=== PATIENT | female | born 1950 | race Caucasian/White ===

== ENCOUNTER → 2019-10-22 11:43 | Outpatient (CLI) | payer MEDICARE, OTHER, SELFPAY ==
--- NOTE | ~2019-10-22 | US_ITS ---
EXAMINATION: US thyroid DATE: 10/22/2019 12:06 INDICATION: Nontoxic multinodular goiter. TECHNIQUE: Multiple ultrasound images of the thyroid were obtained. COMPARISON: None. FINDINGS: The right thyroid lobe measures 3.2 x 0.7 x 1.0 cm. The left thyroid lobe measures 2.4 x 0.8 x 0.8 c m. The thyroid demonstrates heterogeneous echogenicity. Vascularity is increased. In the left thyroi d lobe, there is a 5 mm solid, hypoechoic, [id number] nodule with ill-defined margin without ech ogenic foci (TI-RADS TR4), likely not clinically significant. IMPRESSION: 1. Heterogeneous, hypervascular thyroid, likely chronic lymphocytic thyroiditis. Reviewed, dictated and finalized at location A. N HOSPITALIST PHYSICIAN IMPRESSION: 1. Heterogeneous, hypervascular thyroid, likely chronic lymphocytic thyroiditis .
== END ==
PROVIDERS: PCP Internal Medicine; Visit Provider Internal Medicine
DX: E04.2 Nontoxic multinodular goiter (principal)
CPT/HCPCS: 76536

== ENCOUNTER 2020-04-14 10:22 | Outpatient (CLI) | payer MEDICARE, OTHER, SELFPAY ==
--- NOTE | ~2020-04-14 | MM_ITS ---
EXAMINATION: MM screening [facility] BI w bre HISTORY: Screening TECHNIQUE: Craniocaudal and mediolateral oblique 3-D tomosynthesis images were obtained and synthetic 2-D images were generated. CAD analysis was submitted and interpreted. COMPARISON: Comparison to multiple prior studies sequentially, with oldest reviewed study dated 11/2013. BREAST PARENCHYMAL COMPOSITION: There are scattered areas of fibroglandular density. FINDINGS: Stable benign-appearing right breast mass. There is no evidence of suspicious mass, calcifi cation, or architectural distortion to suggest malignancy in either breast. There has been no suspici ous interval change. IMPRESSION: 1. No mammographic evidence of malignancy. 2. Recommend routine screening mammography in one year. BI-RADS Category 2: Benign finding(s). Reviewed, dictated and finalized at location A.
== END 2020-04-14 10:23 | disposition home or self-care (01) ==
PROVIDERS: PCP Internal Medicine; Visit Provider Internal Medicine
DX: Z12.31 Encounter for screening mammogram for malignant neoplasm of breast (principal)
CPT/HCPCS: 77063; 77067

== ENCOUNTER → 2020-11-16 10:45 | Outpatient (CLI) | payer MEDICARE, OTHER, SELFPAY ==
--- NOTE | ~2020-11-16 | US_ITS ---
EXAMINATION: US thyroid EXAM DATE: 11/16/2020 11:27 INDICATION: Non-toxic multinodular goiter. TECHNIQUE: Multiple grayscale and Doppler images of the thyroid were obtained (by a technologist who performed the scan) and subsequently reviewed. Individual nodules and recommendations may be reporte d in accordance with TI-RADS system as designated by the 2017 ACR White Paper TI-RADS committee. Comp arison is made to prior examination from 10/22/2019. FINDINGS: The right thyroid lobe measures 2.3 x 0.8 x 0.8 cm, the left measuring 2.3 x 0.8 x 0.6 cm. Diffusely heterogeneous thyroid echogenicity without superimposed focal nodule identified. IMPRESSION: Small heterogeneous thyroid. Reviewed, dictated and finalized at location B. MOTOR OPERATOR
== END ==
PROVIDERS: PCP Internal Medicine; Visit Provider Internal Medicine
DX: E04.2 Nontoxic multinodular goiter (principal)
CPT/HCPCS: 76536

== ENCOUNTER 2021-05-11 08:44 | Outpatient (CLI) | payer MEDICARE, SELFPAY ==
--- NOTE | ~2021-05-11 | MM_ITS ---
EXAMINATION: MM screening [facility] BI w bre HISTORY: Screening TECHNIQUE: Craniocaudal and mediolateral oblique 3-D tomosynthesis images were obtained and synthetic 2-D images were generated. CAD analysis was submitted and interpreted. COMPARISON: Comparison to multiple prior studies sequentially, with oldest reviewed study dated 05/2015. BREAST PARENCHYMAL COMPOSITION: There are scattered areas of fibroglandular density. FINDINGS: There is a stable circumscribed radiolucent mass in the upper outer quadrant of the right b reast without significant change dating back to 12/17/2014, considered benign in the absence of gandara e. There is no evidence of suspicious mass, calcification, or architectural distortion to suggest mal ignancy in either breast. There has been no suspicious interval change. IMPRESSION: 1. No mammographic evidence of malignancy. 2. Recommend routine screening mammography in one year. BI-RADS Category 2: Benign finding(s). Reviewed, dictated and finalized at location A.
== END 2021-05-11 08:45 | disposition home or self-care (01) ==
LOC: ANHIMG 08:48
PROVIDERS: PCP Internal Medicine; Visit Provider Internal Medicine
DX: Z12.31 Encounter for screening mammogram for malignant neoplasm of breast (principal)
CPT/HCPCS: 77063; 77067

== ENCOUNTER → 2021-12-07 10:54 | Outpatient (CLI) | payer MEDICARE, SELFPAY ==
--- NOTE | ~2021-12-07 | US_ITS ---
EXAMINATION: US thyroid DATE: 12/07/2021 12:32 INDICATION: Nontoxic multinodular goiter. TECHNIQUE: Multiple ultrasound images of the thyroid were obtained. COMPARISON: Ultrasound 11/16/2020 FINDINGS: The right thyroid lobe measures 2.7 x 1.1 x 0.8 cm. The left thyroid lobe measures 2.2 x 0.7 x 1.2 c m. The thyroid demonstrates heterogeneous echogenicity. No discrete nodule. Vascularity is normal. IMPRESSION: 1. Small heterogeneous thyroid, likely chronic lymphocytic (Jose R) thyroiditis. Reviewed, dictated and finalized at location A. IMPRESSION: 1. Small heterogeneous thyroid, likely chronic lymphocytic (Jose R) thyroidi tis.
--- NOTE | ~2021-12-07 | CT_ITS ---
EXAMINATION: CT abdomen pelvis wo/w con DATE: 12/07/2021 12:16 INDICATION: Microscopic hematuria TECHNIQUE: Computed tomography (CT) of the abdomen and pelvis was performed without and subsequently with 130 CC Omnipaque 350 intravenous contrast. Automated exposure control and iterative reconstructi on technique were employed. Exam dose: 1887.32 mGy-cm total exam DLP. COMPARISON: None. FINDINGS: There is mild discoid atelectasis or scarring at the lung bases. No basilar consolidation. Heart size is within normal range. No pericardial or pleural effusion. 2.4 cm lateral segment left hepatic cyst. Several much smaller hepatic cysts. The gallbladder is present. No gallbladder wall thickening or pericholecystic fluid or fat stranding. No bile duct or pancreatic duct dilatation. No hepatic space-occupying mass lesion. No pancreatic ma ss lesion or calcification. Normal splenic size with some calcified granulomas. Normal morphology of the adrenal glands 1.4 cm exophytic right renal cyst. 4 mm posterior lower pole left renal probable cortical cyst. No mass lesion of the renal collecting systems, renal pelves, ureters or urinary bladder is evident. No ureteral calculus or hydroureteronephrosis. The urinary bladder is unremarkable. Retroverted uteru s Small sliding hiatal hernia. Normal appendix. Diverticulosis of the colon; no CT evidence of diverticulitis. No bowel obstruction, bowel wall thickening, pneumatosis or intraperitoneal free air. Small fat-containing umbilical hernia. Degenerative changes of the lumbar spine. No suspicious osteolytic or osteoblastic lesions are noted. IMPRESSION: 1.4 cm right renal cyst 4 mm lower pole left renal cyst No urinary tract calculus or hydroureteronephrosis 2.4 cm lateral segment left hepatic cyst, several much smaller hepatic cysts Retroverted uterus Reviewed, dictated and finalized at Location A. Reviewed, dictated and finalized at location A.
--- NOTE | ~2021-12-07 | DEXA_ITS ---
Bone Density Report Name: EVITA BARILLAS Age: 71 Sex: Female Ethnicity: White Date of : 1950 Indication: monitoring treatment; parental hip fracture; height loss; postmenopausal Referring Provider: DONG, NURIS Study: Bone densitometry was performed. Exam Date: December 07, 2021 Accession number: [id number] Bone Density: Region BMD T-score Z-score Classification AP Spine (L1-L4) 1.326 2.5 4.9 Normal Femoral Neck (Left) 0.733 -1.0 1.0 Normal Total Hip (Left) 0.958 0.1 1.8 Normal Femoral Neck (Right) 0.705 -1.3 0.7 Osteopenia Total Hip (Right) 0.906 -0.3 1.4 Normal Total Hip Mean 0.932 -0.1 1.6 Normal World Health Organization criteria for BMD impression classify patients as: Normal (T-score at or above -1.0), Osteopenia (T-score between -1.0 and -2.5), or Osteoporosis (T-score at or below -2.5). 10-year Fracture Risk: FRAX not reported because: Treated for osteoporosis Previous Exams: Region Exam Age BMD T-score BMD Change BMD Change Date g/cm2 vs Baseline vs Previous AP Spine(L1-L4) 12/07/2021 71 1.326 2.5 0.204* 0.206* 10/05/2008 58 1.120 0.7 -0.002 -0.002 08/13/2006 56 1.122 0.7 Total Hip(Left) 12/07/2021 71 0.958 0.1 0.007 -0.012 10/05/2008 58 0.970 0.2 0.019 0.019 08/13/2006 56 0.951 0.1 Total Hip(Right) 12/07/2021 71 0.906 -0.3 -0.045* -0.042* 10/05/2008 58 0.948 0.1 -0.003 -0.003 08/13/2006 56 0.952 0.1 *Denotes significance at 95% confidence level, LSC for AP Spine = 0.022 g/cm2, LSC for Total Hip = 0.027 g/cm2 Clinical Information Provided by Patient: Parent has had a hip fracture Is being treated for osteoporosis Has used the following medications: Fosamax (i.e. alendronate), Vitamin D, Calcium Patient maximum height was 67 Menopause Age: 48 No regular weight bearing exercise Does not regularly consume dairy products Drinks caffeinated beverages Onset of menses at age 11 Number of children 2 Impression: The patient has low bone mass, based on the Right Femoral Neck T-score. The patient has risk factors, including: parental hip fracture. The BMD for the Total Hip(Right) decreased, changing by -0.042 since the last DXA exam. Discussion: SIGNIFICANT BONE LOSS OBSERVED. Adherence to therapy (including calcium and vitamin D intake) should be assessed. If compliance is not a
[2021-12-07 11:43] LABS: Estimated Glomerular Filt Rate > 60
== END ==
PROVIDERS: PCP Internal Medicine; Visit Provider Internal Medicine
DX: M85.88 Other specified disorders of bone density and structure, other site (principal); N95.1 Menopausal and female climacteric states; E04.2 Nontoxic multinodular goiter; R31.29 Other microscopic hematuria; N28.1 Cyst of kidney, acquired; M85.851 Other specified disorders of bone density and structure, right thigh
CPT/HCPCS: 74178; 76536; 77080; Q9967

== ENCOUNTER 2022-04-17 07:43 | Outpatient (CLI) | payer MEDICARE, SELFPAY ==
--- NOTE | 2022-04-17 | ECHO_ITS ---
Patient Info Name: Bárbara Day Age: 72 years : 1950 Gender: Female Ht: 64 in Wt: 193 lbs BSA: 2.02 m2 HR: 67 bpm BP: 146 / 87 mmHg Heart Rhythm: Sinus Rhythm Technical Quality: Fair Exam Date: 04/17/2022 8:17 AM Exam Location: [facility] Pulmonary Patient Status: Outpatient Admit Date: 04/17/2022 Staff Ordering Physician: Tabitha, Adela CEDENO Hydraulic Design Engineer: Noa Doyle RDCS Attending Provider: Tabitha, Adela CEDENO Exam Type: CA echo doppler color flow Study Info Indications R00.2 - Palpitations Complete two-dimensional, color flow and Doppler transthoracic echocardiogram is performed. Summary 1. Complete two-dimensional, color flow and Doppler transthoracic echocardiogram is performed. 2. Normal left ventricular size, thickness systolic and diastolic function. 3. Dilated left atrium. 4. Trivial amount of mitral regurgitation. Left Ventricle Left ventricular chamber dimension is normal. Left ventricular systolic function is normal, estimated at 60-65%. The left ventricular diastolic function is normal. Right Ventricle Right ventricular chamber dimension is normal. Left Atria Left atrial chamber dimension is moderately enlarged. Right Atria Right atrial chamber dimension is normal. Aortic Valve The aortic valve is trileaflet. There is mild aortic valve sclerosis. Pulmonic Valve The pulmonic valve is normal. Mitral Valve The mitral valve has normal leaflets. There is trace mitral valve regurgitation. Tricuspid Valve The tricuspid valve leaflets are normal. Pericardium/Pleural The pericardium appears normal. Aorta The aortic root size at the sinus of Valsalva is normal. Left Ventricular Outflow Tract Name Value Normal LVOT 2D LVOT Diameter 2.0 cm LVOT Doppler LVOT Peak Gradient 5 mmHg LVOT Mean Gradient 3 mmHg LVOT VTI 24 cm LVOT VTI/AV VTI Ratio 0.9 LVOT Stroke Volume 74 ml LVOT CO 4.4 l/min LVOT CI 2.2 l/min/m2 Pulmonic Valve Name Value Normal RVOT Doppler RVOT Peak Gradient 2 mmHg PV Doppler PV Peak Gradient 7 mmHg Mitral Valve Name Value Normal MV Doppler MV Decel [place] 313 cm/s2 MV PHT 73 ms MV Area (PHT) 3.0 cm2 4.0-5.0
== END 2022-04-17 07:44 | disposition home or self-care (01) ==
LOC: ANHCARD 07:45
PROVIDERS: PCP Internal Medicine; Visit Provider Internal Medicine
DX: R00.2 Palpitations (principal)
CPT/HCPCS: 93306

== ENCOUNTER 2022-07-07 10:36 | Outpatient (CLI) | payer MEDICARE, SELFPAY ==
--- NOTE | ~2022-07-07 | MM_ITS ---
EXAMINATION: MM screening [facility] BI w bre HISTORY: Screening mammogram TECHNIQUE: Craniocaudal and mediolateral oblique 3-D tomosynthesis images were obtained and synthetic 2-D images were generated. CAD analysis was submitted and interpreted. COMPARISON: 05/11/2021, 04/14/2020, 02/05/2019 BREAST PARENCHYMAL COMPOSITION: There are scattered areas of fibroglandular density. FINDINGS: A stable mass of the outer right breast is consistent with a benign finding. No suspicious mass, calcification, or architectural distortion are identified in either breast to suggest malignanc y. There has been no suspicious interval change. IMPRESSION: 1. No mammographic evidence of malignancy. 2. Recommend routine screening mammography in one year. BI-RADS Category 2: Benign finding(s). Reviewed, dictated and finalized at location A.
== END 2022-07-07 10:37 | disposition home or self-care (01) ==
PROVIDERS: PCP Internal Medicine; Visit Provider Obstetrics & Gynecology
DX: Z12.31 Encounter for screening mammogram for malignant neoplasm of breast (principal)
CPT/HCPCS: 77063; 77067

== ENCOUNTER → 2023-04-25 07:45 | Outpatient (CLI) | payer MEDICARE, SELFPAY ==
--- NOTE | ~2023-04-25 | US_ITS ---
EXAMINATION: US thyroid DATE: 04/25/2023 08:15 INDICATION: Nontoxic multinodular goiter. TECHNIQUE: Multiple ultrasound images of the thyroid were obtained. COMPARISON: Ultrasound 12/07/2021 FINDINGS: The right thyroid lobe measures 2.5 x 0.7 x 0.8 cm. The left thyroid lobe measures 3.7 x 1.1 x 0.9 c m. The thyroid demonstrates diffusely heterogeneous echogenicity. Vascularity is normal. IMPRESSION: 1. Small heterogeneous thyroid, likely chronic lymphocytic (Jose R) thyroiditis. Reviewed, dictated and finalized at location A. IMPRESSION: 1. Small heterogeneous thyroid, likely chronic lymphocytic (Jose R) thyroidi tis.
== END ==
PROVIDERS: PCP Internal Medicine; Visit Provider Internal Medicine
DX: E04.2 Nontoxic multinodular goiter (principal)
CPT/HCPCS: 76536

== ENCOUNTER 2023-12-12 14:31 | Outpatient (CLI) | payer MEDICARE, SELFPAY ==
--- NOTE | ~2023-12-12 | MM_ITS ---
EXAMINATION: MM screening [facility] BI w bre HISTORY: Screening TECHNIQUE: Craniocaudal and mediolateral oblique 3-D tomosynthesis images were obtained and synthetic 2-D images were generated. CAD analysis was submitted and interpreted. COMPARISON: Comparison to multiple prior studies sequentially, with oldest reviewed study dated 01/18. BREAST PARENCHYMAL COMPOSITION: Not dense: There are scattered areas of fibroglandular density. FINDINGS: Stable benign-appearing mass upper outer quadrant of the right breast. There is no evidence of suspicious mass, calcification, or architectural distortion to suggest malignancy in either breas t. There has been no suspicious interval change. IMPRESSION: 1. No mammographic evidence of malignancy. 2. Recommend routine screening mammography in one year. BI-RADS Category 2: Benign finding(s). Reviewed, dictated and finalized at location A.
== END 2023-12-12 14:32 | disposition home or self-care (01) ==
LOC: ANHIMG 14:34
PROVIDERS: PCP Internal Medicine; Visit Provider Internal Medicine
DX: Z12.31 Encounter for screening mammogram for malignant neoplasm of breast (principal)
CPT/HCPCS: 77063; 77067

== ENCOUNTER 2024-03-17 10:23 | Outpatient (CLI) | payer MEDICARE, SELFPAY ==
--- NOTE | ~2024-03-17 | MMUS_ITS ---
EXAMINATION: MM diagnostic [facility] LT w bre, US breast LT limited HISTORY: Left nipple abnormality TECHNIQUE: Additional 3-D tomosynthesis images of the left breast were performed and synthetic 2-D im ages were generated. CAD analysis was submitted and interpreted. High resolution Limited left breast ultrasound was performed. COMPARISON: Comparison to multiple prior studies sequentially, with oldest reviewed study dated 01/21. BREAST PARENCHYMAL COMPOSITION: Not dense: There are scattered areas of fibroglandular density. FINDINGS: MAMMOGRAPHIC FINDINGS: There are no suspicious masses, calcifications or architectural distortion in the left breast to sugg est malignancy. ULTRASOUND: Limited left breast ultrasound: Normal heterogeneous echotexture without focal solid or cystic mass. IMPRESSION: 1. No evidence for malignancy in the left breast. 2. Routine yearly screening mammogram and regular clinical breast examination are recommended. BI-RADS Category 1: Negative Reviewed, dictated and finalized at location B. IMPRESSION: 1. No evidence for malignancy in the left breast. 2. Routine yearly screening mammogram and regular clinical breast examination a re recommended. BI-RADS Category 1: Negative
== END 2024-03-17 10:24 | disposition home or self-care (01) ==
LOC: ANHIMG 10:25
PROVIDERS: PCP Internal Medicine; Visit Provider Nurse Practitioner
DX: N64.59 Other signs and symptoms in breast (principal)
CPT/HCPCS: 76642; 77061; 77065; G0279

== ENCOUNTER 2024-05-02 08:34 | Outpatient (CLI) | payer MEDICARE, SELFPAY ==
--- NOTE | 2024-05-02 | ECHO_ITS ---
Patient Info Name: Bárbara Day Age: 74 years : 1950 Gender: Female Ht: 64 in Wt: 175 lbs BSA: 1.92 m2 HR: 59 bpm BP: 127 / 78 mmHg Technical Quality: Good Exam Date: 05/02/2024 8:50 AM Exam Location: Echo Lab Patient Status: Outpatient Admit Date: 05/02/2024 Staff Ordering Physician: Sami, Dany CEDENO Glue Spreading Machine Operator: Noa Doyle RDCS Attending Provider: Sami, Dany CEDENO Exam Type: CA echo doppler color flow Study Info Indications R60.0 - Localized edema Complete two-dimensional, color flow and Doppler transthoracic echocardiogram is performed. Strain analysis performed. Summary 1. Complete two-dimensional, color flow and Doppler transthoracic echocardiogram is performed. 2. Left ventricular chamber dimension is normal. 3. Left ventricular systolic function is normal, estimated at 60-65%. 4. The left ventricular diastolic function is grade I diastolic dysfunction. 5. E/e' 11 is mildly elevated. 6. Global longitudinal strain is normal at -21.1%. 7. Left atrial chamber dimension is moderately enlarged. 8. There is mild aortic valve sclerosis. 9. There is mild aortic valve regurgitation. 10. There is mild mitral valve regurgitation. 11. There is mild tricuspid valve regurgitation. 12. No pulmonary hypertension, estimated pulmonary arterial systolic pressure is 37 mmHg. Left Ventricle E/e' 11 is mildly elevated. Global longitudinal strain is normal at -21.1%. Left ventricular chamber dimension is normal. Left ventricular systolic function is normal, estimated at 60-65%. The left ventricular diastolic function is grade I diastolic dysfunction. Right Ventricle Right ventricular systolic function is normal and with normal TAPSE 2.1 cm. Right ventricular chamber dimension is normal. Left Atria Left atrial chamber dimension is moderately enlarged. Right Atria Right atrial chamber dimension is normal. Aortic Valve The aortic valve is trileaflet. There is mild aortic valve sclerosis. There is no aortic valve stenosis. There is mild aortic valve regurgitation. Pulmonic Valve There is no pulmonic regurgitation. Mitral Valve There is no mitral valve stenosis. There is mild mitral valve regurgitation. Tricuspid Valve There is mild tricuspid valve regurgitation. No pulmonary hypertension, estimated pulmonary arterial systolic pressure is 37 mmHg. Pericardium/Pleural There is no pericardial effusion. Inferior Vena Cava Normal inferior vena cava with >50% collapse upon inspiration consistent with normal right atrial pressure, 5 mmHg. Aorta The aortic root size at the sinus of Valsalva is normal. Left Ventricular Outflow Tract Name Value Normal LVOT 2D LVOT Diameter 2.0 cm LVOT Doppler LVOT Peak Gradient 6 mmHg LVOT Mean Gradient 3 mmHg LVOT VTI 27 cm LVOT VTI/AV VTI Ratio 0.9 LVOT Stroke Volume 84 ml LVOT CO 4.8 l/min LVOT CI 2.5 l/min/m2 Pulmonic Valve Name
== END 2024-05-02 08:35 | disposition home or self-care (01) ==
LOC: ANHCARD 08:34
PROVIDERS: PCP Internal Medicine; Visit Provider Specialist
DX: R60.0 Localized edema (principal); I34.0 Nonrheumatic mitral (valve) insufficiency; I35.1 Nonrheumatic aortic (valve) insufficiency; I36.1 Nonrheumatic tricuspid (valve) insufficiency
CPT/HCPCS: 93306

== ENCOUNTER 2024-06-23 14:33 | Outpatient (CLI) | payer MEDICARE, SELFPAY ==
--- NOTE | ~2024-06-23 | US_ITS ---
EXAMINATION: US thyroid DATE: 06/23/2024 15:31 INDICATION: Nontoxic multinodular goiter. TECHNIQUE: Multiple ultrasound images of the thyroid were obtained. COMPARISON: Ultrasound 04/25/2023 FINDINGS: The right thyroid lobe measures 3.3 x 0.9 x 0.7 cm. The left thyroid lobe measures 3.3 x 1.2 x 1.1 c m. The thyroid demonstrates heterogeneous echogenicity and increased vascularity. No discrete nodule . IMPRESSION: 1. Heterogeneous, hypervascular thyroid, likely chronic lymphocytic (Jose R) thyroiditis. Reviewed, dictated and finalized at location A.
== END 2024-06-23 14:34 | disposition home or self-care (01) ==
PROVIDERS: PCP Internal Medicine; Visit Provider Internal Medicine
DX: E04.2 Nontoxic multinodular goiter (principal); Z78.0 Asymptomatic menopausal state
CPT/HCPCS: 76536

== ENCOUNTER 2024-12-18 08:01 | Outpatient (CLI) | payer MEDICARE, SELFPAY ==
--- NOTE | ~2024-12-18 | MM_ITS ---
EXAMINATION: MM screening [facility] BI w bre HISTORY: Screening TECHNIQUE: Craniocaudal and mediolateral oblique 3-D tomosynthesis images were obtained and synthetic 2-D images were generated. CAD analysis was submitted and interpreted. COMPARISON: Comparison to multiple prior studies sequentially, with oldest reviewed study dated 02/05. BREAST PARENCHYMAL COMPOSITION: Not dense: There are scattered areas of fibroglandular density. FINDINGS: Benign low-density mass in the upper outer quadrant of the right breast is unchanged. There is no evidence of suspicious mass, calcification, or architectural distortion to suggest malignancy in either breast. There has been no suspicious interval change. IMPRESSION: 1. No mammographic evidence of malignancy. 2. Recommend routine screening mammography in one year. BI-RADS Category 2: Benign finding(s). Reviewed, dictated and finalized at location A.
--- OUTSIDE RECORDS SUMMARY | 2024-12-18 08:06 | XMS_ITS | Clinical Summary ---
Author Organization [facility] Address [address] [place] [id number] Care Team Providers Care Icu Rn Name Role Phone Unavailable Primary Care Provider Unavailabl e Social History Tobacco Use Types Packs/Day Years Used Date Smoking Tobacco: Never Assessed Comments Unknown Sex and Gender Information Value Date Recorded Sex Assigned at Not on file Legal Sex Female 7:43 PM CDT Gender Identity Not on file Sexual Orientation Not on file Plan of Treatment Health Maintenance Due Date Last Done Comments Hepatitis C 02/20/1966 DTaP, Tdap and Td Vaccines ( 1 - Tdap) 02/20/1967 Zoster Vaccines (1 of 2) 02/20/1998 Dexa Scan (General) 02/20/2013 Pneumococcal Vaccine: 65+ Ye ars (1 of 1 - PCV) 02/20/2013 RSV Immunization or 60+ Years (1 - 1-dose 75+ series) 02/20/2023 COVID-19 Vaccine ( - 2023-2 5 season) 2024 Meningococcal B Vaccine Aged Out No l onger eligible based on patient's age to complete this topic Meningococcal Vaccine Aged Out No edwige chelita eligible based on patient's age to complete this topic RSV Immunizations Under 20 Months Aged Out No longer eligible based on patient's age to complete this topic
--- OUTSIDE RECORDS SUMMARY | 2024-12-18 08:06 | XMS_ITS | Continuity of Care Document ---
Author Organization [facility] Address [address] [place] [address] Phone Care Team Providers Care Trimmer Climber Name Role Phone Garcia OD, Srinath Unavailable Unavailable Advance Directives Directive Yes / No Effective Date File Name No Information Encounters Encounter Description Practice Location Reason(s) For Visit Diagnoses Date Provider Providers Copied on Encounter [facility], [address], [place], [place], [id number], [place] tel:[phone] [facility] No Information 2-200 2 Garcia OD Srinath. [address] , [address], [place], [address], [place]. tel:[phone] Family History Family Member Type Diagnosis Age At Onset No Information Payers Payer name Insurance type Covered green party ID Authoriza tion(s) No Information Social History Type Description Quantity Date Captured Comments Sex Female Smoking Status No Information Chief Complaint And Reason For Visit No Information Reason For Referral Reason For Referral No Information History Of Present Illness Encounter Date Complaint History Of Prese nt Illness No Information Functional Status Date Functional Assessmen t No Information Instructions Date Instruction Additional Infor mation No Information Assessments Type Assessment Date No Information Patient Care Teams Name Effective Dates (start - stop) Status Members No Information
--- OUTSIDE RECORDS SUMMARY | 2024-12-18 08:07 | XMS_ITS | Data Portability ---
Author Organization [facility] [place], [place] Address [address] [place] [address] [address] [place] [address] Assessment Encounter Date Assessment Date Assessment LastModified by Organization Details LastModified Time 05/02/2022 05/02/2022 healthy female exam/menopause no further paps needed- over 70yo mammogram already ordered, encouraged colonoscopy due 2023 dexa repeat 2-3 years, continue alendronate Encouraged weight bearing exercise and 1500mg daily of Calcium with Vitamin D FU 1 year or prn rebel Not available 05/02/2022 10:41:42 Plan of Treatment Reminders Order Date Submit Date Provider Last Modified By Organization Details Last Modified Time Details Appointments None recorded. Lab None recorded. Referral None recorded. Procedures None recorded. Surgeries None recorded. Imaging US, breast, unilateral 2023 024 [facility], [address], [place], [address], 4 17:09:26 MAMMO, diagnostic, digital, unilateral 2023 024 [facility], [address], [place], [address], 4 17:09:26 Medication Orders None recorded. Patient TargetsNo targets recorded. Patient InstructionsNo instructions recorded. Reason for Referral None Reported. Results Created Date Observation Date Name Description Value Unit Range Abnormal Flag Note LastModifiedBy Organization Detail LastModifiedTime 07/07/2007/07/2022 MAMMO , scree delores, bilat eral No observ ation record ed. [email or web address] [facility] [address], [place], [address], 07/10/2022 09:19:21 03/18/2003/17/2024 MAMMO , diagn ostic , digit al, unila teral No observ ation record ed. [address], [place], [address], 03/21/2024 11:43:29 03/18/20 24 03/17/2024 US, breas t, unila teral No observ ation record ed. [place] [id number] [facility] [address], [place], [address], 03/21/2024 11:43:29 Result Notes None recorded. Problems Name Problem SNOMED Code Status Onset Date Resolution Date Notes Provider Name and Address Organization Details Recorded Time Essential hypertension 62638826 Active 2021 Michelle Burgos MD [address], [place], [address], [facility] 2 10:14:48 Hypothyroidi sm 20850681 Active 2021 Michelle Burgos MD [address], [place], [address], [facility] 2 10:14:59 Hypercholest erolemia 50801865 Active 2021 Michelle Burgos MD [address], [place], [address], [facility] 2 10:15:06 Osteopenia 675805833 Active 2021 Michelle Burgos MD [address], [place], [address], [facility] 2 10:39:13 Problem Notes None recorded. Procedures Surgical History Date Name Laterality Status Provider Name and Address Organization Details Recorded Time 09/10/19 Most Recent Bone Density completed Pauly Osman [facility] 05/02/2022 10:13:14 09/10/19 19 Date of Last [facility] 10:13:04 09/10/18 55 tonsillectomy completed [facility] 05/02/2022 10:15:00 Imaging Results Imaging Date Name Status LastModified by Organiz ation Details LastModified Time 07/07/2022 MAMMO, screening, bilateral completed [email or web address], [address], 07/10/2022 09:19:21 03/17/2024 MAMMO, diagnostic, digital, unilateral completed [address], [address], 03/21/2024 11:43:29 03/17/2024 US, breast, unilateral completed [address], [address], 03/21/2024 11:43:29 Procedure Notes None recorded. Medical Equipment None Reported. Allergies Allergen ID Allergen Name Allergen Category Reaction Reaction Severity Criticality Documentation Date Start Date Code Code System Note Provider Name and Address Organization Details Recorded Time 53718 Substance with sulfonami de structure and antibacte rial mechanism of action (substanc e) medicatio n Not available Not available Not available 05/02/2022 00895 8003 SNOMED [facility], [facility] 10:03:14 Medications Name Sig Start Date Stop Date Status Note LastModified by Organization Details LastModified Time cetirizine 10 mg tablet TAKE 1 TABLET BY MOUTH EVERY DAY AT BEDTIME active Not Available Not Available No t Available azithromyci n 250 mg tablet FOLLOW PACKAGE DIRECTION S 02/24 completed Not Available Not Available Not Available metoprolol succinate ER 50 mg tablet,exte nded release 24 hr TAKE 1 AND 1/2 TABLETS BY MOUTH EVERY DAY active Not Available Not Available No t Available alendronate 70 mg tablet TAKE 1 TABLET BY MOUTH 1 TIME A WEEK active Not Available Not Available No t Available penicillin V potassium 500 mg tablet TAKE 1 TABLET BY MOUTH EVERY 8 HOURS UNTIL ALL TAKEN 02/24 completed Not Available Not Available Not Available doxycycline monohydrate 100 mg tablet TAKE 1 TABLET BY MOUTH ONCE DAILY active Not Available Not Available No t Available triamcinolo ne acetonide 0.1 % topical cream APPLY TOPICALLY TO THE AFFECTED AREA TWICE DAILY APPLY TO THE AFFECTED AREA 2 TIMES DAILY NEEDED FOR RASH 05/02 completed Not Available Not Available Not Available doxycycline monohydrate 100 mg capsule TAKE 1 CAPSULE BY MOUTH EVERY DAY 02/24 completed Not Available Not Available Not Available losartan 25 mg tablet TAKE 1 TABLET BY MOUTH DAILY active Not Available Not Available No t Available pravastatin 20 mg tablet TAKE 1 TABLET BY MOUTH EVERY DAY AT BEDTIME active Not Available Not Available No t Available furosemide 20 mg tablet TAKE 1 TABLET BY MOUTH EVERY MORNING NEEDED active Not Available Not Available No t Available fluticasone propionate 50 mcg/actuati on nasal spray,suspe nsion SHAKE LIQUID AND USE 1 SPRAY IN EACH NOSTRIL EVERY DAY 05/02 completed Not Available Not Available Not Available furosemide 02/24 completed Not Available Not Available Not Available Synthroid active Not Available Not Lalita ilable Not Available Eliquis 5 mg tablet TAKE 1 TABLET BY MOUTH TWICE DAILY active Not Available Not Available No t Available BinaxNOW COVID-19 Ag Self Test kit Use as Directed on the Package 02/24 completed Not Available Not Available Not Available Vitals Date Recorded Body height Body mass index (BMI) Body weight Systolic blood pressure Diastolic blood pressure Provider Name and Address Organization Details Last Updated DateTime 05/02/2022 162.56 cm 34 kg/m2 88230.29 g 117 mm[Hg] 73 mm[Hg] Pauly Osman [facility] 2 10:09:07 Date Recorded Body height Body mass index (BMI) Body weight Systolic blood pressure Diastolic blood pressure Provider Name and Address Organization Details Last Updated DateTime 02/25/2024 162.56 cm 30.6 kg/m2 24427.44 g 136 mm[Hg] 80 mm[Hg] Rohini Daigle [facility] 4 11:26:37 Social History Question Answer Notes LastModified by Organizat ion Details LastModified Time Tobacco Smoking Status Never Smoker Paulyjazzy Duranprudencio [facility] 05/02/2022 10:09:40 What Is Your Level Of Alcohol Consumption? None Information not available 05/02/2022 In The 14 Days Before Symptom Onset, Have You Had Close Contact With A Laboratory-confirm ed COVID-19 While That Case Was Ill? No Information n ot available 02/25/2024 In The 14 Days Before Symptom Onset, Have You Had Close Contact With A Person Who Is Under Investigation For COVID-19 While That Person Was Ill? No Information not available 02/25/2024 Have You Been To An Area Known To Be High Risk For COVID-19? No Information not available 02/25/2024 Do You Use Any Illicit Or Recreational Drugs? No Information not available 05/02/2022 Has Tobacco Cessation Counseling Been Provided? No Information not available 05/02/2022 Do You Or Have You Ever Used Any Other Forms Of Tobacco Or Nicotine? No Information not available 05/02/2022 Sex: Unknown Functional Status None recorded. Mental Status None recorded. Family History Relationship Description Onset Age of this Age Resolved Age Notes LastModified by Organization Details LastModified Time Mother Malignant tumor of colon smcaley Not available 2021 10:15:17 Mother Heart disease smcaley Not available 2021 10:15:27 Mother Hypercholest erolemia smcaley Not available 2021 10:15:36 Mother Hypertensive disorder smcaley Not available 2021 10:15:43 Mother Seizure disorder smcaley Not available 2021 10:15:56 Mother Disorder of thyroid gland smcaley Not available 2021 10:16:03 Father Heart disease smcaley Not available 2021 10:15:27 Father Hypercholest erolemia smcaley Not available 2021 10:15:36 Medical History Condition Response Allergies (Food, seasonal, environmental ) N Other N Drug/Latex Allergies/Reactions N Blood Transfusion N Breast Cancer N Dermatologic Disorders N Lung Disease N Defects or Inherited Disease N Breast Problem N Gestational Diabetes N Hematologic disorders N Anesthesia Complications N History of STI N Deep Vein Thrombosis N Polycystic ovary syndrome N Anxiety Disorder N Autoimmune disease N Arthritis N Polyps N Infertility N Acid Reflux (GERD) N History of abnormal pap N Cancer N Varicosities N Stroke N Neurologic/Epilepsy N Endometriosis N High Cholesterol Y Fibromyalgia N Headaches N Kidney Disease N Heart Problems Y Thyroid Problems Y Kidney or Bladder Problems N GI Problems N Eating Disorder N Anemia Y Art (IVF or FET) N Psychiatric Illness N Ovarian Cancer N Diabetes N Pulmonary (TB, Asthma) N Hepatitis/Liver Disease N No Past Medical History N Eczema N Urinary Tract Infection N Abuse/Domestic Violence N Asthma N Trauma/Violence N Depression/ depression N Heart Disease N Pre-Eclampsia N Hypertension Y Osteoporosis N Thrombophilias N Gynecological History Statement/Question Response Abnormal Pap N Date of Last Mammogram On BCP's at Conception? N STIs/STDs N HPV Vaccine N Colposcopy Current Control Method None Age at First Child 22 Date of Last Colonoscopy 09/10/2018 Most Recent Bone Density 09/10/2021 Sexually Active? N Age of first menstrual cycle 9 Date of Last Pap Smear Sexual Problems? N Obstetrics History GPAL:G 2 P 2 0 0 2 Type Value Full Term 2 Living 2 Total 2 Past Encounters Encounter ID Performer Location Encounter Start Date Encounter Closed Date Diagnosis/Indication Diagnosis SNOMED-CT Code Diagnosis ICD10 Code Diagnosis Note [id number] Michelle Burgos MD [facility] [address] [address] 05/02/2022 10:00:00 05/02/2022 10:58:10 Gynecologic examination 74707878 Z01.419 Osteopenia 277749814 M85 .80 [id number] LUIS Negrete [place] [address] [address] 06/13/2023 10:42:48 06/14/2023 16:39:21 Left without being seen [id number] 9102 Z53.21 [id number] LUIS Negrete [place] [address] [address] 02/25/2024 10:57:00 02/25/2024 12:43:29 Lesion of left nipple [id number] 2932504 N64.59 warm compress to areano s/sx's of infection, pt to notify office with any changes/pr ecautions discussedo rder for left breast imaging given Time spent in visit is a total of 18 mins with at least 50% of visit consisting of counseling and review of plan of care. Health Concerns Section Related Observation LastModified by Organization Detai ls LastModified Time None Recorded Concern Status LastModified by Organization Details LastModified Time None Recorded Advance Directives Directive None Recorded Payers Encounter Date Sequence Insurance Name Policy Number Policy Gao Covered Member ID Gao Member ID Guarantor Name 05/02/2022 1 MEDICARE B: [employer] MEDICARE Bárbara Bell Barb [id number] Bárbara Barb 05/02/2022 3 [employer] (MEDICARE SUPPLEMENT) Bárbara Barb [id number] Bárbara Barb 06/13/2023 1 MEDICARE B: [employer] MEDICARE Bárbara Bell Barb [id number] Bárbara Barb 06/13/2023 3 [employer] (MEDICARE SUPPLEMENT) Bárbara Barb [id number] Bárbara Barb 02/25/2024 1 MEDICARE B: [email or web address] MEDICARE Bárbara Bell Barb [id number] Bárbara Barb 02/25/2024 3 [employer] (MEDICARE SUPPLEMENT) Bárbara Barb [id number] Bárbara Barb Notes Date Note Type Note Provider Name and Address Organization Details Recorded Time 05/02/2022 text/html Patient is a 72y o who presents for an annual exam. No concerns.last pap-2018 all normal for eons mammo-2020, has order from PCPcolonoscopy-2019, 5 yearsdexa-2021 osteopeniamenopause-[age]yo, no bleedingsexually crhfrq-nlqxtkkkyr-tkt ercise-y, walks 3x per weekdepression-denies domestic violence-deniestobacc d-nrxahekab-v Michelle Burgos MD [address], [place], [address], [place] [facility] [place] 05/02/2022 10:41:56 02/25/2024 text/html 74yopresents for evaluation of breast lesionnoticed small white bump on left nipple about 2 weeks agopinpoint sizedno pain/redness/drainage /or nipple dischargeno n/v/f, no flu-like symptoms mammogram last 12/2022 : normal per pt LUIS Negrete [address], [place], [address], [place] [facility] [place] [facility] 02/25/2024 12:38:47 OBGyn Episode Ob Episode Information Episode Created Date Number of Fetuses Patient Bloodtype Patient rh Status Prepregnancy Weight lbs Domestic Partner Domestic Partner Phone Father Name Risk Modeler Status 05/02/20 22 1 CLOSED Fetus Data First Name Last Name Admitted to NICU Weight (g) Sex Living Outcome Pediatric Complications Fetus ID Race Codes Race Delivery Type M [id number] Vaginal Delivery Stuart Calculation Initial Stuart Date Initial Exam Date Initial Exam Provider Initial Ultrasound Date Last Menstrual Period Date Ultra Sound Weeks Gestation 0 Eighteen To Twenty Week Stuart Update Ultra Sound Date Fundal Height At Umbil Quickening Date Ultra Sound Latest Weeks Gestation Final Stuart Confirmed By Final Stuart Confirmed Date Final Stuart Date Ultra Sound Latest Days Gestation 0 0 Menstrual History Last Menstrual Date Menses Monthly On Bcp Conception Prior Menses Frequency Hcg Plus Date Menarche Onset Age Delivery Information Delivery Date Delivery Type Labor Anesthesia Weeks Gestation Incision Type Labor Labor Length Hrs Delivered By Post Complications Tubal Sterilization Discharge Date Comments 3 Discharge Information Feeding Method Contraceptive Method Maternal HG B and HCT Levels Ob Episode Information Episode Created Date Number of Fetuses Patient Bloodtype Patient rh Status Prepregnancy Weight lbs Domestic Partner Domestic Partner Phone Father Name Risk Modeler Status 05/02/20 22 1 CLOSED Fetus Data First Name Last Name Admitted to NICU Weight (g) Sex Living Outcome Pediatric Complications Fetus ID Race Codes Race Delivery Type M [id number] Vaginal Delivery Stuart Calculation Initial Stuart Date Initial Exam Date Initial Exam Provider Initial Ultrasound Date Last Menstrual Period Date Ultra Sound Weeks Gestation 0 Eighteen To Twenty Week Stuart Update Ultra Sound Date Fundal Height At Umbil Quickening Date Ultra Sound Latest Weeks Gestation Final Stuart Confirmed By Final Stuart Confirmed Date Final Stuart Date Ultra Sound Latest Days Gestation 0 0 Menstrual History Last Menstrual Date Menses Monthly On Bcp Conception Prior Menses Frequency Hcg Plus Date Menarche Onset Age Delivery Information Delivery Date Delivery Type Labor Anesthesia Weeks Gestation Incision Type Labor Labor Length Hrs Delivered By Post Complications Tubal Sterilization Discharge Date Comments 10/10/197 6 Discharge Information Feeding Method Contraceptive Method Maternal HG B and HCT Levels
--- OUTSIDE RECORDS SUMMARY | 2024-12-18 08:07 | XMS_ITS | Data Portability ---
Author Organization [facility] [employer] [facility], [employer] Address [address] [place] [address] Care Team Providers Care Wood Polisher Name Role Phone ADELA UMANA Primary Care Provider Assessment Encounter Date Assessment Date Assessment LastModified by Organization Details LastModified Time 07/18/2023 07/18/2023 Patient presented for follow up. Studies ordered as below. Discussed plan with patient/careg iver, who expressed understanding . Follow up as noted below. [email or web address] Not available 07/18/2023 09:57:08 10/19/2023 10/19/2023 Patient presented for follow up. Studies ordered as below. Discussed plan with patient/careg iver, who expressed understanding . Follow up as noted below. Not available 10/19/2023 10:40:21 01/18/2024 01/18/2024 Patient presented for follow up. Studies ordered as below. Discussed plan with patient/careg iver, who expressed understanding . Follow up as noted below. Not available 01/18/2024 10:32:24 06/05/2024 06/05/2024 Patient presented for follow up. Studies ordered as below. Discussed plan with patient/careg iver, who expressed understanding . Follow up as noted below. Not available 06/05/2024 10:10:17 Plan of Treatment Reminders Order Date Submit Date Provider Last Modified By Organization Details Last Modified Time Details Appointments None recorded. Lab urinalysis , dipstick 2023 024 [facility] [employer], [address], [place], [address], 5 11:47:26 CMP, serum or plasma 2023 024 [facility], [address], [place], [address], 5 04:10:37 CBC 2023 024 [facility], [address], [place], [address], 4 10:26:50 vitamin D, 25-hydroxy , total, serum 2023 024 [facility], [address], [place], [address], 5 04:10:37 urinalysis , dipstick 2023 024 [facility], [facility], [address], [place], [address], 4 13:01:10 CMP, serum or plasma 2023 024 [facility], [address], [place], [address], 4 04:37:36 CBC w/ auto diff 2023 024 [facility], [address], [place], [address], 4 04:37:37 HbA1c (hemoglobi n A1c), blood 2023 024 [facility], [address], [place], [address], 4 04:37:39 TSH + free T4, serum 2023 024 [facility], [address], [place], [address], 4 04:37:34 lipid panel, serum 2023 024 [facility], [address], [place], [address], 4 04:37:33 magnesium, serum or plasma 2023 024 [facility], [address], [place], [address], 4 04:37:35 urinalysis , dipstick 2023 024 [facility], [facility], [address] [place] [address] [address], [place], [address], 4 12:47:43 magnesium, serum or plasma 2023 024 [facility], [facility] [address], [place], [address], 4 03:24:03 CMP, serum or plasma 2023 024 [facility], [facility] [address], [place], [address], 4 03:24:04 CBC w/ auto diff 2023 024 [facility], [address], [place], [address], 4 03:24:05 lipid panel, serum 2023 024 [facility], [facility] [address], [place], [address], 4 03:24:00 vitamin D, 25-hydroxy , total, serum 2023 024 [facility], [address], [place], [address], 4 03:24:06 TSH + free T4, serum 2023 024 [facility], [address], [place], [address], 4 03:24:02 CMP, serum or plasma 2022 023 [facility] [employer] [facility], [address], [place], [address], 3 04:43:49 CBC w/ auto diff 2022 023 [facility], [address], [place], [address], 3 04:43:50 Referral optometris t referral 2023 024 [facility], [address] [place] [address], [place], [address], 5 07:33:13 optometris t referral 2023 024 [facility], [address] [address], [place], [address], 4 08:45:40 optometris t referral 2022 023 [facility], [address] [place] [address] 7, [place], [address], 4 04:11:00 Procedures None recorded. Surgeries None recorded. Imaging bone density 2023 024 [facility], [address], [place], [address], 5 04:06:32 bone density 2023 024 [facility], [address], [address], [place], [address], 4 04:10:37 US, thyroid 2023 024 [facility], [address], [place], [address], 4 10:49:05 MAMMO, screening, digital, bilateral 2023 024 [facility], [address], [place], [address], 4 21:30:31 MAMMO, screening, digital, bilateral 2022 023 [facility], [address], [place], [address], 3 05:34:00 Medication Orders famotidine 20 mg tablet 2023 024 [id number], [address], [place], [place], [id number], 4 10:25:43 Eliquis 5 mg tablet 2023 024 [email or web address] Not available 4 11:39:05 Synthroid 88 mcg tablet 2023 024 mshenouda Not available 4 22:24:38 cetirizine 10 mg tablet 2023 024 [facility]40634, [address], [place], [place], [id number], 4 11:26:54 Zithromax Z-Jp 250 mg tablet 2023 024 [id number], [address], [place], [place], [id number], 4 11:49:43 Patient TargetsNo targets recorded. Patient Instructions Encounter Date Encounter Id Patient Instructions Last Modified By Organization Details Last Modified Time 07/18/2023 [id number] mammogram: about this test mshenouda Not available 07/18/2023 10:56:04 atrial fibrillation: care instructions mshenouda Not available 07/18/2023 10:56:05 hypothyroidism: care instructions mshenouda Not available 07/18/2023 10:56:05 high cholesterol : care instructions mshenouda Not available 07/18/2023 10:56:04 body mass index: care instructions mshenouda Not available 07/18/2023 10:56:05 learning about healthy weight mshenouda Not available 07/18/2023 10:56:04 10/19/2023 [id number] mammogram: about this test mshenouda Not available 10/19/2023 11:26:44 arthritis: care instructions mshenouda Not available 10/19/2023 11:26:45 osteoarthritis: care instructions mshenouda Not available 10/19/2023 11:26:44 blood in the urine: care instructions mshenouda Not available 10/19/2023 11:26:44 back care and preventing injuries: care instructions mshenouda Not available 10/19/2023 11:26:45 getting back to normal after low back pain: care instructions mshenouda Not available 10/19/2023 11:26:44 learning about relief for back pain mshenouda Not available 10/19/2023 11:26:44 goiter: care instructions mshenouda Not available 10/19/2023 11:26:45 managing your allergies: care instructions mshenouda Not available 10/19/2023 11:26:44 seasonal allergies: care instructions mshenouda Not available 10/19/2023 11:26:44 heart valve disease: care instructions mshenouda Not available 10/19/2023 11:26:45 mitral valve regurgitation: care instructions mshenouda Not available 10/19/2023 11:26:44 atrial fibrillation: care instructions mshenouda Not available 10/19/2023 11:26:45 high cholesterol : care instructions mshenouda Not available 10/19/2023 11:26:44 hypothyroidism: care instructions mshenouda Not available 10/19/2023 11:26:45 body mass index: care instructions mshenouda Not available 10/19/2023 11:26:45 learning about healthy weight mshenouda Not available 10/19/2023 11:26:45 living will mshenouda Not available 05/2024 11:21:22 01/18/2024 [id number] mammogram: about this test mshenouda Not available 01/18/2024 11:17:46 blood in the urine: care instructions mshenouda Not available 01/18/2024 11:17:46 goiter: care instructions mshenouda Not available 01/18/2024 11:17:46 high cholesterol : care instructions mshenouda Not available 01/18/2024 11:17:46 body mass index: care instructions mshenouda Not available 01/18/2024 11:17:46 learning about healthy weight mshenouda Not available 01/18/2024 11:17:46 06/05/2024 [id number] mammogram: about this test mshenouda Not available 06/05/2024 10:25:04 blood in the urine: care instructions mshenouda Not available 06/05/2024 10:25:04 goiter: care instructions mshenouda Not available 06/05/2024 10:25:04 high cholesterol : care instructions mshenouda Not available 06/05/2024 10:25:04 atrial fibrillation: care instructions mshenouda Not available 06/05/2024 10:25:03 hypothyroidism: care instructions mshenouda Not available 06/05/2024 10:25:03 body mass index: care instructions mshenouda Not available 06/05/2024 10:25:03 learning about healthy weight mshenouda Not available 06/05/2024 10:25:04 09/09/2024 [id number] mammogram: about this test mshenouda Not available 09/09/2024 10:25:34 blood in the urine: care instructions mshenouda Not available 09/09/2024 10:25:35 seasonal allergies: care instructions mshenouda Not available 09/09/2024 10:25:34 goiter: care instructions mshenouda Not available 09/09/2024 10:25:35 atrial fibrillation: care instructions mshenouda Not available 09/09/2024 10:25:34 high cholesterol : care instructions mshenouda Not available 09/09/2024 10:25:34 rogerio's thyroiditis: care instructions mshenouda Not available 09/09/2024 10:25:35 hypothyroidism: care instructions mshenouda Not available 09/09/2024 10:25:35 body mass index: care instructions mshenouda Not available 09/09/2024 10:25:35 learning about healthy weight mshenouda Not available 09/09/2024 10:25:35 Reason for Referral Social Service Liaison Referral for Franklyn ign hypertension Referring Physician: Adela Umana, Internal Medicine, Encounter Date: 07/18/2023 Social Service Liaison Referral for Franklyn ign hypertension Referring Physician: Adela Umana, Internal Medicine, Encounter Date: 10/19/2023 Social Service Liaison Referral for Franklyn ign hypertension Referring Physician: Adela Umana, Internal Medicine, Encounter Date: 09/09/2024 Results Created Date Observation Date Name Description Value Unit Range Abnormal Flag Note LastModifiedBy Organization Detail LastModifiedTime 07/28/2007/30/2023 COMPR EHENS JOANNE METAB OLIC PANEL glucose 92 mg/dL 65-99 normal Fasti ng refer ence inter esteban Not Available [address], [address], 07/30/2023 04:43:49 07/28/20 23 07/30/2023 COMPR EHENS JOANNE METAB OLIC PANEL urea nitrogen (BUN) 14 mg/dL 7-25 normal Not Available [address] [address] [place], [address], 07/30/2023 04:43:49 07/28/20 23 07/30/2023 COMPR EHENS JOANNE METAB OLIC PANEL creatinine 0.77 mg/dL 0.60-1 .00 normal Not Available [address], [address], 07/30/2023 04:43:49 07/28/20 23 07/30/2023 COMPR EHENS JOANNE METAB OLIC PANEL eGFR 80 mL/mi n/1.7 3m2 > or = 60 normal Not Available [address], [address], 07/30/2023 04:43:49 07/28/20 23 07/30/2023 COMPR EHENS JOANNE METAB OLIC PANEL BUN/creatini ne ratio SEE NOTE: (calc ) 6-22 Not Repor cuba: BUN and Creat inine are withi n refer ence range . Not Available [address], [address], 07/30/2023 04:43:49 07/28/20 23 07/30/2023 COMPR EHENS JOANNE METAB OLIC PANEL sodium 140 mmol/ L 135-14 6 normal Not Available [address], [address], 07/30/2023 04:43:49 07/28/20 23 07/30/2023 COMPR EHENS JOANNE METAB OLIC PANEL potassium 3.9 mmol/ L 3.5-5. 3 normal Not Available [address], [address], 07/30/2023 04:43:49 07/28/20 23 07/30/2023 COMPR EHENS JOANNE METAB OLIC PANEL chloride 106 mmol/ L 98-110 normal Not Available [address], [address], 07/30/2023 04:43:49 07/28/20 23 07/30/2023 COMPR EHENS JOANNE METAB OLIC PANEL carbon dioxide 25 mmol/ L 20-32 normal Not Available [address], [address], 07/30/2023 04:43:49 07/28/20 23 07/30/2023 COMPR EHENS JOANNE METAB OLIC PANEL calcium 9.1 mg/dL 8.6-10 .4 normal Not Available [address], [address], 07/30/2023 04:43:49 07/28/20 23 07/30/2023 COMPR EHENS JOANNE METAB OLIC PANEL protein, total 6.6 g/dL 6.1-8. 1 normal Not Available [address] [address] [place], [address], 07/30/2023 04:43:49 07/28/20 23 07/30/2023 COMPR EHENS JOANNE METAB OLIC PANEL albumin 4.2 g/dL 3.6-5. 1 normal Not Available [address], [address], 07/30/2023 04:43:49 07/28/2007/30/2023 COMPR EHENS JOANNE METAB OLIC PANEL globulin 2.4 g/dL_ (calc ) 1.9-3. 7 normal Not Available [address], [address], 07/30/2023 04:43:49 07/28/2007/30/2023 COMPR EHENS JOANNE METAB OLIC PANEL albumin/glob ulin ratio 1.8 (calc ) 1.0-2. 5 normal Not Available [address], [address], 07/30/2023 04:43:49 07/28/2007/30/2023 COMPR EHENS JOANNE METAB OLIC PANEL bilirubin, total 0.6 mg/dL 0.2-1. 2 normal Not Available [address] [address] [place], [address], 07/30/2023 04:43:49 07/28/20 23 07/30/2023 COMPR EHENS JOANNE METAB OLIC PANEL alkaline phosphatase 55 U/L 37-153 normal Not Available [address] [address] [place], [address], 07/30/2023 04:43:49 07/28/20 23 07/30/2023 COMPR EHENS JOANNE METAB OLIC PANEL AST 15 U/L 10-35 normal Not Available [address], [address], 07/30/2023 04:43:49 07/28/20 23 07/30/2023 COMPR EHENS JOANNE METAB OLIC PANEL ALT 15 U/L 6-29 normal Not Available [address], [address], 07/30/2023 04:43:49 07/28/20 23 07/30/2023 CBC (INCL UDES DIFF/ PLT) white blood cell count 6.2 thous and/u L 3.8-10 .8 normal Not Available [address], [address], 07/30/2023 04:43:50 07/28/20 23 07/30/2023 CBC (INCL UDES DIFF/ PLT) red blood cell count 4.32 constantino on/uL 3.80-5 .10 normal Not Available [address], [address], 07/30/2023 04:43:50 07/28/20 23 07/30/2023 CBC (INCL UDES DIFF/ PLT) hemoglobin 13.8 g/dL 11.7-1 5.5 normal Not Available [address], [address], 07/30/2023 04:43:50 07/28/20 23 07/30/2023 CBC (INCL UDES DIFF/ PLT) hematocrit 41.2 % 35.0-4 5.0 normal Not Available [address], [address], 07/30/2023 04:43:50 07/28/20 23 07/30/2023 CBC (INCL UDES DIFF/ PLT) MCV 95.4 fL 80.0-1 00.0 normal Not Available [address] [place], [address], 07/30/2023 04:43:50 07/28/20 23 07/30/2023 CBC (INCL UDES DIFF/ PLT) MCH 31.9 pg 27.0-3 3.0 normal Not Available [address], [address], 07/30/2023 04:43:50 07/28/20 23 07/30/2023 CBC (INCL UDES DIFF/ PLT) MCHC 33.5 g/dL 32.0-3 6.0 normal Not Available [address], [address], 07/30/2023 04:43:50 07/28/20 23 07/30/2023 CBC (INCL UDES DIFF/ PLT) RDW 11.8 % 11.0-1 5.0 normal Not Available [address], [address], 07/30/2023 04:43:50 07/28/20 23 07/30/2023 CBC (INCL UDES DIFF/ PLT) platelet count 191 thous and/u L 140-40 0 normal Not Available [address], [address], 07/30/2023 04:43:50 07/28/20 23 07/30/2023 CBC (INCL UDES DIFF/ PLT) MPV 10.9 fL 7.5-12 .5 normal Not Available [address], [address], 07/30/2023 04:43:50 07/28/20 23 07/30/2023 CBC (INCL UDES DIFF/ PLT) absolute neutrophils 4018 cells /uL 1500-7 800 normal Not Available [address], [address], 07/30/2023 04:43:50 07/28/20 23 07/30/2023 CBC (INCL UDES DIFF/ PLT) absolute lymphocytes 1711 cells /uL 850-39 00 normal Not Available [address], [address], 07/30/2023 04:43:50 07/28/20 23 07/30/2023 CBC (INCL UDES DIFF/ PLT) absolute monocytes 360 cells /uL 200-95 0 normal Not Available [address] [place], [address], 07/30/2023 04:43:50 07/28/20 23 07/30/2023 CBC (INCL UDES DIFF/ PLT) absolute eosinophils 81 cells /uL 15-500 normal Not Available [address], [address], 07/30/2023 04:43:50 07/28/20 23 07/30/2023 CBC (INCL UDES DIFF/ PLT) absolute basophils 31 cells /uL 0-200 normal Not Available [address], [address], 07/30/2023 04:43:50 07/28/20 23 07/30/2023 CBC (INCL UDES DIFF/ PLT) neutrophils 64.8 % normal Not Available [address], [address], 07/30/2023 04:43:50 07/28/20 23 07/30/2023 CBC (INCL UDES DIFF/ PLT) lymphocytes 27.6 % normal Not Available [address], [address], 07/30/2023 04:43:50 07/28/20 23 07/30/2023 CBC (INCL UDES DIFF/ PLT) monocytes 5.8 % normal Not Available [address] [place], [address], 07/30/2023 04:43:50 07/28/20 23 07/30/2023 CBC (INCL UDES DIFF/ PLT) eosinophils 1.3 % normal Not Available [address], [address], 07/30/2023 04:43:50 07/28/20 23 07/30/2023 CBC (INCL UDES DIFF/ PLT) basophils 0.5 % normal Not Available [address], [address], 07/30/2023 04:43:50 11/09/19 24 11/10/2023 LIPID PANEL WITH REFLE X TO DIREC T LDL cholesterol, total 139 mg/dL <200 normal Not Available [address], [address], 11/10/2023 03:23:57 11/09/19 24 11/10/2023 LIPID PANEL WITH REFLE X TO DIREC T LDL HDL cholesterol 52 mg/dL > or = 50 normal Not Available [address], [address], 11/10/2023 03:23:57 11/09/19 24 11/10/2023 LIPID PANEL WITH REFLE X TO DIREC T LDL triglyceride s 87 mg/dL <150 normal Not Available [address], [address], 11/10/2023 03:23:57 11/09/19 24 11/10/2023 LIPID PANEL WITH REFLE X TO DIREC T LDL LDL-choleste rol 70 mg/dL _(devon c) normal Refer ence range : <100 Everardo able range <100 mg/dL for prima ry preve ntion ; <70 mg/dL for patie nts with CHD or diabe tic patie nts with > or = 2 CHD risk facto rs. LDL-C is now calcu lated using the Kailey n-Hop kins jose guadalupe guerrero n, which is a valid ated novel metho d provi ding juli r accur acy than the Fried reynaldo equat ion in the estim ation of LDL-C . Kailey n SS et al. SUZANNE. 2013; 310(1 9): 2061- 2068 (http ://ed ucati on.Qu gingerNeeta dylanSangamo BioSciencess. com/f aq/FA Q164) Not Available [address], [address], 11/10/2023 03:23:57 11/09/19 24 11/10/2023 LIPID PANEL WITH REFLE X TO DIREC T LDL chol/HDLC ratio 2.7 (calc ) <5.0 normal Not Available [address], [address], 11/10/2023 03:23:57 11/09/19 24 11/10/2023 LIPID PANEL WITH REFLE X TO DIREC T LDL non HDL cholesterol 87 mg/dL _(devon c) <130 normal For patie nts with diabe bear plus 1 major ASCVD risk facto r, treat ing to a non-H DL-C goal of <100 mg/dL (LDL- C of <70 mg/dL ) is amita jurado n. Not Available [address], [address], 11/10/2023 03:23:57 11/09/1911/10/2023 TSH+F REE T4 TSH 0.20 mIU/L 0.40-4 .50 low Not Available [facility] [address], [address], 11/10/2023 03:24:02 11/09/19 24 11/10/2023 TSH+F REE T4 T4, free 1.5 NG/dL 0.8-1. 8 normal Not Available [facility] [address] [address] [place], [address], 11/10/2023 03:24:02 03/01/11/10/2023 MAGNE SIUM magnesium 2.1 mg/dL 1.5-2. 5 normal Not Available [address], [address], 11/10/2023 03:24:02 11/09/19 24 11/10/2023 COMPR EHENS JOANNE METAB OLIC PANEL glucose 89 mg/dL 65-99 normal Fasti ng refer ence inter esteban Not Available [address], [address], 11/10/2023 03:24:04 11/09/19 24 11/10/2023 COMPR EHENS JOANNE METAB OLIC PANEL urea nitrogen (BUN) 11 mg/dL 7-25 normal Not Available [address], [address], 11/10/2023 03:24:04 11/09/19 24 11/10/2023 COMPR EHENS JOANNE METAB OLIC PANEL creatinine 0.84 mg/dL 0.60-1 .00 normal Not Available [address], [address], 11/10/2023 03:24:04 11/09/19 24 11/10/2023 COMPR EHENS JOANNE METAB OLIC PANEL eGFR 72 mL/mi n/1.7 3m2 > or = 60 normal Not Available [address], [address], 11/10/2023 03:24:04 11/09/19 24 11/10/2023 COMPR EHENS JOANNE METAB OLIC PANEL BUN/creatini ne ratio SEE NOTE: (calc ) 6-22 Not Repor cuba: BUN and Creat inine are withi n refer ence range . Not Available [address], [address], 11/10/2023 03:24:04 11/09/19 24 11/10/2023 COMPR EHENS JOANNE METAB OLIC PANEL sodium 140 mmol/ L 135-14 6 normal Not Available [address], [address], 11/10/2023 03:24:04 11/09/19 24 11/10/2023 COMPR EHENS JOANNE METAB OLIC PANEL potassium 4.2 mmol/ L 3.5-5. 3 normal Not Available [address], [address], 11/10/2023 03:24:04 11/09/19 24 11/10/2023 COMPR EHENS JOANNE METAB OLIC PANEL chloride 104 mmol/ L 98-110 normal Not Available [address], [address], 11/10/2023 03:24:04 11/09/19 24 11/10/2023 COMPR EHENS JOANNE METAB OLIC PANEL carbon dioxide 29 mmol/ L 20-32 normal Not Available [address], [address], 11/10/2023 03:24:04 11/09/19 24 11/10/2023 COMPR EHENS JOANNE METAB OLIC PANEL calcium 9.2 mg/dL 8.6-10 .4 normal Not Available [address], [address], 11/10/2023 03:24:04 11/09/19 24 11/10/2023 COMPR EHENS JOANNE METAB OLIC PANEL protein, total 6.5 g/dL 6.1-8. 1 normal Not Available [address], [address], 11/10/2023 03:24:04 11/09/19 24 11/10/2023 COMPR EHENS JOANNE METAB OLIC PANEL albumin 4.3 g/dL 3.6-5. 1 normal Not Available [address], [address], 11/10/2023 03:24:04 11/09/19 24 11/10/2023 COMPR EHENS JOANNE METAB OLIC PANEL globulin 2.2 g/dL_ (calc ) 1.9-3. 7 normal Not Available [address], [address], 11/10/2023 03:24:04 11/09/19 24 11/10/2023 COMPR EHENS JOANNE METAB OLIC PANEL albumin/glob ulin ratio 2.0 (calc ) 1.0-2. 5 normal Not Available [address], [address], 11/10/2023 03:24:04 11/09/19 24 11/10/2023 COMPR EHENS JOANNE METAB OLIC PANEL bilirubin, total 0.9 mg/dL 0.2-1. 2 normal Not Available [address], [address], 11/10/2023 03:24:04 11/09/19 24 11/10/2023 COMPR EHENS JOANNE METAB OLIC PANEL alkaline phosphatase 55 U/L 37-153 normal Not Available [address], [address], 11/10/2023 03:24:04 11/09/19 24 11/10/2023 COMPR EHENS JOANNE METAB OLIC PANEL AST 17 U/L 10-35 normal Not Available [address], [address], 11/10/2023 03:24:04 11/09/19 24 11/10/2023 COMPR EHENS JOANNE METAB OLIC PANEL ALT 14 U/L 6-29 normal Not Available [address], [address], 11/10/2023 03:24:04 11/09/19 24 11/10/2023 CBC (INCL UDES DIFF/ PLT) white blood cell count 5.3 thous and/u L 3.8-10 .8 normal Not Available [address], [address], 11/10/2023 03:24:05 11/09/19 24 11/10/2023 CBC (INCL UDES DIFF/ PLT) red blood cell count 4.21 constantino on/uL 3.80-5 .10 normal Not Available [address], [address], 11/10/2023 03:24:05 11/09/19 24 11/10/2023 CBC (INCL UDES DIFF/ PLT) hemoglobin 13.4 g/dL 11.7-1 5.5 normal Not Available [address], [address], 11/10/2023 03:24:05 11/09/19 24 11/10/2023 CBC (INCL UDES DIFF/ PLT) hematocrit 39.8 % 35.0-4 5.0 normal Not Available [address], [address], 11/10/2023 03:24:05 11/09/19 24 11/10/2023 CBC (INCL UDES DIFF/ PLT) MCV 94.5 fL 80.0-1 00.0 normal Not Available [address], [address], 11/10/2023 03:24:05 11/09/19 24 11/10/2023 CBC (INCL UDES DIFF/ PLT) MCH 31.8 pg 27.0-3 3.0 normal Not Available [employer] [address], [address], 11/10/2023 03:24:05 11/09/19 24 11/10/2023 CBC (INCL UDES DIFF/ PLT) MCHC 33.7 g/dL 32.0-3 6.0 normal Not Available [facility] [address], [address], 11/10/2023 03:24:05 11/09/19 24 11/10/2023 CBC (INCL UDES DIFF/ PLT) RDW 12.4 % 11.0-1 5.0 normal Not Available [address], [address], 11/10/2023 03:24:05 11/09/19 24 11/10/2023 CBC (INCL UDES DIFF/ PLT) platelet count 205 thous and/u L 140-40 0 normal Not Available [address], [address], 11/10/2023 03:24:05 11/09/19 24 11/10/2023 CBC (INCL UDES DIFF/ PLT) MPV 10.3 fL 7.5-12 .5 normal Not Available [address], [address], 11/10/2023 03:24:05 11/09/19 24 11/10/2023 CBC (INCL UDES DIFF/ PLT) absolute neutrophils 3599 cells /uL 1500-7 800 normal Not Available [address], [address], 11/10/2023 03:24:05 11/09/19 24 11/10/2023 CBC (INCL UDES DIFF/ PLT) absolute lymphocytes 1293 cells /uL 850-39 00 normal Not Available [address], [address], 11/10/2023 03:24:05 11/09/19 24 11/10/2023 CBC (INCL UDES DIFF/ PLT) absolute monocytes 297 cells /uL 200-95 0 normal Not Available [address], [address], 11/10/2023 03:24:05 11/09/19 24 11/10/2023 CBC (INCL UDES DIFF/ PLT) absolute eosinophils 80 cells /uL 15-500 normal Not Available [address], [address], 11/10/2023 03:24:05 11/09/19 24 11/10/2023 CBC (INCL UDES DIFF/ PLT) absolute basophils 32 cells /uL 0-200 normal Not Available [address], [address], 11/10/2023 03:24:05 11/09/19 24 11/10/2023 CBC (INCL UDES DIFF/ PLT) neutrophils 67.9 % normal Not Available [address], [address], 11/10/2023 03:24:05 11/09/19 24 11/10/2023 CBC (INCL UDES DIFF/ PLT) lymphocytes 24.4 % normal Not Available [address], [address], 11/10/2023 03:24:05 11/09/19 24 11/10/2023 CBC (INCL UDES DIFF/ PLT) monocytes 5.6 % normal Not Available [address], [address], 11/10/2023 03:24:05 11/09/19 24 11/10/2023 CBC (INCL UDES DIFF/ PLT) eosinophils 1.5 % normal Not Available [facility] [address], [address], 11/10/2023 03:24:05 11/09/19 24 11/10/2023 CBC (INCL UDES DIFF/ PLT) basophils 0.6 % normal Not Available [address], [address], 11/10/2023 03:24:05 11/09/19 24 11/10/2023 VITAM IN D,25- OH,TO RALF,I A vitamin D,25-oh,tota l,ia 98 NG/mL 30-100 normal Vitam in D Statu s 25-OH Vitam in D: Defic iency : <20 ng/mL Insuf ficie ncy: 20 - 29 ng/mL Optim al: > or = 30 ng/mL For 25-OH Vitam in D testi ng on patie nts on D2-andre pplem entat ion and patie nts for whom quant itati on of D2 and D3 fract ions is requi red, the [facility](TM ) 25-OH VIT D, (D2,D 3), LC/MS /MS is recom enrique d: order code 06522 (lefty ents >2yrs ). See Note 1 Note 1 For addit ional infor carlos a deluca refer to http: //[facility] david Al stDia gnost ics.c om/fa q/FAQ 199 (This link is being provi ded for infor van cox/ mauri majano purpo ses only. ) Not Available [facility] [address] [address] [place], [address], 11/10/2023 03:24:06 01/10/20 24 01/11/2024 TSH+F REE T4 TSH 1.29 mIU/L 0.40-4 .50 normal Not Available [facility] [address] [address] [place], [address], 01/11/2024 05:43:55 01/10/20 24 01/11/2024 TSH+F REE T4 T4, free 1.5 NG/dL 0.8-1. 8 normal Not Available [facility] [address] [address] [place], [address], 01/11/2024 05:43:55 01/18/20 24 01/18/2024 urina lysis , dipst ick Leukocytes Negati ve Not Available [employer] [facility], [facility] [address], [place], [address], 01/18/2024 13:44:20 01/18/20 24 01/18/2024 urina lysis , dipst ick Nitrite negati ve Not Available [facility], [facility] [address], [place], [address], 01/18/2024 13:44:20 01/18/20 24 01/18/2024 urina lysis , dipst ick Urobilinogen .2 Not Available [facility], [facility] [address], [place], [address], 01/18/2024 13:44:20 01/18/20 24 01/18/2024 urina lysis , dipst ick Protein Trace Not Available [facility], [facility] [address], [place], [address], 01/18/2024 13:44:20 01/18/20 24 01/18/2024 urina lysis , dipst ick pH 7.5 Not Available [facility], [facility] [address], [place], [address], 01/18/2024 13:44:20 01/18/20 24 01/18/2024 urina lysis , dipst ick Blood Negati ve Not Available [facility], [facility] [address], [place], [address], 01/18/2024 13:44:20 01/18/20 24 01/18/2024 urina lysis , dipst ick Specific [place] 1.005 Not Available [facility] [address], [place], [address], 01/18/2024 13:44:20 01/18/20 24 01/18/2024 urina lysis , dipst ick Ketone Negati ve Not Available [facility], [facility] [address], [place], [address], 01/18/2024 13:44:20 01/18/20 24 01/18/2024 urina lysis , dipst ick Bilirubin Negati ve Not Available [facility], [facility] [address] [facility] [address], [place], [address], 01/18/2024 13:44:20 01/18/20 24 01/18/2024 urina lysis , dipst ick Glucose Negati ve Not Available [facility], [facility] [address] [facility] [address], [place], [address], 01/18/2024 13:44:20 01/18/20 24 01/18/2024 urina lysis , dipst ick Appearance Clear Not Available [facility] [address] [facility] [address], [place], [address], 01/18/2024 13:44:20 01/18/20 24 01/18/2024 urina lysis , dipst ick Color Pale Yellow Not Available [facility], [facility] [address] [facility] [address], [place], [address], 01/18/2024 13:44:20 06/05/20 24 06/05/2024 urina lysis , dipst ick Leukocytes Negati ve Not Available [facility], [facility] [address] [facility] [address], [place], [address], 06/05/2024 10:22:52 06/05/2006/05/2024 urina lysis , dipst ick Nitrite negati ve Not Available [facility], [facility] [address] [facility] [address], [place], [address], 06/05/2024 10:22:52 06/05/2006/05/2024 urina lysis , dipst ick Urobilinogen .2 Not Available [facility], [facility] [address] [facility] [address], [place], [address], 06/05/2024 10:22:52 06/05/20 24 06/05/2024 urina lysis , dipst ick Protein Trace Not Available [facility], [facility] [address], [place], [address], 06/05/2024 10:22:52 06/05/20 24 06/05/2024 urina lysis , dipst ick pH 7.5 Not Available [facility] [address], [place], [address], 06/05/2024 10:22:52 06/05/20 24 06/05/2024 urina lysis , dipst ick Blood Negati ve Not Available [facility] [address], [place], [address], 06/05/2024 10:22:52 06/05/20 24 06/05/2024 urina lysis , dipst ick Specific [place] 1.010 Not Available [facility] [address], [place], [address], 06/05/2024 10:22:52 06/05/20 24 06/05/2024 urina lysis , dipst ick Ketone Negati ve Not Available [facility] [address], [place], [address], 06/05/2024 10:22:52 06/05/20 24 06/05/2024 urina lysis , dipst ick Bilirubin Negati ve Not Available [facility] [address], [place], [address], 06/05/2024 10:22:52 06/05/20 24 06/05/2024 urina lysis , dipst ick Glucose Negati ve Not Available [facility] [address], [place], [address], 06/05/2024 10:22:52 09/2606/05/2024 urina lysis , dipst ick Appearance Clear Not Available [facility], [facility] [address], [place], [address], 06/05/2024 10:22:52 06/05/20 24 06/05/2024 urina lysis , dipst ick Color Yellow Not Available [facility], [facility] [address], [place], [address], 06/05/2024 10:22:52 06/18/20 24 06/19/2024 LIPID PANEL WITH REFLE X TO DIREC T LDL cholesterol, total 143 mg/dL <200 normal Not Available [address], [address], 06/19/2024 04:37:33 06/18/20 24 06/19/2024 LIPID PANEL WITH REFLE X TO DIREC T LDL HDL cholesterol 43 mg/dL > or = 50 low Not Available [address] [place], [address], 06/19/2024 04:37:33 06/18/20 24 06/19/2024 LIPID PANEL WITH REFLE X TO DIREC T LDL triglyceride s 79 mg/dL <150 normal Not Available [address] [address] [place], [address], 06/19/2024 04:37:33 06/18/2006/19/2024 LIPID PANEL WITH REFLE X TO DIREC T LDL LDL-choleste rol 83 mg/dL _(devon c) normal Refer ence range : <100 Everardo able range <100 mg/dL for prima ry preve ntion ; <70 mg/dL for patie nts with CHD or diabe tic patie nts with > or = 2 CHD risk facto rs. LDL-C is now calcu lated using the Kailey n-Hop kins calcu latbrooke n, which is a valid ated novel metho d tadeoi marli bustos r accur acy than the Fried reynaldo equat ion in the estim ation of LDL-C . Kailey n SS et al. SUZANNE. 2013; 310(1 5): 2061- 2068 (http ://ed ucati on.Qu [employer]. com/f aq/FA Q164) Not Available [address], [address], 06/19/2024 04:37:33 06/18/20 24 06/19/2024 LIPID PANEL WITH REFLE X TO DIREC T LDL chol/HDLC ratio 3.3 (calc ) <5.0 normal Not Available [address], [address], 06/19/2024 04:37:33 06/18/20 24 06/19/2024 LIPID PANEL WITH REFLE X TO DIREC T LDL non HDL cholesterol 100 mg/dL _(devon c) <130 normal For patie nts with diabe bear plus 1 major ASCVD risk facto r, treat ing to a non-H DL-C goal of <100 mg/dL (LDL- C of <70 mg/dL ) is consi dered a thera pesheldon c optio n. Not Available [address], [address], 06/19/2024 04:37:33 06/18/20 24 06/19/2024 TSH+F REE T4 TSH 4.72 mIU/L 0.40-4 .50 high Not Available [address], [address], 06/19/2024 04:37:34 06/18/20 24 06/19/2024 TSH+F REE T4 T4, free 1.3 NG/dL 0.8-1. 8 normal Not Available [address], [address], 06/19/2024 04:37:34 06/18/20 24 06/19/2024 MAGNE SIUM magnesium 1.9 mg/dL 1.5-2. 5 normal Not Available [address], [address], 06/19/2024 04:37:35 06/18/20 24 06/19/2024 COMPR EHENS JOANNE METAB OLIC PANEL glucose 88 mg/dL 65-99 normal Fasti ng refer ence inter esteban Not Available [address], [address], 06/19/2024 04:37:36 06/18/20 24 06/19/2024 COMPR EHENS JOANNE METAB OLIC PANEL urea nitrogen (BUN) 24 mg/dL 7-25 normal Not Available [address], [address], 06/19/2024 04:37:36 06/18/20 24 06/19/2024 COMPR EHENS JOANNE METAB OLIC PANEL creatinine 0.94 mg/dL 0.60-1 .00 normal Not Available [address], [address], 06/19/2024 04:37:36 06/18/20 24 06/19/2024 COMPR EHENS JOANNE METAB OLIC PANEL eGFR 63 mL/mi n/1.7 3m2 > or = 60 normal Not Available [address], [address], 06/19/2024 04:37:36 06/18/20 24 06/19/2024 COMPR EHENS JOANNE METAB OLIC PANEL BUN/creatini ne ratio SEE NOTE: (calc ) 6-22 Not Repor cuba: BUN and Creat inine are withi n refer ence range . Not Available [address], [address], 06/19/2024 04:37:36 06/18/20 24 06/19/2024 COMPR EHENS JOANNE METAB OLIC PANEL sodium 139 mmol/ L 135-14 6 normal Not Available [address] [place], [address], 06/19/2024 04:37:36 06/18/20 24 06/19/2024 COMPR EHENS JOANNE METAB OLIC PANEL potassium 3.7 mmol/ L 3.5-5. 3 normal Not Available [address], [address], 06/19/2024 04:37:36 06/18/20 24 06/19/2024 COMPR EHENS JOANNE METAB OLIC PANEL chloride 107 mmol/ L 98-110 normal Not Available [address], [address], 06/19/2024 04:37:36 06/18/20 24 06/19/2024 COMPR EHENS JOANNE METAB OLIC PANEL carbon dioxide 27 mmol/ L 20-32 normal Not Available [address], [address], 06/19/2024 04:37:36 06/18/20 24 06/19/2024 COMPR EHENS JOANNE METAB OLIC PANEL calcium 8.6 mg/dL 8.6-10 .4 normal Not Available [address], [address], 06/19/2024 04:37:36 06/18/20 24 06/19/2024 COMPR EHENS JOANNE METAB OLIC PANEL protein, total 6.3 g/dL 6.1-8. 1 normal Not Available [address], [address], 06/19/2024 04:37:36 06/18/20 24 06/19/2024 COMPR EHENS JOANNE METAB OLIC PANEL albumin 3.8 g/dL 3.6-5. 1 normal Not Available [address], [address], 06/19/2024 04:37:36 06/18/20 24 06/19/2024 COMPR EHENS JOANNE METAB OLIC PANEL globulin 2.5 g/dL_ (calc ) 1.9-3. 7 normal Not Available [address], [address], 06/19/2024 04:37:36 06/18/20 24 06/19/2024 COMPR EHENS JOANNE METAB OLIC PANEL albumin/glob ulin ratio 1.5 (calc ) 1.0-2. 5 normal Not Available [address], [address], 06/19/2024 04:37:36 06/18/2006/19/2024 COMPR EHENS JOANNE METAB OLIC PANEL bilirubin, total 0.6 mg/dL 0.2-1. 2 normal Not Available [address], [address], 06/19/2024 04:37:36 06/18/20 24 06/19/2024 COMPR EHENS JOANNE METAB OLIC PANEL alkaline phosphatase 55 U/L 37-153 normal Not Available [address], [address], 06/19/2024 04:37:36 06/18/20 24 06/19/2024 COMPR EHENS JOANNE METAB OLIC PANEL AST 15 U/L 10-35 normal Not Available [address], [address], 06/19/2024 04:37:36 06/18/20 24 06/19/2024 COMPR EHENS JOANNE METAB OLIC PANEL ALT 12 U/L 6-29 normal Not Available [address], [address], 06/19/2024 04:37:36 06/18/20 24 06/19/2024 CBC (INCL UDES DIFF/ PLT) white blood cell count 5.7 thous and/u L 3.8-10 .8 normal Not Available [facility] [address], [address], 06/19/2024 04:37:37 06/18/20 24 06/19/2024 CBC (INCL UDES DIFF/ PLT) red blood cell count 4.06 constantino on/uL 3.80-5 .10 normal Not Available [address], [address], 06/19/2024 04:37:37 06/18/20 24 06/19/2024 CBC (INCL UDES DIFF/ PLT) hemoglobin 12.9 g/dL 11.7-1 5.5 normal Not Available [address], [address], 06/19/2024 04:37:37 06/18/20 24 06/19/2024 CBC (INCL UDES DIFF/ PLT) hematocrit 39.9 % 35.0-4 5.0 normal Not Available [address], [address], 06/19/2024 04:37:37 06/18/20 24 06/19/2024 CBC (INCL UDES DIFF/ PLT) MCV 98.3 fL 80.0-1 00.0 normal Not Available [address], [address], 06/19/2024 04:37:37 06/18/2006/19/2024 CBC (INCL UDES DIFF/ PLT) MCH 31.8 pg 27.0-3 3.0 normal Not Available [address], [address], 06/19/2024 04:37:37 06/18/20 24 06/19/2024 CBC (INCL UDES DIFF/ PLT) MCHC 32.3 g/dL 32.0-3 6.0 normal For adult s, a sligh t decre ase in the calcu lated MCHC value (in the range of 30 to 32 g/dL) is most likel y not clini hussein signi diya t; leandro er, it shoul d be inter prete d with cauti on in corre latio n with other red cell desi eters and the patie nt's clini devon condi tion. Not Available [facility] [address], [address], 06/19/2024 04:37:37 06/18/20 24 06/19/2024 CBC (INCL UDES DIFF/ PLT) RDW 11.9 % 11.0-1 5.0 normal Not Available [facility] [address], [address], 06/19/2024 04:37:37 06/18/2006/19/2024 CBC (INCL UDES DIFF/ PLT) platelet count 197 thous and/u L 140-40 0 normal Not Available [facility] [address], [address], 06/19/2024 04:37:37 06/18/20 24 06/19/2024 CBC (INCL UDES DIFF/ PLT) MPV 10.0 fL 7.5-12 .5 normal Not Available [address], [address], 06/19/2024 04:37:37 06/18/20 24 06/19/2024 CBC (INCL UDES DIFF/ PLT) absolute neutrophils 3665 cells /uL 1500-7 800 normal Not Available [facility] [address], [address], 06/19/2024 04:37:37 06/18/20 24 06/19/2024 CBC (INCL UDES DIFF/ PLT) absolute lymphocytes 1636 cells /uL 850-39 00 normal Not Available [facility] [address], [address], 06/19/2024 04:37:37 06/18/20 24 06/19/2024 CBC (INCL UDES DIFF/ PLT) absolute monocytes 239 cells /uL 200-95 0 normal Not Available [address], [address], 06/19/2024 04:37:37 06/18/20 24 06/19/2024 CBC (INCL UDES DIFF/ PLT) absolute eosinophils 131 cells /uL 15-500 normal Not Available [facility] [address], [address], 06/19/2024 04:37:37 06/18/20 24 06/19/2024 CBC (INCL UDES DIFF/ PLT) absolute basophils 29 cells /uL 0-200 normal Not Available [facility] [address], [address], 06/19/2024 04:37:37 06/18/20 24 06/19/2024 CBC (INCL UDES DIFF/ PLT) neutrophils 64.3 % normal Not Available [facility] [address], [address], 06/19/2024 04:37:37 06/18/20 24 06/19/2024 CBC (INCL UDES DIFF/ PLT) lymphocytes 28.7 % normal Not Available [address], [address], 06/19/2024 04:37:37 06/18/20 24 06/19/2024 CBC (INCL UDES DIFF/ PLT) monocytes 4.2 % normal Not Available [facility] [address], [address], 06/19/2024 04:37:37 06/18/20 24 06/19/2024 CBC (INCL UDES DIFF/ PLT) eosinophils 2.3 % normal Not Available [address], [address], 06/19/2024 04:37:37 06/18/20 24 06/19/2024 CBC (INCL UDES DIFF/ PLT) basophils 0.5 % normal Not Available [facility] [address] [address] [place], [address], 06/19/2024 04:37:37 06/18/20 24 06/19/2024 HEMOG LOBIN A1C hemoglobin A1C 5.2 %_of_ total _HGB <5.7 normal For the purpo se of emi estrella for the prese nce of diabe bear: <5.7% Consi stent with the absen ce of diabe bear 5.7-6 .4% Consi stent with incre ased risk for diabe bear (pred iabet es) > or =6.5% Consi stent with diabe bear This assay resul t is consi stent with a decre ased risk of diabe bear. Curre ntly, no conse nsus exist s zhang calles use of hemog lobin A1c for diagn osis of diabe bear in child michael. Accor ding to Ameri can Diabe bear Assoc iatio n (ADA) guide lines , hemog lobin A1c <7.0% repre sents optim al contr ol in non-p regna nt diabe tic patie nts. Diffe rent metri cs may apply to speci fic patie nt popul ation s. [facility] of Medic al Care in Diabe bear(A DA). Not Available [facility] [address] [address] [place], [address], 06/19/2024 04:37:39 08/27/20 24 08/28/2024 TSH+F REE T4 TSH 1.17 mIU/L 0.40-4 .50 normal Not Available [facility] [address] [address] [place], [address], 08/28/2024 03:46:22 08/27/20 24 08/28/2024 TSH+F REE T4 T4, free 1.7 NG/dL 0.8-1. 8 normal Not Available [facility] [address] [address] [place], [address], 08/28/2024 03:46:22 09/16/19 25 09/16/2024 urina lysis , dipst ick Leukocytes Negati ve Not Available [facility], [facility] [address], [place], [address], 09/09/2024 10:20:42 09/16/19 25 09/16/2024 urina lysis , dipst ick Nitrite negati ve Not Available [facility], [facility] [address], [place], [address], 09/09/2024 10:20:42 09/16/19 25 09/16/2024 urina lysis , dipst ick Urobilinogen .2 Not Available [facility] [address], [place], [address], 09/09/2024 10:20:42 09/16/19 25 09/16/2024 urina lysis , dipst ick Protein Trace Not Available [facility] [address], [place], [address], 09/09/2024 10:20:42 09/16/19 25 09/16/2024 urina lysis , dipst ick pH 7.0 Not Available [facility] [address], [place], [address], 09/09/2024 10:20:42 09/16/19 25 09/16/2024 urina lysis , dipst ick Blood Modera te Not Available [facility] [address], [place], [address], 09/09/2024 10:20:42 09/16/19 25 09/16/2024 urina lysis , dipst ick Specific [place] 1.005 Not Available [facility] [address], [place], [address], 09/09/2024 10:20:42 09/16/19 25 09/16/2024 urina lysis , dipst ick Ketone Negati ve Not Available [facility], [facility] [address] [facility] [address], [place], [address], 09/09/2024 10:20:42 09/16/19 25 09/16/2024 urina lysis , dipst ick Bilirubin Negati ve Not Available [facility] [address] [facility] [address], [place], [address], 09/09/2024 10:20:42 09/16/19 25 09/16/2024 urina lysis , dipst ick Glucose Negati ve Not Available [facility], [facility] [address] [facility] [address], [place], [address], 09/09/2024 10:20:42 09/16/19 25 09/16/2024 urina lysis , dipst ick Appearance Clear Not Available [facility] [address] [facility] [address], [place], [address], 09/09/2024 10:20:42 09/16/19 25 09/16/2024 urina lysis , dipst ick Color Pale Yellow Not Available [facility] [address] [facility] [address], [place], [address], 09/09/2024 10:20:42 12/12/19 24 12/12/2023 MAMMO , scree delores, digit al, bilat eral No observ ation record ed. [facility] [address], [place], [address], 06/20/2024 00:49:12 12/14/19 24 12/12/2023 MAMMO , scree delores, digit al, bilat eral No observ ation record ed. [facility] [address], [place], [address], 06/20/2024 00:49:12 12/14/19 24 12/12/2023 MAMMO , scree delores, digit al, bilat eral No observ ation record ed. [facility] [address], [place], [address], 06/20/2024 00:49:13 03/18/20 24 03/17/2024 MAMMO , diagn ostic , digit al, unila teral No observ ation record ed. [address], [place], [address], 06/05/2024 10:20:04 05/15/20 24 2024 US, echo ardio gram No observ ation record ed. [facility] Not Available 2023 10:18:09 06/07/20 24 05/02/2024 US, echoc ardio gram No observ ation record ed. [address], [place], [address], 09/09/2024 10:17:48 06/24/20 24 06/23/2024 US, thyro id No observ ation record ed. [address], [place], [address], 09/09/2024 10:17:48 09/09/20 24 09/02/2024 elect jennifer thomas am No observ ation record ed. [facility] [address], [place], [address], 09/10/2024 17:44:01 Result Notes None recorded. Problems Name Problem SNOMED Code Status Onset Date Resolution Date Notes Provider Name and Address Organization Details Recorded Time Menopaus e Active 2023 Adela Umana MD [address], [place], [address] , [place] [facility] 10:17:28 Hashimot o thyroidi tis 05631205 Active 2023 Adela Umana MD [address], [place], [address] , [place] [facility] 4 21:09:59 Divertic ulitis 698773877 Completed 08/15/2016 Adela Umana MD [address], [place], [address] , [place] [facility] 6 12:18:07 Benign hyperten eric 61530291 Active Not Available [facility] 2 07:14:14 Hyperlip idemia 05569666 Active Not Available [facility] 2 07:14:14 Hypothyr oidism 31947575 Active Not Available [facility] 2 07:14:14 Low back pain 452336052 Active Not Available [facility] 2 07:14:13 Menopaus e present 481421716 Active Not Available [facility] 2 07:14:14 Mitral valve regurgit ation 22333623 Active Not Available [facility] 2 07:14:13 Non-toxi c multinod ular goiter 39630557 Active Not Available [facility] 2 07:14:13 Osteoart hritis 705837095 Active 2016 Not Available [facility] 2 07:14:13 Left ventricu lar hypertro phy 50455934 Active 2017 Not Available [facility] 2 07:14:13 Body mass index 30+ - obesity 948730321 Active 2018 Not Available [facility] 2 07:14:14 Vitamin D deficien cy 96852081 Active 2018 Not Available [facility] 2 07:14:13 Osteopen ia 238983355 Active 2019 Not Available [facility] 2 07:14:14 Thyroid function tests abnormal 290138336 Active 2019 Not Available [facility] 2 07:14:14 Gastroes ophageal reflux disease without esophagi tis 850575400 Active 2019 Not Available [facility] 2 07:14:14 Microsco pic hematuri a 007587246 Active 2021 Not Available [facility] 2 07:14:13 Allergic rhinitis caused by pollen 38992852 Active 2021 Not Available [facility] 2 07:14:14 Atrial fibrilla tion 60793338 Active 2022 Adela Umana MD [address], [place], [address] , [facility] 3 10:55:25 Coronary arterios clerosis 01924908 Active 2022 on cardiac cath 06/2023 per pt Adela Umana MD [address], [place], [address] , [facility] 3 10:50:20 Long-ter m drug therapy Active 2023 Adela Umana MD [address], [place], [address] , [facility] 4 11:13:44 Problem Notes None recorded. Procedures Surgical History Date Name Laterality Status Provider Name and Address Organization Details Recorded Time 05/11/20 21 Date of Last Mammogram completed Praveena Marie [facility] 11/10/2021 11:27:51 06/09/20 20 Colonoscopy completed Adela Umana MD [address], [place], [address], [facility] 06/09/2020 19:34:41 02/09/20 20 Date of Last Pap Smear completed SEAN YOUNG [facility] 04/08/2020 09:36:11 09/08/20 15 Date of Last Colonoscopy completed Gayatriprudencio Kennedy [facility] 02/12/2018 12:19:40 10/12/19 10 Colonoscopy completed Gayatri Kennedy [facility] 02/14/2016 09:02:47 Tonsillectomy completed Gayatriprudencio Kennedy [facility] 02/14/2016 09:02:52 Imaging Results Imaging Date Name Status LastModified by Organization Details LastModified Time 12/12/2023 MAMMO, screening, digital, bilateral completed [facility] [address], [place], [address], 06/20/2024 00:49:12 12/12/2023 MAMMO, screening, digital, bilateral completed [facility] [address], [place], [address], 06/20/2024 00:49:12 12/12/2023 MAMMO, screening, digital, bilateral completed [facility] [address], [place], [address], 06/20/2024 00:49:13 03/17/2024 MAMMO, diagnostic, digital, unilateral completed [address] [facility], [place], [address], 06/05/2024 10:20:04 2024 US, echocardiogram completed [facility] ation not available 06/05/2024 10:18:09 05/02/2024 US, echocardiogram completed [address] [facility], [place], [address], 09/09/2024 10:17:48 06/23/2024 [place], thyroid completed [address], [address], 09/09/2024 10:17:48 09/02/2024 electrocardiogram completed [facility] [address] [place] [address] [address], [place], [address], 09/10/2024 17:44:01 Procedure Notes None recorded. Medical Equipment None Reported. Allergies Allergen ID Allergen Name Allergen Category Reaction Reaction Severity Criticality Documentation Date Start Date Code Code System Note Provider Name and Address Organization Details Recorded Time 1883 Niaspan medicatio n Not available Not available Not available 02/14/2016 47033 6 RxNorm Gayatri Kennedy [facility] 6 09:02:10 1884 Pravachol medicatio n Not available Not available Not available 02/14/201677226 3 RxNorm Adela Umana MD [address] [facility] [address], [place], [address], [place] [facility] 7 12:53:05 1885 Substance with sulfonami de structure and antibacte rial mechanism of action (substanc e) medicatio n Not available Not available Not available 02/14/2016 93824 8003 SNOMED Gayatri Kennedy farooq [facility] 6 09:02:21 1886 Zocor medicatio n Not available Not available Not available 02/14/2016 54060 3 RxNorm Gayatri Kennedy faroo[employer] [facility] 6 09:02:25 Medications Name Sig Start Date Stop Date Status Note LastModified by Organization Details LastModified Time eq famotidine 20mg (otc) tab TAKE 1 TABLET BY MOUTH TWICE DAILY 06/09 completed Not Available Not Available Not Available amoxicillin 500 mg capsule 08/28 completed Not Available Not Available Not Available doxycycline hyclate 100 mg capsule TAKE 1 CAPSULE BY MOUTH ONCE DAILY WITH A FULL MEAL 03/18 completed Not Available Not Available Not Available cetirizine 10 mg tablet TAKE ONE TABLET BY MOUTH EVERY NIGHT AT BEDTIME active Not Available Not Available No t Available azithromyci n 250 mg tablet FOLLOW PACKAGE DIRECTION S 11/09 completed Not Available Not Available Not Available metoprolol succinate ER 50 mg tablet,exte nded release 24 hr TAKE 1 AND 1/2 TABLETS BY MOUTH EVERY DAY active Not Available Not Available No t Available Lotrisone 1 %-0.05 % topical cream APPLY TO THE AFFECTED AND SURROUNDI NG AREAS OF SKIN BY TOPICAL ROUTE 2 TIMES PER DAY IN THE MORNING AND EVENING FOR 2 WEEKS 07/03 completed Not Available Not Available Not Available alendronate 70 mg tablet TAKE 1 TABLET BY MOUTH 1 TIME A WEEK active Not Available Not Available No t Available doxycycline hyclate 50 mg capsule TAKE 1 CAPSULE BY MOUTH ONCE DAILY WITH FULL MEAL 07/30 completed Not Available Not Available Not Available clindamycin HCl 150 mg capsule 08/28 completed Not Available Not Available Not Available penicillin V potassium 500 mg tablet TAKE 1 TABLET BY MOUTH EVERY 8 HOURS UNTIL ALL TAKEN active Not Available Not Available No t Available aspirin 81 mg tablet,jerrod yed release Take 1 tablet every day by oral route. 2022 active Not Available Not Available Not Avai lable doxycycline monohydrate 100 mg tablet TAKE 1 TABLET BY MOUTH ONCE DAILY 04/16 completed Not Available Not Available Not Available triamcinolo ne acetonide 0.1 % topical cream APPLY TO THE AFFECTED AREA TWICE DAILY NEEDED FOR RASH active Not Available Not Available No t Available cefadroxil 500 mg capsule 10/27 completed Not Available Not Available Not Available levothyroxi ne 100 mcg tablet TAKE 1 TABLET BY MOUTH EVERY DAY IN THE MORNING active Not Available Not Available No t Available famotidine 20 mg tablet Take 1 tablet twice a day by oral route. active Not Available Not Available No t Available doxycycline monohydrate 100 mg capsule TAKE 1 CAPSULE BY MOUTH DAILY active Not Available Not Available No t Available cephalexin 500 mg capsule 08/15 completed Not Available Not Available Not Available pantoprazol e 40 mg tablet,jerrod yed release TAKE 1 TABLET BY MOUTH ONCE DAILY IN THE MORNING 04/08 completed Not Available Not Available Not Available erythromyci n 5 mg/gram (0.5 %) eye ointment 06/09 completed Not Available Not Available Not Available Synthroid 88 mcg tablet Take 1 tablet every day by oral route in the morning. 06/25 completed Not Available Not Available Not Available losartan 25 mg tablet TAKE 1 TABLET BY MOUTH EVERY DAY active Not Available Not Available No t Available gabapentin 300 mg capsule Take 1 capsule every day by oral route at bedtime. 06/23 completed Not Available Not Available Not Available etodolac 400 mg tablet TAKE ONE TABLET BY MOUTH TWICE DAILY WITH FOOD NEEDED 02/13 completed Not Available Not Available Not Available pravastatin 20 mg tablet TAKE 1 TABLET BY MOUTH EVERY DAY AT BEDTIME active Not Available Not Available No t Available furosemide 20 mg tablet TAKE 1 TABLET BY MOUTH EVERY MORNING NEEDED active Not Available Not Available No t Available azelastine 137 mcg (0.1 %) nasal spray 06/23 completed Not Available Not Available Not Available fluticasone propionate 50 mcg/actuati on nasal spray,suspe nsion SHAKE LIQUID AND USE 1 SPRAY IN EACH NOSTRIL EVERY DAY active Not Available Not Available No t Available clotrimazol e 1 % topical cream APPLY CREAM TOPICALLY TO AFFECTED AND SURROUNDI NG AREA TWICE DAILY IN THE MORNING AND IN THE EVENING 03/18 completed Not Available Not Available Not Available metronidazo le 0.75 % topical gel 04/16 completed Not Available Not Available Not Available amoxicillin 875 mg-potassiu m clavulanate 125 mg tablet 08/15 completed Not Available Not Available Not Available chlorhexidi ne gluconate 0.12 % mouthwash 08/28 completed Not Available Not Available Not Available diclofenac 1 % topical gel APPLY 2 GRAMS TO THE AFFECTED AREA(S) BY TOPICAL ROUTE 4 TIMES PER DAY 2022 active Not Available Not Available Not Avai lable azelastine 205.5 mcg (0.15 %) nasal spray 06/23 completed Not Available Not Available Not Available Zyrtec 10 mg capsule Take 1 capsule every day by oral route at bedtime. 2017 active Not Available Not Available Not Avai lable Tirosint 100 mcg capsule TAKE ONE CAPSULE BY MOUTH DAILY IN THE MORNING 04/16 completed Not Available Not Available Not Available Vitamin D3 125 mcg (5,000 unit) tablet Take 1 tablet every day by oral route. 2019 active Not Available Not Available Not Avai lable Dymista 137 mcg-50 mcg/spray nasal spray USE 1 SPRAY(S) IN EACH NOSTRIL TWICE DAILY 04/27 completed Not Available Not Available Not Available Eliquis 5 mg tablet Take 1 tablet twice a day by oral route. 2023 active Not Available Not Available Not Avai lable Fluzone High-Dose 2018- (PF) 180 mcg/0.5 mL intramuscul ar syringe PHARMACIS T ADMINISTE RED IMMUNIZAT ION ADMINISTE RED AT TIME OF DISPENSIN G 04/08 completed Not Available Not Available Not Available Fluzone High-Dose Quad (PF) 240 mcg/0.7 mL IM syringe PHARMACIS T ADMINISTE RED IMMUNIZAT ION ADMINISTE RED AT TIME OF DISPENSIN G 07/30 completed Not Available Not Available Not Available BinaxNOW COVID-19 Ag Self Test kit Use as Directed on the Package 04/16 completed Not Available Not Available Not Available Vitals Date Recorded Body height Provider Name an d Address Organization Details Last Updated DateTime 07/18/2023 162.56 cm Elijah Valero [facility] 07/18/2023 09:57:17 Date Recorded Body mass index (BMI) Body weight Body temperature Respiratory rate Heart rate Systolic blood pressure Diastolic blood pressure Provider Name and Address Organization Details Last Updated DateTime 3 31.4 kg/m2 00514.4 g 98.1 [degF] 16 /min 57 /min 137 mm[Hg] 76 mm[Hg] Rohini Brody [facility] 3 10:04:05 Date Recorded Body height Body mass index (BMI) Body weight Body temperature Respiratory rate Heart rate Systolic blood pressure Diastolic blood pressure Provider Name and Address Organization Details Last Updated DateTime 4 162.56 cm 30.4 kg/m2 46193.8 5 g 98.4 [degF] 16 /min 58 /min 123 mm[Hg] 68 mm[Hg] Rohini Brody [facility] 4 10:43:39 Date Recorded Body height Body temperature Body mass index (BMI) Body weight Respiratory rate Heart rate Systolic blood pressure Diastolic blood pressure Provider Name and Address Organization Details Last Updated DateTime 4 162.56 cm 98.1 [degF] 30 kg/m2 12917.6 6 g 16 /min 66 /min 121 mm[Hg] 76 mm[Hg] Rohini Brody [facility] 4 10:35:19 Date Recorded Body height Body temperature Respiratory rate Heart rate Body mass index (BMI) Body weight Systolic blood pressure Diastolic blood pressure Provider Name and Address Organization Details Last Updated DateTime 4 162.56 cm 98.1 [degF] 16 /min 55 /min 31.4 kg/m2 93026.4 g 138 mm[Hg] 65 mm[Hg] Rohini Brody [facility] 4 10:12:52 Date Recorded Body height Respiratory rate Heart rate Body temperature Body mass index (BMI) Body weight Provider Name and Address Organization Details Last Updated DateTime 4 162.56 cm 16 /min 60 /min 97.4 [degF] 32.3 kg/m2 59024.3 7 g Roshan Ahuja [facility] 4 09:57:20 Date Recorded Systolic blood pressure Diastolic blood pressure Provider Name and Address Organization Details Last Updated DateTime 09/09/2024 134 mm[Hg] 79 mm[Hg] Adela Umana MD [address] [facility] [address], [place], [address], [facility] 09/09/2024 10:25:01 Social History Question Answer Notes LastModified by Organizat ion Details LastModified Time Tobacco Smoking Status Never Smoker Not Available [facility] 06/25/2020 03:11:41 Do You Have An Advance Directive? Yes [email or web address] Information n ot available 07/30/2020 What Is Your Level Of Alcohol Consumption? None [id number] Information not available 06/25/2020 In The 14 Days Before Symptom Onset, Have You Had Close Contact With A Laboratory-confirm ed COVID-19 While That Case Was Ill? No [email or web address] Information n ot available 07/30/2020 In The 14 Days Before Symptom Onset, Have You Had Close Contact With A Person Who Is Under Investigation For COVID-19 While That Person Was Ill? No [email or web address] Information not available 07/30/2020 Have You Been To An Area Known To Be High Risk For COVID-19? No [email or web address] Information not available 07/30/2020 Have You Directly Handled Bats, Rodents, Or Primates From Ebola Endemic Areas? No [email or web address] Information not available 03/18/2021 Have You Processed Blood Or Body Fluids From An Ebola Virus Disease Patient Without Appropriate PPE? No Information not available 03/18/2021 Have You Had Household Contact With An Ebola Virus Disease Patient? No [email or web address] Information not available 03/18/2021 Have You Had Direct Contact With A Body In An Ebola-affected Area Without Appropriate PPE? No [email or web address] Information not available 03/18/2021 Have You Had Percutaneous (e.g. Needle Stick) Or Mucous Membrane Exposure To Blood Or Body Fluids From An Ebola Virus Disease Patient? No [email or web address] Information not available 03/18/2021 Have You Had Other Close Contact With An Ebola Virus Disease Patient In Health Care Facilities Or Community Settings? No [email or web address] Information not available 03/18/2021 Do You Reside In Or Have You Traveled To An Area Where Ebola Virus Transmission Is Active? No [email or web address] Information not available 03/18/2021 Live Alone Or With Others? With Others [email or web address] Information not available 02/14/2016 What Was The Date Of Your Most Recent Tobacco Screening? 11/10/2021 [email or web address] Information not available 11/10/2021 Sex: Unknown Functional Status None recorded. Mental Status None recorded. Family History Relationship Description Onset Age of this Age Resolved Age Notes LastModified by Organization Details LastModified Time Father Coronary arterioscler osis 81 [email or web address] Not available 2015 09:03:15 Mother Coronary arterioscler osis 85 Not available 2015 09:03:15 Mother Myocardial infarction [email or web address] Not available 02/13 09:03:25 Mother Epilepsy [email or web address] Not availabl e 02/14/2016 09:03:33 Mother Cerebrovascu lar accident [email or web address] Not available 02/2016 09:03:39 Medical History Condition Response Coronary Artery Disease N Other N Gout N Kidney Stones N Blood Diseases N Hyperthyroidism N Breast Cancer N Blood Transfusion N Hypothyroidism N Depression N COPD N Lung Disease N Defects or Inherited Disease N Developmental or Behavioral Disorders N Breast Problem N Difficulty Swallowing N Anesthesia Complications N Meniere's disease N Anxiety Disorder N Muscle, Joint, or Bone Problems N Obesity N Vision or Eye Problems N Arthritis N Polyps N Infertility N Mental Disorder N Cancer N Varicosities N Stroke N Endometriosis N Bladder or Kidney Problems N High Cholesterol N Liver Disease N Headaches N Fibromyalgia N Kidney Disease N Allergies/Hayfever N Heart Problems N Ear or Hearing Problems N Hospitalizations N Thyroid Problems N GI Problems N ADD/ADHD N Skin Problems N Eating Disorder N Anemia N MRSA exposure N Constipation N Mental Illness N Ovarian Cancer N Diabetes N Bedwetting N Seizures/Epilepsy N Tuberculosis N AIDS/HIV N Congestive Heart Failure (CHF) N Eczema N Diverticulitis N Abuse/Domestic Violence N Asthma N Reflux/GERD N Hepatitis N Heart Disease N Pulmonary Embolism N Chronic Ear Infections N Pre-Eclampsia N Hypertension N Chicken Pox N Autism Spectrum Disorder (ASD) N Osteoporosis N Thrombophilias N Gynecological History Statement/Question Response Date of Last Pap Smear 02/09/2020 Date of Last Mammogram 05/11/2021 Date of Last Colonoscopy 09/08/2015 Obstetrics History GPAL:G 0 P 0 0 0 0 Immunizations Vaccine Type Date Status Note Provider Nam e and Address Organization Details Recorded Time Influenza, high-dose, trivalent, PF 8 completed Not Available [facility] 07/24/2022 07:14:14 pneumococcal polysaccharide PPV23 8 completed Not Available [facility] 07/24/2022 07:14:14 Influenza, high-dose, trivalent, PF 0 completed Not Available [facility] 07/24/2022 07:14:14 Influenza, split virus, quadrivalent, preservative 0 completed Not Available [facility] 07/24/2022 07:14:14 COVID-19, mRNA, LNP-S, PF, 30 mcg/0.3 mL dose 2 completed Not Available [facility] 07/24/2022 07:14:14 Td(adult) unspecified formulation 8 completed Not Available [facility] 07/24/2022 07:14:14 Influenza, split virus, trivalent, preservative 6 completed Not Available [facility] 09/27/2019 02:27:22 Pneumococcal conjugate PCV 13 7 completed Not Available [facility] 07/24/2022 07:14:14 Past Encounters Encounter ID Performer Location Encounter Start Date Encounter Closed Date Diagnosis/Indication Diagnosis SNOMED-CT Code Diagnosis ICD10 Code Diagnosis Note [id number] Adela Umana MD [employer], [facility] [address] [place] [address] 02/14/2016 12:27:39 02/14/2016 13:28:22 Benign hypertension 60103549 I10 Menopause present 963063 006 N95.1 Non-toxic multinodular goiter 68455566 E04.2 Hypothyroidism 38155534 E03.9 Hyperlipidemia 85986201 E78.5 Viral screening 64022640 4 Z11.59 Active or passive immunization 205320259 Z23 Osteoarthritis 467418241 M19.90 [id number] Adela Umana MD [employer] [facility], [facility] [address] [place] [address] 08/15/2016 12:06:02 08/15/2016 12:37:47 Benign hypertension 47732382 I10 Hypothyroidism 02363901 E03.9 Hyperlipidemia 76588524 E78.5 Aortic esteban ve regurgitation 01419650 I35.1 mild on ECHO 11/2014 Active or passive immunization 856891154 Z23 Vitamin D deficiency 347 10201 E55.9 Osteoarthritis 096378848 M19.90 [id number] Paulina Aguilera, [facility] [employer], [facility] [address] [place] [address] 09/07/2016 10:11:31 09/07/2016 12:10:58 Adult health examination 757224871 Z00.00 Benign hypertension 1072 5009 I10 Managed with medication . Normal CBC, creatine kinase 08/18/16 CMP normal 02/16/16 Hypothyroidism 83875257 E03.9 Normal TSH, controlled with medication Hyperlipidemia 60632258 E78.5 Normal Lipid panel 08/18/16, controlled with medicaiton Aortic esteban ve regurgitation 14344772 I35.1 mild on ECHO 11/2014 Active or passive immunization 713329272 Z23 Pneumovax and Zostavax ordered Vitamin D deficiency 347 73659 E55.9 Osteoarthritis 887125909 M19.90 [id number] Adela Umana MD [employer], [facility] [address] [place] [address] 02/13/2017 11:39:36 02/13/2017 12:58:28 Benign hypertension 00305387 I10 Hypothyroidism 40376467 E03.9 Hyperlipidemia 72938036 E78.5 Osteoarthritis 586798701 M19.90 Vitamin D deficiency 347 90794 E55.9 Non-toxic multinodular goiter 06897164 E04.2 Screening mammography 24 574145 Z12.31 per pt had mammogram 01/2017 @ [facility] [id number] Adela Umana MD [employer], [facility] [address] [place] [address] 08/15/2017 11:43:25 08/15/2017 12:39:36 Benign hypertension 56318579 I10 sees ophth every year Osteoarthritis 546865482 M19.90 Hypothyroidism 98588820 E03.9 Hyperlipidemia 97809179 E78.5 Non-toxic multinodular goiter 30840109 E04.2 Osteopenia 274591679 M85 .862 Screening mammography 24 602292 Z12.31 per pt had mammogram 12/2016 @ [place] Active or passive immunization 253679945 Z23 Screening for malignant neoplasm of colon 751146031 Z12.11 last C scope 09/08/15 , good till 2020 Abdominal pain 65999319 R10.9 suprapubic , mild , education , [employer] [place]N [id number] Adela Umana MD [employer], [facility] [address] [place] [address] 02/12/2018 12:12:37 02/12/2018 13:10:23 Gastroesophageal reflux disease without esophagitis 113083268 K21.9 Contact dermatitis 32750 004 L25.9 Benign hypertension 1072 5009 I10 sees ophth every year Hypothyroidism 89008993 E03.9 Screening for malignant neoplasm of cervix 681266000 Z12.4 per pt had PAP 01/2018 Active or passive immunization 149755298 Z23 [id number] Adela Umana MD [employer], [facility] [address] [place] [address] 05/15/2018 11:53:53 05/15/2018 13:10:09 Low back pain 653516104 M54.5 Pain in right knee 33858 29803 70782 M25.561 Benign hypertension 1072 5009 I10 sees ophth every year , just seen optometry 04/2018 Non-toxic multinodular goiter 73747067 E04.2 last US 08/22/17 Hypothyroidism 80590899 E03.9 Hyperlipidemia 39533706 E78.5 Screening mammography 24 892618 Z12.31 per pt had mammogram 01/21/18 @ [place] Screening for malignant neoplasm of cervix 266047000 Z12.4 per pt had PAP 01/2018 Screening for malignant neoplasm of colon 194638851 Z12.11 last C scope 09/08/15 , good till 2020 Active or passive immunization 049119084 Z23 [id number] Adela Umana MD [employer], [facility] [address] [place] [address] 08/28/2018 11:46:08 08/28/2018 12:43:32 Benign hypertension 49994387 I10 sees ophth every year , just seen optometry 04/2018 Osteoarthritis 579919381 M19.90 Hypothyroidism 25749816 E03.9 with MNG , recheck [place] Hyperlipidemia 75336539 E78.5 pls take prava Allergic r hinitis caused by pollen 23979747 J30.1 Low back pain 536061269 M54.5 a lot better with PT Screening mammography 24 837565 Z12.31 per pt had mammogram 01/21/18 @ [place] Screening for malignant neoplasm of cervix 614607522 Z12.4 per pt had PAP 01/2018 Screening for malignant neoplasm of colon 108458966 Z12.11 last C scope 09/08/15 , good till 2020 Active or passive immunization 843592613 Z23 Left ventr icular hypertrophy 56104376 I51.7 mild on ECHO 08/2018 , recheck [id number] Adela Umana MD [employer], [facility] [address] [place] [address] 12/19/2018 10:16:40 12/19/2018 11:07:45 Adult health examination 882408391 Z00.01 Benign hypertension 1072 5009 I10 sees ophth every year , just seen optometry 04/2018last EKG 05/15/18 Body mass index 30+ - obesity 740963926 Z68.33 Menopause present 262840 006 N95.1 last DEXA 08/15/17 Non-toxic multinodular goiter 04334289 E04.2 last US 09/04/18 Osteoarthritis 400425400 M19.90 stable Hypothyroidism 92766647 E03.9 with MNG , recheck [place] Hyperlipidemia 30541795 E78.5 pls take prava Left ventr icular hypertrophy 78294504 I51.7 mild on ECHO 09/2018 @ cardiology , will get copy Screening mammography 24 154662 Z12.31 per pt had mammogram 01/21/18 @ [place] Screening for malignant neoplasm of cervix 005271743 Z12.4 per pt had PAP 01/2018 Screening for malignant neoplasm of colon 291945771 Z12.11 last C scope 09/08/15 , good till 2020 Active or passive immunization 164924430 Z23 Ingrowing toenail 480183 009 L60.0 [id number] Adela Umana MD [employer] [address] [place] [address] 06/23/2019 15:44:15 06/23/2019 16:55:11 Preoperative cardiovascular examination 388820767 Z01.810 OK for cataract surg under mac Eruption 385658271 R21 Benign hypertension 1072 5009 I10 sees ophth every year , just seen optometry 04/2018last EKG 05/15/18 Vitamin D deficiency 347 61271 E55.9 Hypothyroidism 01550641 E03.9 with MNG , recheck US Screening mammography 24 864589 Z12.31 per pt had mammogram 01/2919 @ [place] Screening for malignant neoplasm of cervix 716974301 Z12.4 per pt had PAP 01/2018 Screening for malignant neoplasm of colon 453953555 Z12.11 last C scope 09/08/15 , good till 2020 Active or passive immunization 611301163 Z23 Non-toxic multinodular goiter 56182201 E04.2 last US 09/04/18 Hyperlipidemia 95290541 E78.5 pls take prava [id number] Adela Umana MD [employer] [address] [place] [address] 10/13/2019 11:00:40 10/13/2019 11:26:19 Benign hypertension 25622802 I10 sees ophth every year , just seen optometry 07/2019las t EKG 05/15/18 Body mass index 30+ - obesity 391472378 Z68.33 education Hyperlipidemia 04438582 E78.5 pls take prava Hypothyroidism 16598954 E03.9 with MNG , recheck USlast TSH 08/11/19 Non-toxic multinodular goiter 30571397 E04.2 last US 09/04/18 Vitamin D deficiency 347 97402 E55.9 last level 08/11/19 Osteopenia 889915761 M85 .862 last DEXA 08/15/2017 Screening mammography 24 383994 Z12.31 per pt had mammogram 01/2919 @ [place] Screening for malignant neoplasm of cervix 022554823 Z12.4 per pt had PAP 01/2018 Screening for malignant neoplasm of colon 006623153 Z12.11 last C scope 09/08/15 , good till 2020 Active or passive immunization 135520667 Z23 Eruption 059075383 R21 [id number] Adela Umana MD [employer], [facility] [address] [place] [address] 04/08/2020 09:23:48 04/08/2020 10:21:39 Adult health examination 882261421 Z00.01 Benign hypertension 1072 5009 I10 sees ophth every year , just seen optometry 07/2019las t EKG 10/13/19 Hyperlipidemia 01846731 E78.5 last LDL 03/2020 @ goal on prava Hypothyroidism 63984430 E03.9 with MNG ,last TSH 03/25/20 Mitral esteban ve regurgitation 84124819 I34.0 sees cardiology on reg basis Non-toxic multinodular goiter 44744240 E04.2 last US 10/22/19 Osteoarthritis 463552280 M19.90 stable Osteopenia 750473173 M85 .862 last DEXA 10/16/19 Vitamin D deficiency 347 15617 E55.9 last level 08/11/19 Body mass index 30+ - obesity 626214462 Z68.33 education Thyroid fu nction tests abnormal 682359303 R94.6 Screening mammography 24 592518 Z12.31 per pt had mammogram 01/2919 @ [place] Screening for malignant neoplasm of cervix 976137850 Z12.4 per pt had PAP 01/2020 Screening for malignant neoplasm of colon 037988163 Z12.11 last C scope 09/08/15 , good till 2020 Active or passive immunization 374532827 Z23 Hyperkalemia 51490128 E8 7.5 Hyperglycemia 99170841 R 73.9 Gastroesop hageal reflux disease without esophagitis 508685330 K21.9 [id number] Adela Umana MD [employer], [employer] [address] [place] [address] 07/30/2020 09:51:38 07/30/2020 10:50:12 Benign hypertension 85620986 I10 sees ophth every year , just seen optometry 04/2020last EKG 10/13/19 Body mass index 30+ - obesity 464940450 Z68.33 education Hypothyroidism 71638663 E03.9 with MNG ,last TSH 03/25/20 Non-toxic multinodular goiter 30301252 E04.2 last US 10/22/19 Osteopenia 959226008 M85 .862 last DEXA 10/16/19 Vitamin D deficiency 347 49562 E55.9 last level 08/11/19 Screening mammography 24 235628 Z12.31 per pt had mammogram 04/14/20 Screening for malignant neoplasm of cervix 169585818 Z12.4 per pt had PAP 01/2020 Screening for malignant neoplasm of colon 647294154 Z12.11 last C scope 06/09/2020 , good for 5 years Active or passive immunization 231627217 Z23 up to date [id number] Adela Umana MD [employer], [employer] [address] [place] [address] 10/27/2020 10:28:48 10/27/2020 11:28:34 Preoperative cardiovascular examination 120736959 Z01.810 OK for blepharopl asty surg under mac Benign hypertension 1072 5009 I10 sees ophth every year , just seen optometry 04/2020last EKG 10/13/19 Body mass index 30+ - obesity 122717078 Z68.33 education Hyperlipidemia 17326223 E78.5 last LDL 03/2020 @ goal on prava Hypothyroidism 85816704 E03.9 with MNG ,last TSH 03/25/20 Osteopenia 212200556 M85 .862 last DEXA 10/16/19 Vitamin D deficiency 347 21926 E55.9 last level 04/10/20 Non-toxic multinodular goiter 38238110 E04.2 last US 10/22/19 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 per endo note 06/15/20 Screening mammography 24 589700 Z12.31 per pt had mammogram 04/14/20 Screening for malignant neoplasm of cervix 774403920 Z12.4 per pt had PAP 01/2020 Screening for malignant neoplasm of colon 144347929 Z12.11 last C scope 06/09/2020 , good for 5 years Active or passive immunization 390567217 Z23 up to date [id number] Adela Umana MD [employer] [employer] [address] [place] [address] 03/18/2021 09:30:25 03/18/2021 10:37:48 Benign hypertension 50744055 I10 sees ophth every year , just seen optometry 10/20/20las t EKG 10/13/19 Body mass index 30+ - obesity 352447968 Z68.33 education Osteopenia 691229612 M85 .862 last DEXA 10/16/19with Rt 5th metatarsal Fxwill start fosamax Hyperlipidemia 92341762 E78.5 last LDL 12/07/20 @ goal on prava Hypothyroidism 08206413 E03.9 with MNG ,last TSH 10/28/20 Left ventr icular hypertrophy 03117978 I51.7 mild on ECHO 09/2018 @ cardiology , will get copy Non-toxic multinodular goiter 45649955 E04.2 last US 11/16/20 Screening mammography 24 921154 Z12.31 per pt had mammogram 04/14/20 Screening for malignant neoplasm of cervix 179997572 Z12.4 per pt had PAP 01/2020 Screening for malignant neoplasm of colon 729880108 Z12.11 last C scope 06/09/2020 , good for 5 years Active or passive immunization 463287038 Z23 up to date [id number] Adela Umana MD [facility] [address] [facility] [address] [place] [address] 06/09/2021 10:41:18 06/09/2021 12:05:02 Adult health examination 020059052 Z00.01 Benign hypertension 1072 5009 I10 sees ophth every year , just seen optometry 10/20/20las t EKG 03/21/21 Body mass index 30+ - obesity 116494328 Z68.33 education Gastroesop hageal reflux disease without esophagitis 829069739 K21.9 stable Hyperlipidemia 32911824 E78.5 last LDL 12/07/20 @ goal on prava Hypothyroidism 94927543 E03.9 with MNG ,last TSH 03/22/21 Left ventr icular hypertrophy 34726405 I51.7 mild on ECHO 09/2018 @ cardiology , Low back pain 880852369 M54.5 a lot better with PT Menopause present 754050 006 N95.1 last DEXA 10/16/19 Non-toxic multinodular goiter 78350373 E04.2 last US 11/16/20 Osteoarthritis 103636408 M19.90 stable Osteopenia 624537034 M85 .862 last DEXA 10/16/19with Rt 5th metatarsal Fxwill start fosamax Vitamin D deficiency 347 00092 E55.9 last level 03/22/21 Screening mammography 24 911472 Z12.31 per pt had mammogram 05/11/21 Screening for malignant neoplasm of cervix 684081750 Z12.4 per pt had PAP 01/2020 Screening for malignant neoplasm of colon 636922692 Z12.11 last C scope 06/09/2020 , good for 5 years Active or passive immunization 815681196 Z23 up to date Hearing sc reening status 535015184 Z13.5 [id number] Adela Umana MD [facility] [address] [place] [address] 11/10/2021 11:16:42 11/10/2021 11:55:04 Benign hypertension 91648244 I10 sees ophth every year , just seen optometry 10/20/20las t EKG 03/21/21 Body mass index 30+ - obesity 337302683 Z68.33 education Gastroesop hageal reflux disease without esophagitis 056077907 K21.9 stable Hyperlipidemia 80095135 E78.5 last LDL 09/05/21 @ goal on prava Hypothyroidism 38185385 E03.9 with MNG ,last TSH 09/05/21 Left ventr icular hypertrophy 63123455 I51.7 mild on ECHO 09/2018 @ cardiology , Menopause present 875552 006 N95.1 last DEXA 10/16/19 Non-toxic multinodular goiter 12426909 E04.2 last US 11/16/20 Osteoarthritis 272150300 M19.90 stable Vitamin D deficiency 347 75139 E55.9 last level 03/22/21 Screening mammography 24 639164 Z12.31 per pt had mammogram 05/11/21 Screening for malignant neoplasm of cervix 402296441 Z12.4 per pt had PAP 01/2020 Screening for malignant neoplasm of colon 139151087 Z12.11 last C scope 06/09/2020 , good for 5 years Active or passive immunization 908751107 Z23 up to date Low back pain 238063686 M54.50 [id number] Adela Umana MD [employer] [facility], [facility] [address] [place] [address] 03/28/2022 09:54:02 03/28/2022 10:51:56 Benign hypertension 04245903 I10 sees ophth every year , just seen optometry 01/27/22las t EKG 03/21/21 Osteopenia 239028464 M85 .862 last DEXA 12/07/21wit h Rt 5th metatarsal Fxon fosamax Allergic r hinitis caused by pollen 42828615 J30.1 Body mass index 30+ - obesity 320193068 Z68.33 education Hypothyroidism 76039920 E03.9 with MNG ,last TSH 09/05/21 Hyperlipidemia 75033076 E78.5 last LDL 09/05/21 @ goal on prava Left ventr icular hypertrophy 31016129 I51.7 mild on ECHO 09/2018 @ cardiology , Palpitations 93111602 R0 0.2 H/O PVC and MVPrecheck ECHO Screening mammography 24 054664 Z12.31 per pt had mammogram 05/11/21 Screening for malignant neoplasm of cervix 185327895 Z12.4 per pt had PAP 01/2020 Screening for malignant neoplasm of colon 468085706 Z12.11 last C scope 06/09/2020 , good for 5 years Active or passive immunization 671653720 Z23 up to date [id number] Adela Umana MD [employer] [facility], [facility] [address] [place] [address] 10/16/2022 10:00:15 10/16/2022 11:07:02 Adult health examination 096308951 Z00.01 Benign hypertension 1072 5009 I10 sees ophth every year , just seen optometry 01/27/22las t EKG 04/20/22 Body mass index 30+ - obesity 334295100 Z68.33 education Gastroesop hageal reflux disease without esophagitis 388580638 K21.9 stable Hyperlipidemia 70560127 E78.5 last LDL 03/29/22 @ goal on prava Hypothyroidism 94837091 E03.9 with MNG ,last TSH 03/29/22 Left ventr icular hypertrophy 57578354 I51.7 mild on ECHO 04/2022 per pt Menopause present 005756 006 N95.1 last DEXA 12/07/21 Low back pain 136142686 M54.50 stable Allergic r hinitis caused by pollen 62168291 J30.1 stable Microscopic hematuria [address] 12/07/21 , seen urology Mitral esteban ve regurgitation 46092588 I34.0 sees cardiology on reg basis Non-toxic multinodular goiter 83145362 E04.2 last US 12/07/21 Osteoarthritis 809207876 M19.90 stable Osteopenia 158757620 M85 .862 last DEXA 12/07/21wit h Rt 5th metatarsal Fxon fosamax Thyroid fu nction tests abnormal 140795332 R94.6 recheck Vitamin D deficiency 347 46123 E55.9 last level 03/29/22 Screening mammography 24 194410 Z12.31 per pt had mammogram 07/07/22 Screening for malignant neoplasm of cervix 068211902 Z12.4 per pt had PAP 01/2022 Screening for malignant neoplasm of colon 804019567 Z12.11 last C scope 06/09/2020 , good for 5 years Active or passive immunization 682754451 Z23 up to datedeclin e flu Advance di rective discussed with patient 616738402 Z71.89 education Intermitte nt palpitations 684869525 R00.2 [id number] Adela Umana MD [facility], [facility] [address] [place] [address] 04/16/2023 09:58:24 04/16/2023 11:05:30 Benign hypertension 17382511 I10 sees ophth every year , just seen optometry 01/27/22las t EKG 04/20/22 Atrial fibrillation 4943 6004 I48.91 on holter per pt , will get copyantico agulation safty education Body mass index 30+ - obesity 090254308 Z68.33 educationd own 5 LBs on diet Hyperlipidemia 36096426 E78.5 last LDL 10/19/22 @ goal on prava Hypothyroidism 30959528 E03.9 with MNG ,last TSH 03/29/22 Microscopic hematuria [address] 12/07/21 , seen urology Non-toxic multinodular goiter 65810681 E04.2 last US 12/07/21 Vitamin D deficiency 347 70820 E55.9 last level 03/29/22 Screening mammography 24 512639 Z12.31 per pt had mammogram 07/07/22 Screening for malignant neoplasm of cervix 567377484 Z12.4 per pt had PAP 01/2022 Screening for malignant neoplasm of colon 015667264 Z12.11 last C scope 06/09/2020 , good for 5 years Active or passive immunization 584042690 Z23 up to datedeclin e flu [id number] Adela Umana MD [employer] [employer] [address] [place] [address] 07/18/2023 09:47:21 07/18/2023 11:01:56 Benign hypertension 37318056 I10 sees ophth every year , just seen optometry 01/27/22las t EKG 06/2023 @ cardiology Body mass index 30+ - obesity 986255239 Z68.33 educationo n diet Coronary arteriosclerosis 97019234 I25.10 per pt on cardiac cath 06/2023wil l get copy Hyperlipidemia 53076368 E78.5 last LDL 10/19/22 @ goal on prava Hypothyroidism 69860253 E03.9 with MNG ,last TSH 03/29/22 Atrial fibrillation 4943 6004 I48.91 on holter per pt , will get copyantico agulation safty education Screening mammography 24 393429 Z12.31 per pt had mammogram 07/07/22 Screening for malignant neoplasm of cervix 586148535 Z12.4 per pt had PAP 01/2022 Screening for malignant neoplasm of colon 711416237 Z12.11 last C scope 06/09/2020 , good for 5 years Active or passive immunization 937581884 Z23 up to datedeclin e flu [id number] Adela Umana MD [employer] [employer] [address] [place] [address] 10/19/2023 10:05:12 10/19/2023 11:35:13 Adult health examination 515044895 Z00.01 Benign hypertension 1072 5009 I10 sees ophth every year , just seen optometry 01/27/22las t EKG 06/2023 @ cardiology Atrial fibrillation 4943 6004 I48.91 on holter per pt , will get copyantico agulation safty education Allergic r hinitis caused by pollen 54358092 J30.1 stable Body mass index 30+ - obesity 299834662 Z68.33 educationo n diet Coronary arteriosclerosis 27201620 I25.10 per pt on cardiac cath 06/2023wil l get copy Gastroesop hageal reflux disease without esophagitis 758658162 K21.9 stable Hyperlipidemia 68280971 E78.5 last LDL 04/21/23 @ goal on prava Hypothyroidism 21453020 E03.9 with MNG ,last TSH 04/21/23 Left ventr icular hypertrophy 17785532 I51.7 mild on ECHO 04/2022 per pt Low back pain 794125723 M54.50 stable Menopause present 975535 006 N95.1 last DEXA 12/07/21 Microscopic hematuria [address] 12/07/21 , seen urology Non-toxic multinodular goiter 87415454 E04.2 last US 04/25/23 Mitral esteban ve regurgitation 84148620 I34.0 sees cardiology on reg basis Osteoarthritis 248056605 M19.90 stable Thyroid fu nction tests abnormal 042241247 R94.6 recheck Vitamin D deficiency 347 31108 E55.9 last level 03/29/22 Screening mammography 24 552844 Z12.31 per pt had mammogram 07/07/22 Screening for malignant neoplasm of cervix 194117892 Z12.4 per pt had PAP 01/2022 Screening for malignant neoplasm of colon 662597083 Z12.11 last C scope 06/09/2020 , good for 5 years Active or passive immunization 537142078 Z23 up to datedeclin e flu Advance di rective discussed with patient 414978172 Z71.89 education [id number] Adela Umana MD [facility] [address] [place] [address] 01/18/2024 09:52:40 01/18/2024 11:24:04 Hypothyroidism 84110942 E03.9 with MNG ,last TSH 5/2/24 Atrial fibrillation 4943 6004 I48.91 on holter per pt , will get copyantico agulation safty education Benign hypertension 1072 5009 I10 sees ophth every year , just seen optometry 10/2023last EKG 06/2023 @ cardiology Body mass index 30+ - obesity 919851561 Z68.33 educationo n diet Coronary arteriosclerosis 79236647 I25.10 per pt on cardiac cath 06/2023wil l get copy Hyperlipidemia 09397809 E78.5 last LDL 11/09/23 @ goal on prava Menopause present 598291 006 N95.1 last DEXA 12/07/21 Microscopic hematuria [address] 12/07/21 , seen urology Non-toxic multinodular goiter 20525198 E04.2 last US 04/25/23 Vitamin D deficiency 347 64777 E55.9 last level 11/09/23 Screening mammography 24 450670 Z12.31 per pt had mammogram 12/12/23 Screening for malignant neoplasm of cervix 843801784 Z12.4 per pt had PAP 01/2022 Screening for malignant neoplasm of colon 474049539 Z12.11 last C scope 06/09/2020 , good for 5 years Active or passive immunization 311049300 Z23 up to datedeclin e flu Long-term drug therapy 915528334 Z79.899 statin [id number] Adela Umana MD [facility], [facility] [address] [place] [address] 06/05/2024 09:52:18 06/05/2024 10:32:29 Benign hypertension 56888404 I10 sees ophth every year , seen optometry 10/2023last EKG 06/2023 @ cardiology Atrial fibrillation 4943 6004 I48.91 on holter per pt , will get copyantico agulation safty education Body mass index 30+ - obesity 042051314 Z68.33 educationo n diet Coronary arteriosclerosis 87467593 I25.10 per pt on cardiac cath 06/2023wil l get copy Gastroesop hageal reflux disease without esophagitis 752585721 K21.9 stable Hyperlipidemia 80854984 E78.5 last LDL 11/09/23 @ goal on prava Hypothyroidism 56437955 E03.9 with MNG ,last TSH 01/10/24 Microscopic hematuria [address] 12/07/21 , seen urology Non-toxic multinodular goiter 76441034 E04.2 last US 04/25/23 Vitamin D deficiency 347 19663 E55.9 last level 11/09/23 Menopause 223841800 Z78. 0 Screening mammography 24 023566 Z12.31 per pt had mammogram 12/12/23 Screening for malignant neoplasm of cervix 528355098 Z12.4 per pt had PAP 01/2024 Screening for malignant neoplasm of colon 721762185 Z12.11 last C scope 06/09/2020 , good for 5 years Active or passive immunization 417803103 Z23 up to datedeclin e flu Long-term drug therapy 992973991 Z79.899 statin [id number] Adela Umana MD [employer], [facility] [address] [place] [address] 09/09/2024 09:45:12 09/09/2024 10:37:15 Benign hypertension 50042101 I10 sees ophth every year , seen optometry 10/2023last EKG 08/2024 @ cardiology Body mass index 30+ - obesity 521674089 Z68.33 educationo n diet Allergic r hinitis caused by pollen 56704045 J30.1 stable Atrial fibrillation 4943 6004 I48.91 on holter per pt , will get copyantico agulation safty education Gastroesop hageal reflux disease without esophagitis 312182454 K21.9 stable 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 0 Microscopic hematuria [address] 12/07/21 , seen urology Non-toxic multinodular goiter 03044747 E04.2 last US 06/23/24 Vitamin D deficiency 347 30866 E55.9 last level 11/09/23 Screening mammography 24 898577 Z12.31 per pt had mammogram 12/12/23 Screening for malignant neoplasm of cervix 950660899 Z12.4 per pt had PAP 01/2024 Screening for malignant neoplasm of colon 580766224 Z12.11 last C scope 06/09/2020 , good for 5 years Active or passive immunization 790185217 Z23 up to datedeclin e flu Health Concerns Section Related Observation LastModified by Organization Detai ls LastModified Time None Recorded Concern Status LastModified by Organization Details LastModified Time None Recorded Advance Directives Directive Y: Payers Encounter Date Sequence Insurance Name Policy Number Policy Gao Covered Member ID Gao Member ID Guarantor Name 07/18/2023 2 [employer] (MEDICARE SUPPLEMENT) PLAN G Bárbara Bell Barb [id number] Bárbara Bell Barb 07/18/2023 1 [facility] Bárbara Bell Barb [id number] Bárbara Bell Barb 10/19/2023 2 [employer] (MEDICARE SUPPLEMENT) PLAN G Bárbara Bell Barb [id number] Bárbara Bell Barb 10/19/2023 1 [facility] Bárbara Bell Barb [id number] Bárbara Bell Barb 01/18/2024 2 [employer] (MEDICARE SUPPLEMENT) PLAN G Bárbara Bell Barb [id number] Bárbara Bell Barb 01/18/2024 1 [facility] Bárbara Bell Barb [id number] Bárbara Bell Barb 06/05/2024 2 [employer] (MEDICARE SUPPLEMENT) PLAN G Bárbara Bell Barb [id number] Bárbara Bell Barb 06/05/2024 1 [facility]ICARE B: [facility] Bárbara Bell Barb [id number] Bárbara Bell Barb 09/09/2024 2 [employer] (MEDICARE SUPPLEMENT) PLAN G Bárbara Bell Barb [id number] Bárbara Bell Barb 09/09/2024 1 MEDICARE B: [facility] Bárbara Bell Barb [id number] Bárbara J Barb Notes Date Note Type Note Provider Name and Address Organization Details Recorded Time 07/18/2023 text/html Hypertension F/UReported bypatient.Medications: taking medications as directed; no side effects from medication Lifestyle:regular exercise; limiting/avoiding salt; compliant with low salt diet Associated Symptoms:no dizziness; no lightheadedness; no chest pain; no shortness of breath; no palpitations; no edema; no calf pain with exertion; no headache Adela Umana MD [address] [place] [address] [address], [place], [address], [facility] 07/18/2023 10:56:25 10/19/2023 text/html Hypertension F/UReported bypatient.Medications: taking medications as directed; no side effects from medication Lifestyle:regular exercise; limiting/avoiding salt; compliant with low salt diet Associated Symptoms:no dizziness; no lightheadedness; no chest pain; no shortness of breath; no palpitations; no edema; no calf pain with exertion; no headacheMedicare Annual Wellness VisitReported bypatient.Diet and Nutrition:healthy diet Fracture Risk:no history of fractures; no recent explained fracture; no sudden unexplained fractures; no previous musculoskeletal injuries Physical Activity:exercises on a regular basis (walking); recent increase in physical activity; good physical condition; discussed exercise habits Depression Risk:never feels sad, empty, or tearful; no loss of interest in activities; no significant changes in weight; no sleep disturbances or insomnia; no agitation; no loss of energy; no feelings of worthlessness or guilt; no thoughts of suicide; no history of depression; no history of mood disorders Orientation:no disorientation to time; no disorientation to date; no disorientation to place Concentration and Memory:no decreased concentrating ability; no memory lapses or loss; does not forget words Speech/Motor difficulties:no speech difficulties; no difficulty expressing formulated concepts; no difficulty with fine manipulative tasks; no difficulty writing/copying; no slowed reaction time; does not knock things over when trying to pick them up Hearing:no loss of hearing Vision:no vision problems Activities of Daily Living:able to bathe with limited or no assistance; able to contol urination and bowels; able to dress with limited or no assistance; able to feed self with limited or no assistance; able to get out of chair or bed with limited or no assistance; able to groom with limited or no assistance; able to toilet with limited or no assistance Instrumental Activities of Daily Living:able to do house work with limited or no assistance; able to grocery shop with limited or no assistance; able to manage medications with limited or no assistance; able to manage money with limited or no assistance; able to prepare meals with limited or no assistance; able to use the phone with limited or no assistance Falls Risk Assessment:no frequent falls while walking; no fall in the past year; no fall since last visit; no dizziness/vertigo Home Safety:use of seatbelts; no vision or hearing loss while driving Adela Umana MD [address], [place], [address], [facility] 10/19/2023 11:27:07 01/18/2024 text/html Hypertension F/UReported bypatient.Medications: taking medications as directed; no side effects from medication Lifestyle:regular exercise; limiting/avoiding salt; compliant with low salt diet Associated Symptoms:no dizziness; no lightheadedness; no chest pain; no shortness of breath; no palpitations; no edema; no calf pain with exertion; no headache Adela Umana MD [address], [place], [address], [facility] 01/18/2024 11:18:51 06/05/2024 text/html Hypertension F/UReported bypatient.Medications: taking medications as directed; no side effects from medication Lifestyle:regular exercise; limiting/avoiding salt; compliant with low salt diet Associated Symptoms:no dizziness; no lightheadedness; no chest pain; no shortness of breath; no palpitations; no edema; no calf pain with exertion; no headache Adela Umana MD [address], [place], [address], [facility] 06/05/2024 10:28:11 09/09/2024 text/html Hypertension F/UReported bypatient.Medications: taking medications as directed; no side effects from medication Lifestyle:regular exercise; limiting/avoiding salt; compliant with low salt diet Associated Symptoms:no dizziness; no lightheadedness; no chest pain; no shortness of breath; no palpitations; no edema; no calf pain with exertion; no headache Adela Umana MD [address] [facility] [address], [place], [address], [facility] 09/09/2024 10:26:53 OBGyn Episode No OBEpisode recorded.
--- OUTSIDE RECORDS SUMMARY | 2024-12-18 08:08 | XMS_ITS | Clinical Summary ---
Author Organization [facility] Medical Office [place] Address [address] [address] [place] [address] Care Team Providers Care Distiller Name Role Phone Adela Lu MD Primary Care Provider [phone] Allergies Active Allergy Reactions Criticality Noted Date Comments Niacin Swelling Low 09/26/2023 Simvastatin Muscle Pain Low 09/26/2023 Sulfa (Sulfonamide Antibiotics) Itching Low 05/12 Medications alendronate (FOSAMAX) 70 mg tablet Take 70 mg by mouth every 7 days. 3 Active doxycycline (MONODOX) 100 mg Capsule Take 100 mg by mouth daily. For rosacea and eyes; states this is a continuous drug 3 Active furosemide (LASIX) 20 mg tablet Take 20 mg by mouth 1 time daily as needed. 3 Active losartan (COZAAR) 25 mg tablet Take 25 mg by mouth daily. 3 Active metoprolol succinate (TOPROL XL) 50 mg Extended Release 24 hour tablet Take 75 mg by mouth daily. 3 Active pravastatin (PRAVACHOL) 20 mg tablet Take 20 mg by mouth daily at bedtime. 3 Active aspirin (ECOTRIN EC) 81 mg Tablet, Delayed Release (E.C.) Take 81 mg by mouth daily. Active coenzyme Q10 200 mg Capsule Take 400 mg by mouth daily. Active diclofenac (SOLARAZE) 3 % gel Apply to affected area 2 times daily. Active fluticasone propionate (FLONASE) 50 mcg/spray [facility], Suspension nasal inhaler Administer 2 Sprays in each nostril daily. Active metroNIDAZOLE (METROGEL) 0.75 % Gel Apply to affected area 2 times daily. Active Levothyroxine (Tirosint) 100 mcg Capsule Take by mouth daily in the morning. Active triamcinolone acetonide (KENALOG) 0.1 % Cream Apply to affected area 2 times daily. Active cholecalciferol , vitamin D3, 5,000 unit Take 5,000 Units by mouth 2 times daily. Active cetirizine (ZyrTEC) 10 mg tablet Take 10 mg by mouth daily. Active Azelaic Acid (Finacea) 15 % Gel Apply to affected area 1 time daily as needed for Other (See Comment) (rosatia). Active Eliquis 5 mg tablet Take 1 Tablet (5 mg) by mouth 2 times daily. 180 Tablet 2 4 Active Active Problems Patient Care Coordination No te Formatting of this note migh t be different from the original. Research Director: Dany Gallardo MD Problem Noted Date Diagnosed Date Benign hypertension 09/17/2023 Atrial fibrillation 04/16/2023 Encounters Date Type Department Care Team Description 11/26/2024 External Device Data [facility] Provider, Abstract 11/15/2024 External Device Data [facility] Provider, Abstract 11/14/2024 External Device Data [facility] Provider, Abstract 11/12/2024 External Device Data [facility] Provider, Abstract 10/29/2024 External Device Data [facility] Provider, Abstract 10/07/2024 External Device Data [facility] Provider, Abstract 10/01/2024 External Device Data [facility] Provider, Abstract 10/01/2024 External Device Data [facility] Provider, Abstract 09/30/2024 Abstract [facility] [place] [address] [place] [address] Keyonna Schultz, [facility] 09/26/2024 Refill [facility] [place] [address] [address] [address] [place] [address] Dany Gallardo MD from Last 3 Months Social History Tobacco Use Types Packs/Day Years Used Date Smoking Tobacco: Never Smokeless Tobacco: Never Tobacco Cessation:Counseling Given: Not Answered Alcohol Use Standard Drinks/Week Comments Not Currently 0 (1 standard drink = 0.6 oz pur e alcohol) Feeling Safe Answer Date Recorded Are you in a relationship wi th someone who hurts you emotionally and/or physically? No 06/14/2023 Comments No Sex and Gender Information Value Date Recorded Sex Assigned at Not on file Legal Sex Female 3:12 PM CDT Gender Identity Not on file Sexual Orientation Not on file Last Filed Vital Signs Vital Sign Reading Time Taken Comments Blood Pressure 134/77 04/02/2024 9:34 AM CDT Pulse 60 04/02/2024 9:34 AM CDT Temperature 36.2 C (97.1 F) 06/14/2023 10:46 AM CDT Respiratory Rate 16 06/14/2023 4:00 PM CDT Oxygen Saturation 98% 04/02/2024 9:34 AM CDT Inhaled Oxygen Concentration - - Weight 80.3 kg (177 lb) 04/02/2024 9:34 AM CDT Height 162.6 cm (5' 4 ) 04/02/2024 9:34 AM CDT Body Mass Index 30.38 04/02/2024 9:34 AM CDT Plan of Treatment Health Maintenance Due Date Last Done Comments Traditional Medicare (ACO) A nnual Wellness Visit 02/20/1967 ZOSTER VACCINE (1 of 2) 02/20/1998 DTAP/TDAP/TD VACCINES (1 - Tdap) 07/04/2008 07/03/20 08 RSV VACCINE (60+ or ) (1 - 1-dose 75+ series) 02/20/2023 INFLUENZA VACCINE (#1) 2024 , 11/06/2019, 08/28/2018, Additional history exists PNEUMOCOCCAL VACCINE 50+ YEARS Completed 09/05/2018 , 04/04/2017 COLORECTAL SCREENING Discontinued 06/09/2020, 06/09/2020, 09/07/2015, Additional history exists Colorectal Cancer Screening Discontinued OSTEOPOROSIS SCREENING Completed 12/07/2021, 2019 FIT-DNA Q 3 years Discontinued FIT/FOBT Q 1 year Discontinued Flex Sig/CT Colonography Q 5 years Discontinued Medical Devices Implanted Type Area Insulation Estimator Device Identifier Shelf Expiration Date Model / Serial / Lot Lens Bilateral: Eye Insurance MEDICARE RAILROAD [employer] MEDICARE SUPP AESSI Advance Directives For more information, please contact: [phone] * Full Code (Latest Code Status on File) Date Activated Date Inactivated Comments 06/14/2023 10:18 AM 06/14/2023 6:46 PM Care Teams Distiller Relationship Specialty Start Date End Date Adela Lu MD [address] [place] [phone] PCP - General Internal Medicine 06/27/23
--- OUTSIDE RECORDS SUMMARY | 2024-12-18 08:08 | XMS_ITS | Data Portability ---
Author Organization [place] - [facility] OFFICE Address [facility] [place] [address] Care Team Providers Care Staking Engineer Name Role Phone NURIS UMANA Primary Care Provider Assessment Encounter Date Assessment Date Assessment LastModified by Organization Details LastModified Time 04/11/2023 04/11/2023 Patient Examined by SHERRIE Lu, Also Documentation reviewed and approved by supervising physician brianne Not available 04/11/2023 10:50:28 04/25/2023 04/25/2023 Patient Examined by SHERRIE Lu, Also Documentation reviewed and approved by supervising physician sara Not available 04/24/2023 07:06:29 Plan of Treatment Reminders Order Date Submit Date Provider Last Modified By Organization Details Last Modified Time Details Appointments ESTABLISH ED PATIENT DETAILED 2024 10:00A M Dany Owens i, MD Not available Not available Not available Lab None recorded. Referral None recorded. Procedures None recorded. Surgeries None recorded. Imaging electroca rdiogram 2022 023 LEON[place] Not available 12/08/2022 12:28:05 Medication Orders Eliquis 5 mg tablet 2022 023 [place] [id number], [address] [facility], [place], [place], [id number], 04/25/2023 10:47:31 losartan 25 mg tablet 2022 023 [facility], [address] [facility], [place], [address], 04/11/2023 11:05:45 Eliquis 5 mg tablet 2022 023 [place] [facility], [address] [facility], [place], [address], 04/11/2023 11:05:32 Patient TargetsNo targets recorded. Patient Instructions Encounter Date Encounter Id Patient Instructions Last Modified By Organization Details Last Modified Time 10/18/2020 [id number] heart valve disease: care instructions Not available 10/18/2020 14:22:32 mitral valve prolapse: care instructions [email or web address] Not available 10/18/2020 14:22:32 premature heartbeat: care instructions [email or web address] Not available 10/18/2020 14:22:32 hypothyroidism: care instructions [email or web address] Not available 10/18/2020 14:22:32 learning about low-fat eating [email or web address] Not available 10/18/2020 14:22:32 high cholesterol : care instructions Not available 10/18/2020 14:22:32 Exercise advised Low cholesterol diet advised Low sodium diet advised [email or web address] Not available 10/18/2020 14:15:02 Patient was seen and evaluated by Priyanka Rodriguez [facility]. Plan of care was discussed with collaborating physician and note cosigned by Dr. Dany Gallardo. [email or web address] Not available 10/18/2020 14:21:31 04/25/2023 [id number] Low cholesterol diet advised Low sodium diet advised. [email or web address] Not available 04/25/2023 10:46:26 09/02/2024 [id number] Weight loss 20 pounds Exercise advised Low cholesterol diet advised Low sodium diet advised. [email or web address] Not available 09/02/2024 10:09:34 Reason for Referral None Reported. Results Created Date Observation Date Name Description Value Unit Range Abnormal Flag Note LastModifiedBy Organization Detail LastModifiedTime 10/20/19 21 10/18/2020 nela thomas am No observ ation record ed. [email or web address] Not Available 2020 15:43:06 12/09/19 23 12/08/2022 elect jennifer thomas am No observ ation record ed. Dany Gallardo MD [address], [place], [address], 12/08/2022 12:28:05 12/12/19 23 03/28/2022 elect rocar diogr am No observ ation record ed. Not Available 2022 12:10:19 12/13/19 23 12/08/2022 elect rocar diogr am No observ ation record ed. Not Available 2022 09:20:29 01/25/20 23 12/29/2022 event monit or No observ ation record ed. Not Available 2022 13:51:11 04/28/20 23 04/14/2023 exerc ise stres s test No observ ation record ed. Not Available 2022 14:25:49 07/03/20 23 06/14/[address] ment for coron wallace angio graph y with left heart jose luis teriz ation inclu ding intra proce dural injec tion( s) for left ventr iculo graph y w/ jose luis [facility] place ment in bypas s graft (s) (PROC ) No observ ation record ed. [email or web address] Not Available 2023 06:08:39 05/21/20 24 05/02/2024 , echoc ardio gram No observ ation record ed. [email or web address] Not Available 2023 06:04:51 09/02/20 24 09/02/2024 elect rocar diogr am No observ ation record ed. Not Available 2023 11:04:16 Result Notes None recorded. Problems Name Problem SNOMED Code Status Onset Date Resolution Date Notes Provider Name and Address Organization Details Recorded Time Benign hypertension 26047503 Active Bethany trivedi [place] - [facility] 3 14:58:01 Body mass index 30+ - obesity 537107250 Active 2018 Bethany trivedi [place] - [facility] 3 09:59:43 Microscopic hematuria 268356645 Active 2021 Bethany trivedi [place] [facility] 3 09:59:43 Allergic rhinitis caused by pollen 34973120 Active 2021 Bethany Antonioto [place] [facility] 3 09:59:43 Low back pain 241049973 Active Bethany Anton[place] [facility] 3 09:59:43 Menopause present 129766352 Active Bethany Antoni[place] [facility] 3 09:59:43 Diverticulitis 070275231 Active Bethany Antnoioto [place] [facility] 3 09:59:43 Thyroid function tests abnormal 097440346 Active 2019 Sims Mesto [place] [facility] 3 09:59:43 Osteopenia 091917149 Active 2019 Sims [place] [facility] 3 09:59:43 Vitamin D deficiency 21546837 Active 2018 Sims Marisel[place] [facility] 3 09:59:43 Non-toxic multinodular goiter 50199548 Active Bethany Antoni[place] [facility] 3 09:59:43 Osteoarthritis 390817122 Active 2016 Sims [place] [facility] 3 09:59:43 Mitral valve regurgitation 52713358 Active Bethany Antoni[place] [facility] 3 09:59:43 Left ventricular hypertrophy 19950391 Active 2017 Sims [place] [facility] 3 09:59:43 Hyperlipidemia 29461059 Active 2015 Sims [place] [facility] 3 14:58:08 Chest pain 57388428 Active 2015 Sims [place] [facility] 3 09:59:43 Mitral valve prolapse 639891887 Active 2015 Sims [place] [facility] 3 09:59:43 Hypothyroidism 13640814 Active 2015 Sims [place] [facility] 3 14:58:10 Ventricular premature beats 73901101 Active 2015 Sims Mes[place]ayla [place] [facility] 3 09:59:43 Gastroesophage al reflux disease 243444453 Active 2015 Sims Mes [place] [facility] 3 09:59:43 Irritable bowel syndrome 81688864 Active 2015 Sims [place]ela [place] [facility] 3 09:59:43 Benign essential hypertension 9620673 Active 2016 Sims Mes [place] [facility] 3 14:57:54 Edema of lower extremity 641766746 Active 2016 Sims [place]isel[place]la [place] [facility] 3 09:59:42 Dyspnea on exertion 01611848 Active 2019 Sims Mes [place] [facility] 3 09:59:43 Problem Notes None recorded. Procedures Surgical History Date Name Laterality Status Provider Name and Address Organization Details Recorded Time Tonsillecto my/Adenoide ctomy completed Sims Mariselamaakyla [place] - [facility] 03/18/2016 15:54:20 Imaging Results Imaging Date Name Status LastModified by Organization Details LastModified Time 10/18/2020 electrocardiogram completed Informa tion not available 10/27/2020 15:43:06 12/08/2022 electrocardiogram completed Dany Fisher MD [address], [place], [address], 12/08/2022 12:28:05 03/28/2022 electrocardiogram completed Informa tion not available 12/11/2022 12:10:19 12/08/2022 electrocardiogram completed Informa tion not available 12/12/2022 09:20:29 12/29/2022 event monitor completed Information not available 01/24/2023 13:51:11 04/14/2023 exercise stress test completed Info rmation not available 04/28/2023 14:25:49 06/14/2023 catheter placement for coronary angiography with left heart catheterization including intraprocedural injection(s) for left ventriculography w/ catheter placement in bypass graft(s) (PROC) completed Information not available 08/30/2024 06:08:39 05/02/2024 US, echocardiogram completed Inform ation not available 08/30/2024 06:04:51 09/02/2024 electrocardiogram completed Informa tion not available 09/02/2024 11:04:16 Procedure Notes None recorded. Medical Equipment None Reported. Allergies Allergen ID Allergen Name Allergen Category Reaction Reaction Severity Criticality Documentation Date Start Date Code Code System Note Provider Name and Address Organization Details Recorded Time 18631 Niaspan medicatio n Not available Not available Not available 03/21/2023 89195 6 RxNorm Sims Mesto [facility], [place] - [facility] 3 09:59:11 45575 Zocor medicatio n Not available Not available Not available 03/21/2023 52378 3 RxNorm Sims M[place] null, [place] - [facility] 3 09:59:11 46467 Pravachol medicatio n Not available Not available Not available 03/21/2023 36350 3 RxNorm Sims M[place] null, [place] - [facility] 3 09:59:11 1694 Substance with sulfonami de structure and antibacte rial mechanism of action (substanc e) medicatio n Not available Not available Not available 03/18/2016 79697 8003 SNOMED Statu s-Act costa Type- Drug intol eranc e Hala Arturo [facility], [facility] 6 08:32:02 Medications Name Sig Start Date Stop Date Status Note LastModified by Organization Details LastModified Time amoxicilli n 500 mg capsule 09/13 completed Not Available Not Available Not Available doxycyclin e hyclate 100 mg capsule TAKE 1 CAPSULE BY MOUTH ONCE DAILY WITH A FULL MEAL 03/18 completed Not Available Not Available Not Available cetirizine 10 mg tablet TAKE ONE TABLET BY MOUTH EVERY NIGHT AT BEDTIME active Not Available Not Available No t Available azithromyc in 250 mg tablet FOLLOW PACKAGE DIRECTIO NS 09/02 completed Not Available Not Available Not Available metoprolol succinate ER 50 mg tablet,ext ended release 24 hr TAKE 1 AND 1/2 TABLETS BY MOUTH EVERY DAY active Not Available Not Available No t Available Lotrisone 1 %-0.05 % topical cream APPLY TO THE AFFECTED AND SURROUND ING AREAS OF SKIN BY TOPICAL ROUTE 2 TIMES PER DAY IN THE MORNING AND EVENING FOR 2 WEEKS 07/03 completed Not Available Not Available Not Available alendronat e 70 mg tablet TAKE 1 TABLET BY MOUTH 1 TIME A WEEK active Not Available Not Available No t Available doxycyclin e hyclate 50 mg capsule TAKE 1 CAPSULE BY MOUTH ONCE DAILY WITH FULL MEAL 07/30 completed Not Available Not Available Not Available clindamyci n HCl 150 mg capsule 09/13 completed Not Available Not Available Not Available penicillin V potassium 500 mg tablet TAKE 1 TABLET BY MOUTH EVERY 8 HOURS UNTIL ALL TAKEN 04/11 completed Not Available Not Available Not Available doxycyclin e monohydrat e 100 mg tablet TAKE 1 TABLET BY MOUTH ONCE DAILY 04/11 completed Not Available Not Available Not Available triamcinol one acetonide 0.1 % topical cream APPLY TO THE AFFECTED AREA TWICE DAILY NEEDED FOR RASH active Not Available Not Available No t Available cefadroxil 500 mg capsule 10/27 completed Not Available Not Available Not Available levothyrox ine 100 mcg tablet TAKE 1 TABLET BY MOUTH EVERY DAY IN THE MORNING active Not Available Not Available No t Available Aspirin Low Strength 81 mg chewable tablet Chew 1 tablet every day by oral route. 09/13 completed Not Available Not Available Not Available famotidine 20 mg tablet TAKE 1 TABLET BY MOUTH TWICE DAILY 10/18 completed Not Available Not Available Not Available doxycyclin e monohydrat e 100 mg capsule TAKE 1 CAPSULE BY MOUTH DAILY 09/02 completed Not Available Not Available Not Available cephalexin 500 mg capsule 09/11 completed Not Available Not Available Not Available pantoprazo le 40 mg tablet,del ayed release TAKE 1 TABLET BY MOUTH ONCE DAILY IN THE MORNING 04/08 completed Not Available Not Available Not Available erythromyc in 5 mg/gram (0.5 %) eye ointment 06/09 [...] completed Not Available Not Available Not Available pravastati n 20 mg tablet TAKE 1 TABLET BY MOUTH EVERY DAY AT BEDTIME active Not Available Not Available No t Available furosemide 20 mg tablet TAKE 1 TABLET BY MOUTH EVERY MORNING NEEDED active as needed Not Available Not Available Not Available azelastine 137 mcg (0.1 %) nasal spray 10/14 completed Not Available Not Available Not Available Aspir-81 mg tablet,del ayed release Take 1 tablet every day by oral route. 07/20 completed Not Available Not Available Not Available fluticason e propionate 50 mcg/actuat ion nasal spray,susp ension SHAKE LIQUID AND USE 1 SPRAY IN EACH NOSTRIL EVERY DAY active Not Available Not Available No t Available clotrimazo le 1 % topical cream APPLY CREAM TOPICALL Y TO AFFECTED AND SURROUND ING AREA TWICE DAILY IN THE MORNING AND IN THE EVENING 03/18 completed Not Available Not Available Not Available metronidaz ole 0.75 % topical gel 09/02 completed Not Available Not Available Not Available levothyrox ine 112 mcg tablet Take 1 tablet every day by oral route. 09/13 completed pharm filled 100mcg, pt will check with PCP Not Available Not Available Not Available amoxicilli n 875 mg-potassi um clavulanat e 125 mg tablet 09/11 completed Not Available Not Available Not Available Co Q-10 200 mg capsule Take 2 capsules every day by oral route. active Not Available Not Available No t Available chlorhexid ine gluconate 0.12 % mouthwash 10/14 completed Not Available Not Available Not Available levothyrox ine Patient unsure of dose 07/20 completed Not Available Not Available Not Available Toprol XL 75 MG once a day 09/11 completed Not Available Not Available Not Available pantoprazo le prn 09/13 completed Not Available Not Available Not Available [...] CAPSULE BY MOUTH DAILY IN THE MORNING 09/02 completed Not Available Not Available Not Available Vitamin D3 125 mcg (5,000 unit) tablet Take 1 tablet every day by oral route. 2019 active Not Available Not Available Not Avai lable Dymista 137 mcg-50 mcg/spray nasal spray USE 1 SPRAY(S) IN EACH NOSTRIL TWICE DAILY 04/27 completed Not Available Not Available Not Available Eliquis 5 mg tablet TAKE 1 TABLET BY MOUTH TWICE DAILY active Not Available Not Available No t Available Fluzone High-Dose 2018-20 (PF) 180 mcg/0.5 mL intramuscu lar syringe PHARMACI ST ADMINIST ERED IMMUNIZA TION ADMINIST ERED AT TIME OF DISPENSI NG 04/08 completed Not Available Not Available Not Available Fluzone High-Dose Quad 2019- (PF) 240 mcg/0.7 mL IM syringe PHARMACI ST ADMINIST ERED IMMUNIZA TION ADMINIST ERED AT TIME OF DISPENSI NG 10/18 completed Not Available Not Available Not Available BinaxNOW COVID-19 Ag Self Test kit Use as Directed on the Package 04/11 completed Not Available Not Available Not Available Vitals Date Recorded Body height Body mass index (BMI) Body weight Heart rate Oxygen saturation Oxygen saturation in Arterial blood by Pulse oximetry Systolic blood pressure Diastolic blood pressure Provider Name and Address Organization Details Last Updated DateTime 1 162.56 cm 33.7 kg/m2 25380.1 8 g 64 /min 98 % 98 % 100 mm[Hg] 60 mm[Hg] Noa Mcgarry [facility] 1 14:08:53 Date Recorded Body height Body mass index (BMI) Body weight Heart rate Respiratory rate Oxygen saturation Oxygen saturation in Arterial blood by Pulse oximetry Systolic blood pressure Diastolic blood pressure Provider Name and Address Organization Details Last Updated DateTime 3 162.56 cm 33.3 kg/m2 07239.9 2 g 82 /min 16 /min 96 % 96 % 122 mm[Hg] 82 mm[Hg] Lowell Tiwari [place] [facility] 3 11:55:55 Date Recorded Body height Body mass index (BMI) Body weight Heart rate Respiratory rate Oxygen saturation Oxygen saturation in Arterial blood by Pulse oximetry Systolic blood pressure Diastolic blood pressure Provider Name and Address Organization Details Last Updated DateTime 3 162.56 cm 33.5 kg/m2 21223.5 1 g 62 /min 16 /min 98 % 98 % 146 mm[Hg] 82 mm[Hg] Lowell Tiwari [facility] 3 10:30:55 Date Recorded Body height Body mass index (BMI) Body weight Heart rate Respiratory rate Oxygen saturation Oxygen saturation in Arterial blood by Pulse oximetry Systolic blood pressure Diastolic blood pressure Provider Name and Address Organization Details Last Updated DateTime 3 162.56 cm 33 kg/m2 78792.7 4 g 89 /min 16 /min 95 % 95 % 132 mm[Hg] 80 mm[Hg] Lowell Tiwari [facility] 3 10:17:42 Date Recorded Body weight Heart rate Oxygen saturation Oxygen saturation in Arterial blood by Pulse oximetry Systolic blood pressure Diastolic blood pressure Provider Name and Address Organization Details Last Updated DateTime 4 00671.5 9 g 59 /min 98 % 98 % 138 mm[Hg] 82 mm[Hg] Karyna Lujan [facility] 4 10:01:17 Date Recorded Body mass index (BMI) Body height Provider Name and Address Organization Details Last Updated DateTime 09/02/2024 31.8 kg/m2 162.56 cm Dany Gallardo MD [address] [place], [address], [facility] 09/02/2024 10:10:24 Social History Question Answer Notes LastModified by Organizat ion Details LastModified Time Tobacco Smoking Status Never Smoker Bethany trivedi [facility] 03/18/2016 15:55:39 Do You Or Have You Ever Used E-cigarettes Or Vape? Never Used Electronic Cigarettes Information not available 10/11/2019 What Was The Date Of Your Most Recent Tobacco Screening? 09/11/2017 Information not available 04/03/2019 Do You Or Have You Ever Used Smokeless Tobacco? Never Used Smokeless Tobacco Information not available 10/11/2019 How Much Tobacco Do You Smoke? No Information not available 10/11/2019 How Many Years Have You Smoked Tobacco? 0 Information not available 09/10/2018 Sex: Unknown Functional Status None recorded. Mental Status None recorded. Family History Relationship Description Onset Age of this Age Resolved Age Notes LastModified by Organization Details LastModified Time Mother Myocardial infarction 78 [email or web address] Not available 03/18 15:55:12 Mother Cerebrovascu lar accident [email or web address] Not available 05/2016 15:55:20 Mother Hypertensive disorder [email or web address] Not available 2015 15:55:30 Notes:No known premature Cor onary artery disease Medical History Condition Response Thyroid Disease Y Arrhythmia Y Valvular Heart Disease Y Hyperlipidemia Y GERD/Reflux Y Gynecological HistoryNo gynecological history recorded. Obstetrics History GPAL:G 0 P 0 0 0 0 Immunizations Vaccine Type Date Status Note Provider Nam e and Address Organization Details Recorded Time Influenza, split virus, quadrivalent, preservative 0 completed Bethany Mesto null, [place] - [facility] 03/21/2023 09:59:49 COVID-19, mRNA, LNP-S, PF, 30 mcg/0.3 mL dose 2 completed Sims Mesto null, [place] [facility] 03/21/2023 09:59:49 pneumococcal polysaccharide PPV23 8 completed Sims Mesto null, [place] [facility] 03/21/2023 09:59:49 Td(adult) unspecified formulation 8 completed Sims M[place] null[place] [facility] 03/21/2023 09:59:49 Pneumococcal conjugate PCV 13 7 completed Sims Mesto null[place] [facility] 03/21/2023 09:59:49 Influenza, high-dose, trivalent, PF 0 completed Sims M[place] [facility] 03/21/2023 09:59:49 Influenza, high-dose, trivalent, PF 8 completed Sims Mesto null[place] [facility] 03/21/2023 09:59:49 Influenza, split virus, trivalent, preservative 12/06/201 6 completed Sims [facility] 03/21/2023 09:59:49 Past Encounters Encounter ID Performer Location Encounter Start Date Encounter Closed Date Diagnosis/Indication Diagnosis SNOMED-CT Code Diagnosis ICD10 Code Diagnosis Note [id number] Dany Gallardo MD [place] [facility] [place] [address] 03/20/2016 14:05:55 03/20/2016 14:53:47 Ventricular premature beats 87257999 I49.3 much better now. Seems to be well compensate d now Hypothyroidism 45705483 E03.9 Mitral valve prolapse 40 9126535 I34.1 Hyperlipidemia 27580939 E78.5 Needs to keep LDL less than 70, and HDL more than 40 [id number] Dnay Gallardo MD [place] [facility] [address] [place] [address] 03/20/2017 15:04:53 03/21/2017 10:31:29 Benign essential hypertension 2317364 I10 Ventricula r premature beats 96699647 I49.3 much better now. Seems to be well compensate d now Hypothyroidism 29371242 E03.9 Mitral valve prolapse 40 4917306 I34.1 Hyperlipidemia 06971204 E78.5 Needs to keep LDL less than 70, and HDL more than 40 Irritable bowel syndrome 53697347 K58.9 Dyspnea on exertion 6084 5006 R06.09 Edema of l ower extremity 339261234 R60.0 [id number] Dany Gallardo MD [place] [address] [place] [address] 09/11/2017 10:24:41 09/11/2017 12:04:24 Hyperlipidemia 29441440 E78.5 Needs to keep LDL less than 70, and HDL more than 40 Will get lipid profile results from PCP Benign ess ential hypertension 1310799 I10 Ventricula r premature beats 20776193 I49.3 much better now. Seems to be well compensate d now Hypothyroidism 79879798 E03.9 Mitral valve prolapse 40 8081477 I34.1 Irritable bowel syndrome 20479818 K58.9 Dyspnea on exertion 6084 5006 R06.09 03-28-2017 Treadmill Nuclear Stress Test 03/28/17: Negative stress test for ischemia. Edema of l ower extremity 767721064 R60.0 [id number] Dany Almousalli , MD [facility] [address] [place] [address] 09/13/2018 09:44:38 09/13/2018 10:43:15 Hyperlipidemia 35368350 E78.5 Needs to keep LDL less than 70, and HDL more than 40 Will get lipid profile results from PCP Benign ess ential hypertension 9588950 I10 Ventricula r premature beats 64801632 I49.3 much better now. Seems to be well compensate d now Hypothyroidism 54073303 E03.9 Mitral valve prolapse 40 5192338 I34.1 Irritable bowel syndrome 67385066 K58.9 Dyspnea on exertion 6084 5006 R06.03-28-2017 Treadmill Nuclear Stress Test 03/28/17: Negative stress test for ischemia. Edema of l ower extremity 971937952 R60.0 Atypical chest pain 1025 64136 R07.89 [id number] Dany Gallardo MD [place] [facility] [place] [address] 10/14/2019 14:25:16 10/16/2019 14:52:39 Hyperlipidemia 95875501 E78.5 Needs to keep LDL less than 70, and HDL more than 40 01/14/19 FLP: TC 193, TR 89, HDL 48. LDL 126 encouragin g patient to take her pravastati n daily and recheck her labs in 6 months Benign ess ential hypertension 9404316 I10 Well-contr olled. Continue current regimen. Ventricula r premature beats 76793089 I49.3 much better now. Seems to be well compensate d now Hypothyroidism 14174611 E03.9 Mitral valve prolapse 40 0294824 I34.1 09/13/18 ECHO: LV chamber size is normal. LV wall thickness is normal. There is normal global systolic function and contractil ity. The estimated left ventricle ejection fraction is 55-60%(nor mal). There is trace tricuspid regurgitat ion. Irritable bowel syndrome 16377089 K58.9 Dyspnea on exertion 6084 5006 R06.03-28-2017 Treadmill Nuclear Stress Test 03/28/17: Negative stress test for ischemia. Edema of l ower extremity 032080183 R60.0 stable. takes lasix 20 mg [id number] Dany Gallardo MD [place] [facility] [address] [place] [address] 04/12/2020 14:04:18 04/12/2020 14:50:22 Hyperlipidemia 49197488 E78.5 Needs to keep LDL less than 70, and HDL more than 40 03/25/2020 LDL is 65 Benign ess ential hypertension 1234844 I10 Well-contr olled. Continue current regimen. Edema of l ower extremity 598794473 R60.0 Continue Lasix, low salt diet and leg elevation. Ventricula r premature beats 47606831 I49.3 much better now. Seems to be well compensate d now Dyspnea on exertion 6084 5006 R06.09 Stable.Ryne admill Nuclear Stress Test 03/28/17: Negative stress test for ischemia. Mitral valve prolapse 40 9897346 I34.1 09/13/18 ECHO: LV chamber size is normal. LV wall thickness is normal. There is normal global systolic function and contractil ity. The estimated left ventricle ejection fraction is 55-60%(nor mal). There is trace tricuspid regurgitat ion. Hypothyroidism 91323637 E03.9 Managed by PCP [id number] Priyanka Rodriguez [facility] [address] [place] [address] 10/18/2020 13:52:22 10/18/2020 14:51:24 Hyperlipidemia 08213484 E78.5 Needs to keep LDL less than 70, and HDL more than 40. 03/25/2020 LDL 65 Continue pravastati n 20mg Will get fasting lipids for follow-up Benign ess ential hypertension 7846218 I10 Well controlled on current regimen Edema of l ower extremity 594357479 R60.0 Improved with LasixLeg elevation and low salt diet advised Ventricula r premature beats 82572427 I49.3 Resolved with metoprolol Dyspnea on exertion 6084 5006 R06.09 StableTDM 03/28/2017 : Negative stress test for ischemia. Mitral valve prolapse 40 5951274 I34.1 Occasional palpitatio ns, otherwise stable. Echo 09/13/2018 : LV chamber size is normal. LV wall thickness is normal. There is normal global systolic function and contractil ity. The estimated left ventricle ejection fraction is 55-60%(nor mal). There is trace tricuspid regurgitat ion. Hypothyroidism 58057012 E03.9 Management by PCP and endocrinol ogist [id number] Dany Gallardo MD [facility] [address] [place] [address] 12/08/2022 11:09:43 12/08/2022 12:24:34 Hyperlipidemia 38230272 E78.5 Needs to keep LDL less than 70, and HDL more than 40. 03/25/2020 LDL 65 Continue pravastati n 20mg Will get fasting lipids for follow-up Benign ess ential hypertension 1904412 I10 Well controlled on current regimen Edema of l ower extremity 673309052 R60.0 Improved with LasixLeg elevation and low salt diet advised Ventricula r premature beats 30463812 I49.3 Resolved with metoprolol Dyspnea on exertion 6084 5006 R06.09 StableTDM 03/28/2017 : Negative stress test for ischemia. Mitral valve prolapse 40 4402306 I34.1 Occasional palpitatio ns, otherwise stable. Echo 09/13/2018 : LV chamber size is normal. LV wall thickness is normal. There is normal global systolic function and contractil ity. The estimated left ventricle ejection fraction is 55-60%(nor mal). There is trace tricuspid regurgitat ion. Hypothyroidism 28039601 E03.9 Management by PCP and endocrinol ogist Palpitations 33000226 R0 0.2 Could be Palpitatio n, will add ASA full dose , continue with [id number] Hour Holter, to evaluate arrhythmia [id number] Janessa Hunter [facility] [address] [place] [address] 04/11/2023 10:20:54 04/11/2023 11:11:04 Hyperlipidemia 97788983 E78.5 Needs to keep LDL less than 70, and HDL more than 40. 03/25/2020 LDL 73 Continue pravastati n 20mg Will get fasting lipids for follow-up Edema of l ower extremity 957888234 R60.0 Improved with LasixLeg elevation and low salt diet advised Ventricula r premature beats 10357370 I49.3 Resolved with metoprolol Dyspnea on exertion 6084 5006 R06.09 StableTDM 03/28/2017 : Negative stress test for ischemia. Mitral valve prolapse 40 2282303 I34.1 Occasional palpitatio ns, otherwise stable. Echo 09/13/2018 : LV chamber size is normal. LV wall thickness is normal. There is normal global systolic function and contractil ity. The estimated left ventricle ejection fraction is 55-60%(nor mal). There is trace tricuspid regurgitat ion. Hypothyroidism 66799835 E03.9 Management by PCP and endocrinol ogist Palpitations 40968825 R0 0.2 monitor showed a fib with rvrstartin g eliquis 5 mg BID Paroxysmal atrial fibrillation 415477559 I48.0 heart monitor showed a fib with RVRstart eliquis 5 mg BID daily and continue with metop Atypical chest pain 1025 73734 R07.89 Treadmill Myoview Stress test, has high Aultman Risk score. Has Known CAD, or CAD risk equivalent . To look for any ischemia. Essential hypertension 11373902 I10 BP is elevated today 180/90 [id number] [address] [place] [address] 04/25/2023 10:11:06 04/25/2023 10:56:54 Hyperlipidemia 53789444 E78.5 Needs to keep LDL less than 70, and HDL more than 40. 03/2023 LDL 55 Continue pravastati n 20mg Will get fasting lipids for follow-up Edema of l ower extremity 690739640 R60.0 Improved with Lasix now it is stabletake lasix as neededLeg elevation and low salt diet advised Ventricula r premature beats 13006613 I49.3 Resolved with metoprolol Dyspnea on exertion 6084 5006 R06.09 positive stress test at the ant area that is small in size The patient will be scheduled for left heart catheteriz ation, with coronary angiogram, and possible PTCA/Stent . The procedure was discussed with the patient, and risks, benefits, and alternativ e options were explained. The patient was given informatio n about heart catheteriz ation and interventi onal procedures . The patient agrees to proceed. TDM 03/28/2017 : Negative stress test for ischemia. Mitral valve prolapse 40 7682835 I34.1 Occasional palpitatio ns, otherwise stable. Echo 09/13/2018 : LV chamber size is normal. LV wall thickness is normal. There is normal global systolic function and contractil ity. The estimated left ventricle ejection fraction is 55-60%(nor mal). There is trace tricuspid regurgitat ion. Hypothyroidism 00747377 E03.9 Management by PCP and endocrinol ogist Palpitations 07798632 R0 0.2 monitor showed a fib with rvrcontinu e eliquis 5 mg BIDstartin g baby aspirin Paroxysmal atrial fibrillation 939383117 I48.0 heart monitor showed a fib with RVRstart eliquis 5 mg BID daily and continue with metop 75 mg daily Atypical chest pain 1025 39248 R07.89 The patient will be scheduled for left heart catheteriz ation, with coronary angiogram, and possible PTCA/Stent . The procedure was discussed with the patient, and risks, benefits, and alternativ e options were explained. The patient was given informatio n about heart catheteriz ation and interventi onal procedures . The patient agrees to proceed. Essential hypertension 45366862 I10 BP is well controlled today [id number] Dany Gallardo MD [facility] [address] [place] [address] 09/02/2024 09:29:43 09/02/2024 10:13:35 Hyperlipidemia 11873222 E78.5 Needs to keep LDL less than 70, and HDL more than 40. 03/2023 LDL 55 Continue pravastati n 20mg Will get fasting lipids for follow-up Edema of l ower extremity 158500457 R60.0 Improved with Lasix now it is stabletake lasix as neededLeg elevation and low salt diet advised Ventricula r premature beats 02696776 I49.3 Resolved with metoprolol Mitral valve prolapse 40 8916652 I34.1 Occasional palpitatio ns, otherwise stable.Had ECHO on 05/02/24 showed Left ventricula r chamber dimension is normal. left ventricula r diastolic function is grade l diastolic dysfunctio n. E/E 11 is mildly elevated. Global longitudin al strain is normal at -21.1%. Hypothyroidism 79640071 E03.9 Management by PCP and endocrinol ogist Palpitations 25797725 R0 0.2 monitor showed a fib with rvrcontinu e eliquis 5 mg BID Paroxysmal atrial fibrillation 032436722 I48.0 heart monitor showed a fib with RVRstart eliquis 5 mg BID daily and continue with metop 75 mg daily Essential hypertension 75444576 I10 BP is well controlled today Health Concerns Section Related Observation LastModified by Organization Detai ls LastModified Time None Recorded Concern Status LastModified by Organization Details LastModified Time None Recorded Advance Directives Directive None Recorded Payers Encounter Date Sequence Insurance Name Policy Number Policy Gao Covered Member ID Gao Member ID Guarantor Name 10/18/2020 2 [employer] Bárbara Bell Barb [id number] Bárbara Bell Barb 10/18/2020 1 MEDICARE B: [employer] MEDICARE Bárbara Bell Barb [id number] Bárbara Bell Barb 12/08/2022 1 MEDICARE B: [employer] MEDICARE Bárbara Bell Barb [id number] Bárbara Bell Barb 04/11/2023 2 [employer] (MEDICARE SUPPLEMENT) Bárbara Daleyst [id number] Bárbara Bell Barb 04/11/2023 1 MEDICARE B: [employer] MEDICARE Bárbara Bell Barb [id number] Bárbara Bell Barb 04/25/2023 2 [employer] (MEDICARE SUPPLEMENT) Bárbara Bell Barb [id number] Bárbara Bell Barb 04/25/2023 1 MEDICARE B: [employer] MEDICARE Bárbara Bell Barb [id number] Bárbara Bell Barb 09/02/2024 2 [employer] (MEDICARE SUPPLEMENT) Bárbara Bell Barb [id number] Bárbara Bell Barb 09/02/2024 1 MEDICARE B: [employer] MEDICARE Bárbara Bell Barb [id number] Bárbara Bell Barb Notes Date Note Type Note Provider Name and Address Organization Details Recorded Time 10/18/2020 text/html 10/18/2020 CC: dyspnea on exertion 70-year-old female with PMH of HTN, GERD, HLD, MVP who presents for follow up. She was last seen in clinic 6 months ago on 04/12/2020. Since then she has been feeling well with no new complaints. She has been seeing GI for some gas issues. She is active but does not exercise. No weight change. Reports her hypothyroidism is stable but is unable to recall dosage of her levothyroxine. She is going to follow-up with an furnace filler who she saw a few years ago. Denies chest pain. No shortness of breath at rest. Reports dyspnea on exertion when going up stairs. No orthopnea. No PND's . Rare dizziness, with postural changes. Occasional palpitation. No syncope or near syncope. Has mild leg swelling. No nausea and vomiting. No side effects from medications. No medication refills needed this visit. Results from this visit, or from the past: 04/10/20 BMP: NA 142, K 5.2, CL 108, CO2 27, GLU 77, BUN 14, CR 0.80 03/25/20 LIPID: TC 126, TR 91, HDL 44, LDL 65 03/25/20 CMP: NA 143, K 5.4, CL 109, CO2 29, GLU 99, BUN 13, CR 0.86, AST 14, ALT 12 04/12/20 EKG: Sinus rhythm, RSR (V1)- [id number]/04/19 EKG: Low voltage, chest leads.EKG 10/13/19:Sinus rhythm,low QRS voltage in precordial leads,normal variant of EKG. Had ECHO done in 09/13/18 showed normal global systolic function , EF 55-60% , trace tricuspid regurgitation . Had ECHO done in 08/31/16 showed mild LVH, Normal LV systolic function , EF 60-65% , grade 1 diastolic dysfunction . Priyanka Rodriguez [facility], [place] - [facility] 10/18/2020 14:22:37 12/08/2022 text/html 12/08/22CC : Arya reina follow up, [id number] female with PMH of HTN, GERD, HLD, MVP was referred for cardiac evaluation. She was last seen in the clinic on 10/18/20, since then she had few episodes of PalpitationShe denies ER visits and hospitalizations since she was last seen. Denies chest pain.Denies shortness of breath at rest. Has mild dyspnea on exertion.No orthopnea. No PNDs.Denies heart palpitations.Denies dizziness. Denies syncope or near syncope.No ankle or leg edema.No major bleeding events.No reported side effects from medications. Taking medications as prescribed with no missed doses.Denies snoring, daytime somnolence and AM headache.*Last LDL was 65 done on 03/24/20.Pt takes pravastatin 20 mg. Previously:She has been seeing GI for some gas issues.She is active but does not exercise. No weight change. Reports her hypothyroidism is stable but is unable to recall dosage of her levothyroxine. She is going to follow-up with an furnace filler who she saw a few years ago. Results from this visit, or from the past: 04/10/20 BMP: NA 142, K 5.2, CL 108, CO2 27, GLU 77, BUN 14, CR 0.80 03/25/20 LIPID: TC 126, TR 91, HDL 44, LDL 65 03/25/20 CMP: NA 143, K 5.4, CL 109, CO2 29, GLU 99, BUN 13, CR 0.86, AST 14, ALT 12 04/12/20 EKG: Sinus rhythm, RSR (V1)- nlqdncjetmynt87/04/19 EKG: Low voltage, chest leads.EKG 10/13/19:Sinus rhythm,low QRS voltage in precordial leads,normal variant of EKG. Had ECHO done in 09/13/18 showed normal global systolic function , EF 55-60% , trace tricuspid regurgitation . Had ECHO done in 08/31/16 showed mild LVH, Normal LV systolic function , EF 60-65% , grade 1 diastolic dysfunction . Dany Gallardo MD [address] [place], [address], [facility] - [facility] 12/08/2022 12:19:57 04/11/2023 text/html 04/11/23CC : Car diac follow up chest pain and dyspnea on [id number]-[id number] female with PMH of Hypertension , GERD, Hyperlipidemia , and MVP is here for 3 months follow up. She was last seen in the clinic on 12/08, since then she is having occasional numbness of the left and right arm that last for few minuets. Her monitor showed a fib with RVR. *Last LDL was 73 done on 04/01, Pt takes pravastatin 20 mg.She denies ER visits and hospitalizations since she was last seen. Today reports:Denies chest pain.Denies shortness of breath at rest. Has mild dyspnea on exertion.No orthopnea. No PNDs.Denies heart palpitations.Denies dizziness. Denies syncope or near syncope.No ankle or leg edema.No major bleeding events.No reported side effects from medications. Taking medications as prescribed with no missed doses.Denies snoring, daytime somnolence and AM headache.*Last LDL was 73 done on 04/01, Pt takes pravastatin 20 mg. *Had 72 hr Event monitor on 12/29/22 showed Paroxysmal Atrial Fibrillation. Previously: Sh had few episodes of Palpitation She has been seeing GI for some gas issues.She is active but does not exercise. No weight change. Reports her hypothyroidism is stable but is unable to recall dosage of her levothyroxine. She is going to follow-up with an furnace filler who she saw a few years ago. Results from this visit, or from the past: 04/10/20 BMP: NA 142, K 5.2, CL 108, CO2 27, GLU 77, BUN 14, CR 0.80 03/25/20 LIPID: TC 126, TR 91, HDL 44, LDL 65 03/25/20 CMP: NA 143, K 5.4, CL 109, CO2 29, GLU 99, BUN 13, CR 0.86, AST 14, ALT 12 04/12/20 EKG: Sinus rhythm, RSR (V1)- [id number]/04/19 EKG: Low voltage, chest leads.EKG 10/13/19:Sinus rhythm,low QRS voltage in precordial leads,normal variant of EKG. Had ECHO done in 09/13/18 showed normal global systolic function , EF 55-60% , trace tricuspid regurgitation . Had ECHO done in 08/31/16 showed mild LVH, Normal LV systolic function , EF 60-65% , grade 1 diastolic dysfunction . Janessa Hunter [facility], [place] - [facility] 04/13/2023 14:07:20 04/25/2023 text/html 04/25/23CC : Car diac follow up dyspnea on [id number]-vxz female with PMH of Hypertension , GERD, Hyperlipidemia , and MVP is here for 2 week follow up. She was last seen in the clinic on 04/11/23, since then she is doing well. She denied chest pain but reported occasional neck pain. She denied dyspnea on exertion. *Last LDL was 55 done on 03/17/23.Pt takes pravastatin 20 mg. She denies ER visits and hospitalizations since she was last seen. Today reports:Denies chest pain.Denies shortness of breath at rest. Has mild dyspnea on exertion.No orthopnea. No PNDs.Denies heart palpitations.Denies dizziness. Denies syncope or near syncope.No ankle or leg edema.No major bleeding events.No reported side effects from medications. Taking medications as prescribed with no missed doses.Denies snoring, daytime somnolence and AM headache.*Last LDL was 55 done on 03/17/23.Pt takes pravastatin 20 mg. Previously: She is having occasional numbness of the left and right arm that last for few minuets. *Had 72 hr Event monitor on 12/29/22 showed Paroxysmal Atrial Fibrillation. Sh had few episodes of Palpitation She has been seeing GI for some gas issues. She is active but does not exercise. No weight change. Reports her hypothyroidism is stable but is unable to recall dosage of her levothyroxine. She is going to follow-up with an furnace filler who she saw a few years ago. Results from this visit, or from the past: 04/10/20 BMP: NA 142, K 5.2, CL 108, CO2 27, GLU 77, BUN 14, CR 0.80 03/25/20 LIPID: TC 126, TR 91, HDL 44, LDL 65 03/25/20 CMP: NA 143, K 5.4, CL 109, CO2 29, GLU 99, BUN 13, CR 0.86, AST 14, ALT 12 04/12/20 EKG: Sinus rhythm, RSR (V1)- lbjeoiezlyqjo73/04/19 EKG: Low voltage, chest leads.EKG 10/13/19:Sinus rhythm,low QRS voltage in precordial leads,normal variant of EKG. Had ECHO done in 09/13/18 showed normal global systolic function , EF 55-60% , trace tricuspid regurgitation . Had ECHO done in 08/31/16 showed mild LVH, Normal LV systolic function , EF 60-65% , grade 1 diastolic dysfunction . HANNAH trivedi [place] - [facility] 04/25/2023 10:47:30 09/02/2024 text/html 09/02/24CC : Car diac follow up , dyspnea on [id number]-[id number] female with PMH of Hypertension , GERD, Hyperlipidemia , and MVP is here for 6 month follow up with ECHO and Cardiac cath results. She was last seen in the clinic on 04/25/23, since then she Had ECHO on 05/02/24 showed Left ventricular chamber dimension is normal. left ventricular diastolic function is grade l diastolic dysfunction. E/E 11 is mildly elevated. Global longitudinal strain is normal at -21.1%.She denies ER visits and hospitalizations since she was last seen. Today reports:Denies chest pain.Denies shortness of breath at rest. Has mild dyspnea on exertion.No orthopnea. No PNDs.Denies heart palpitations.Denies dizziness. Denies syncope or near syncope.No ankle or leg edema.No major bleeding events.No reported side effects from medications. Taking medications as prescribed with no missed doses.Denies snoring, daytime somnolence and AM headache.*Last LDL was 55 done on 04/20/23.Pt takes pravastatin 20 mg. *Had ECHO on 05/02/24 showed Left ventricular chamber dimension is normal. left ventricular diastolic function is grade l diastolic dysfunction. E/E 11 is mildly elevated. Global longitudinal strain is normal at -21.1%. left atrial chamber dimension is moderately enlarged. There is mild aortic valve sclerosis. There is mild aortic valve regurgitation. There is mild mitral valve regurgitation. There is mild tricuspid valve regurgitation. No pulmonary hypertension, estimated pulmonary arterial systolic pressure is 37 mmHg. *Had Cardiac cath on 06/14/23 revealed Angiographically no significant coronary artery disease. Normal left ventricular systolic function with an ejection fraction of 55%. Previously:*Had 72 hr Event monitor on 12/29/22 showed Paroxysmal Atrial Fibrillation. Reports her hypothyroidism is stable but is unable to recall dosage of her levothyroxine. She is going to follow-up with an furnace filler who she saw a few years ago. Results from this visit, or from the past: 04/10/20 BMP: NA 142, K 5.2, CL 108, CO2 27, GLU 77, BUN 14, CR 0.80 03/25/20 LIPID: TC 126, TR 91, HDL 44, LDL 65 03/25/20 CMP: NA 143, K 5.4, CL 109, CO2 29, GLU 99, BUN 13, CR 0.86, AST 14, ALT 12 04/12/20 EKG: Sinus rhythm, RSR (V1)- [id number]/04/19 EKG: Low voltage, chest leads.EKG 10/13/19:Sinus rhythm,low QRS voltage in precordial leads,normal variant of EKG. Had ECHO done in 09/13/18 showed normal global systolic function , EF 55-60% , trace tricuspid regurgitation . Had ECHO done in 08/31/16 showed mild LVH, Normal LV systolic function , EF 60-65% , grade 1 diastolic dysfunction . Dany Gallardo MD [address] [place], [address], [facility] - [facility] 09/02/2024 10:11:07 OBGyn Episode No OBEpisode recorded.
== END 2024-12-18 08:02 | disposition home or self-care (01) ==
PROVIDERS: PCP Internal Medicine; Visit Provider Nurse Practitioner
DX: Z12.31 Encounter for screening mammogram for malignant neoplasm of breast (principal)
CPT/HCPCS: 77063; 77067

== ENCOUNTER 2025-01-05 07:52 | Outpatient (CLI) | payer MEDICARE, SELFPAY ==
--- NOTE | ~2025-01-05 | DEXA_ITS ---
Bone Density Report Name: EVITA BARILLAS Age: 74 Sex: Female Ethnicity: White Date of : 1950 Indication: postmenopausal; screening for osteoporosis; parental hip fracture; height loss; Referring Provider: DONG, NURIS Study: Bone densitometry was performed. Exam Date: January 05, 2025 Accession number: [id number] Bone Density: Region BMD T-score Z-score Classification AP Spine(L1-L4) 1.302 2.3 4.8 Normal Femoral Neck (Left) 0.733 -1.0 1.1 Normal Total Hip (Left) 0.962 0.2 2.1 Normal Femoral Neck (Right) 0.711 -1.2 0.9 Osteopenia Total Hip (Right) 0.915 -0.2 1.7 Normal Total Hip Mean 0.939 0.0 1.9 Normal World Health Organization criteria for BMD impression classify patients as: Normal (T-score at or above -1.0), Osteopenia (T-score between -1.0 and -2.5), or Osteoporosis (T-score at or below -2.5). 10-year Fracture Risk: FRAX not reported because: Treated for osteoporosis Clinical Information Provided by Patient: Parent has had a hip fracture Is being treated for osteoporosis Has used the following medications: Fosamax (i.e. alendronate), HRT (i.e. estrogen/hormone therapy), Vitamin D, Calcium Patient maximum height was 67 Menopause Age: 48 No regular weight bearing exercise Does not regularly consume dairy products Drinks caffeinated beverages Onset of menses at age 11 Number of children 2 Impression: The patient has low bone mass, based on the Right Femoral Neck T-score. The patient has risk factors, including: parental hip fracture. Discussion: It is important to ask patients whether they are taking their medications and to encourage continued and appropriate compliance with their osteoporosis therapies to reduce fracture risk. It is also important to review their risk factors and encourage appropriate calcium and vitamin D intakes, exercise, fall prevention and other lifestyle measures. Follow-Up: Consider a repeat BMD and Vertebral Fracture Assessment (VFA) exam in 2 years or sooner if medically necessary, to reassess this patient's status. Reported by: COCO on 01/05/2025 8:27:00 AM. Reviewed, dictated and finalized at location Raj PIMENTEL
--- OUTSIDE RECORDS SUMMARY | 2025-01-05 07:58 | XMS_ITS | Clinical Summary ---
Author Organization [facility] Address [address] [place] [id number] Care Team Providers Care Experienced Truck Driver Name Role Phone Unavailable Primary Care Provider [...] Td Vaccines ( 1 - Tdap) 02/20/1967 Pneumococcal Vaccine: 50+ Ye ars (1 of 1 - PCV) 02/20/1998 Zoster Vaccines (1 of 2) 02/20/1998 Dexa Scan (General) 02/20/2013 RSV Immunization or 60+ Years (1 - 1-dose 75+ series) 02/20/2023 COVID-19 Vaccine (2023-2 5 season) 2024 Meningococcal B Vaccine Aged Out No l onger eligible based on patient's age to complete this topic Meningococcal Vaccine Aged Out No edwige chelita eligible based on patient's age to complete this topic RSV Immunizations Under 20 Months Aged Out No longer eligible based on patient's age to complete this topic
--- OUTSIDE RECORDS SUMMARY | 2025-01-05 07:58 | XMS_ITS | Data Portability ---
Author Organization [facility] Address [address] [place] [address] Assessment Encounter Date Assessment Date Assessment LastModified [...] recorded. Imaging US, breast, unilateral 2023 024 [facility], [address], [place], [address], 4 17:09:26 MAMMO, diagnostic, digital, unilateral 2023 024 [facility], [address], [place], [address], 4 17:09:26 Medication Orders None recorded. Patient TargetsNo targets recorded. Patient InstructionsNo instructions recorded. Reason for Referral None Reported. Results Created Date Observation Date Name Description Value Unit Range Abnormal Flag Note LastModifiedBy Organization Detail LastModifiedTime 07/07/2007/07/2022 MAMMO , scree delores, bilat eral No observ ation record ed. [email or web address] [facility] [address], [place], [address], 07/10/2022 09:19:21 03/18/2003/17/2024 MAMMO , diagn ostic , digit al, unila teral No observ ation record ed. [address], [place], [address], 03/21/2024 11:43:29 03/18/20 24 03/17/2024 US, breas t, unila teral No observ ation record ed. [address], [place], [address], 03/21/2024 11:43:29 12/19/1912/18/2024 imagi ng/di agnos tic resul t No observ ation record ed. [address], [place], [address], 01/05/2025 04:05:16 Result Notes None recorded. Problems Name Problem SNOMED Code Status Onset Date Resolution Date Notes Provider Name and Address Organization Details Recorded Time Essential hypertension 13179168 Active 2021 Michelle Burgos MD [address], [place], [address], [facility] 2 10:14:48 Hypothyroidi sm 13482575 Active 2021 Michelle Burgos MD [address], [place], [address], [facility] 2 10:14:59 Hypercholest erolemia 72781625 Active 2021 Michelle Burgos MD [address], [place], [address], [facility] 2 10:15:06 Osteopenia 398299267 Active 2021 Michelle Burgos MD [address], [place], [address], [facility] 2 10:39:13 Problem Notes None recorded. Procedures Surgical History Date Name Laterality Status Provider Name and Address Organization Details Recorded Time 09/10/19 22 Most Recent Bone Density completed [facility] 05/02/2022 10:13:14 09/10/19 19 Date of Last Colonoscopy completed [facility] 05/02/2022 10:13:04 09/10/18 55 tonsillectomy completed [facility] 05/02/2022 10:15:00 Imaging Results Imaging Date Name Status LastModified by Trudy beltran Details LastModified Time 07/07/2022 MAMMO, screening, bilateral completed [id number], [address], 07/10/2022 09:19:21 03/17/2024 MAMMO, diagnostic, digital, unilateral completed [address], [address], 03/21/2024 11:43:29 03/17/2024 US, breast, unilateral completed [address], [address], 03/21/2024 11:43:29 12/18/2024 imaging/diagnos tic result active [address], [address], 01/05/2025 04:05:16 Procedure Notes None recorded. Medical Equipment None Reported. Allergies Allergen ID Allergen Name Allergen Category Reaction Reaction Severity Criticality Documentation Date Start Date Code Code System Note Provider Name and Address Organization Details Recorded Time 78574 Substance with sulfonami de structure and antibacte rial mechanism of action (substanc e) medicatio n Not available Not available Not available 05/02/2022 48837 8003 SNOMED [facility] 2 10:03:14 Medications Name Sig Start Date Stop [...] Updated DateTime 05/02/2022 162.56 cm 34 kg/m2 66645.29 g 117 mm[Hg] 73 mm[Hg] Pauly [facility] 2 10:09:07 Date Recorded Body height Body mass index (BMI) Body weight Systolic blood pressure Diastolic blood pressure Provider Name and Address Organization Details Last Updated DateTime 02/25/2024 162.56 cm 30.6 kg/m2 67195.44 g 136 mm[Hg] 80 mm[Hg] Rohini Daigle [facility] 4 11:26:37 Social History Question Answer Notes LastModified by Organizat ion Details LastModified Time Tobacco Smoking Status Never Smoker Pauly Osman farooq, [facility] 05/02/2022 10:09:40 What Is Your Level Of Alcohol Consumption? None Information not available 05/02/2022 In The 14 Days Before Symptom Onset, Have You Had Close Contact With A Laboratory-confirm ed COVID-19 While That Case Was Ill? No [email or web address] Information n ot available 02/25/2024 In The [...] (Food, seasonal, environmental ) N Other N Breast Cancer N Drug/Latex Allergies/Reactions N Blood Transfusion N Dermatologic Disorders N Lung Disease N Defects or Inherited Disease N Breast Problem N Gestational Diabetes N Hematologic disorders N Anesthesia Complications N History of STI N Deep Vein Thrombosis N Polycystic ovary syndrome N Anxiety Disorder N Autoimmune disease N Arthritis N Infertility N Polyps N Acid Reflux (GERD) N History of abnormal pap N Cancer N Stroke N Varicosities N Neurologic/Epilepsy N Endometriosis N High Cholesterol Y Headaches N Fibromyalgia N Kidney Disease N Heart Problems Y Kidney or Bladder Problems N Thyroid Problems Y GI Problems N Eating Disorder N Anemia [...] SNOMED-CT Code Diagnosis ICD10 Code Diagnosis Note [id number] Michelle Burgos MD [facility] [address] [address] 05/02/2022 10:00:00 05/02/2022 10:58:10 Gynecologic examination 58923234 Z01.419 Osteopenia 568369626 M85 .80 [id number] LUIS Negrete [facility] [address] [address] 06/13/2023 10:42:48 06/14/2023 16:39:21 Left without being seen 9528453732 9102 Z53.21 [id number] LUIS Negrete [facility] [address] [address] 02/25/2024 10:57:00 02/25/2024 12:43:29 Lesion of left nipple 1699471241 1300223 N64.59 warm compress to areano s/sx's of [...] ID Guarantor Name 05/02/2022 1 MEDICARE B: [employer]RO[employer] MEDICARE Bárbara Bell Barb [id number] Bárbara Barb 05/02/2022 3 [employer] (MEDICARE SUPPLEMENT) Bárbara Barb [id number] Bárbara Barb 06/13/2023 1 MEDICARE B: [employer] RAILRO[employer] MEDICARE Bárbara Bell Barb [id number] Bárbara Barb 06/13/2023 3 [employer] (MEDICARE SUPPLEMENT) Bárbara Barb [id number] Bárbara Barb 02/25/2024 1 MEDICARE B: [employer]RO[employer] MEDICARE Bárbara Bell Barb [id number] 6 Bárbara Barb 02/25/2024 3 [employer] (MEDICARE SUPPLEMENT) Bárbara Barb [id number] Bárbara Rust Notes Date Note Type Note Provider Name and Address Organization Details Recorded Time 05/02/2022 text/html Patient is a 72y o who presents for an annual exam. No concerns.last pap-2018 all normal for eons mammo-2020, has order from PCPcolonoscopy-2019, 5 yearsdexa-2021 osteopeniamenopause-[age]yo, no bleedingsexually penpmn-kkrvndlbja-qfq ercise-y, walks 3x per weekdepression-denies domestic violence-deniestobacc h-wecnhqavc-n Michelle Burgos MD [address], [place], [address], [facility] 05/02/2022 10:41:56 02/25/2024 text/html 74yopresents for evaluation of breast lesionnoticed small white bump on left nipple about 2 weeks agopinpoint sizedno pain/redness/drainage /or nipple dischargeno n/v/f, no flu-like symptoms mammogram last 12/2022 : normal per pt LUIS Negrete [address], [place], [address], [facility] 02/25/2024 12:38:47 OBGyn Episode Ob Episode Information Episode Created Date Number of Fetuses Patient Bloodtype Patient rh Status Prepregnancy Weight lbs Domestic Partner Domestic Partner Phone Father Name Physician Scientist Status 05/02/20 22 1 CLOSED Fetus Data First Name Last Name Admitted to NICU Weight (g) Sex Living Outcome Pediatric Complications Fetus ID Race Codes Race Delivery Type M [id number] Vaginal Delivery Stuart Calculation Initial Stuart Date [...] Domestic Partner Domestic Partner Phone Father Name Physician Scientist Status 05/02/20 22 1 CLOSED Fetus Data First Name Last Name Admitted to NICU Weight (g) Sex Living Outcome Pediatric Complications Fetus ID Race Codes Race Delivery Type M [id number] Vaginal Delivery Stuart Calculation Initial Stuart Date [...] Post Complications Tubal Sterilization Discharge Date Comments 6 Discharge Information Feeding Method Contraceptive Method Maternal HG B and HCT Levels
--- OUTSIDE RECORDS SUMMARY | 2025-01-05 07:59 | XMS_ITS | Clinical Summary ---
Author Organization [facility] [place] Address [address] [address] [place] [address] Care Team Providers Care Antenna Machine Operator Name Role Phone Adela Lu MD Primary Care Provider [phone] Allergies Active Allergy Reactions Criticality Noted Date [...] daily. Active fluticasone propionate (FLONASE) 50 mcg/spray [place], Suspension nasal inhaler Administer 2 Sprays in [...] mouth 2 times daily. 180 Tablet 2 Active Active Problems Patient Care Coordination No te Formatting of this note migh t be different from the original. Radiation Protection Specialist: Dany Gallardo MD Problem Noted Date Diagnosed [...] External Device Data STL ABSTRACTION Provider, Abstract from Last 3 Months Social History Tobacco [...] Health Maintenance Due Date Last Done Comments ZOSTER VACCINE (1 of 2) 02/20/1998 DTAP/TDAP/TD VACCINES (1 - Tdap) 07/04/2008 07/03/20 08 RSV VACCINE (60+ or ) (1 - 1-dose 75+ series) 02/20/2023 INFLUENZA VACCINE (#1) 2024 , 11/06/2019, 08/28/2018, Additional history exists OSTEOPOROSIS SCREENING 12/07/2026 12/07/2021, 2019 PNEUMOCOCCAL VACCINE 50+ YEARS Completed 09/05/2018 , 04/04/2017 COLORECTAL SCREENING Discontinued 06/09/2020, 06/09/2020, 09/07/2015, Additional history exists Colorectal Cancer Screening Discontinued FIT-DNA Q 3 years Discontinued FIT/FOBT Q 1 year Discontinued Flex Sig/CT Colonography Q 5 years Discontinued Medical Devices Implanted Type Area [employer] Architect Device Identifier Shelf Expiration Date Model / Serial / Lot Lens Bilateral: Eye Insurance A[employer] MEDICARE SUPP AESSI Advance Directives For more information, please contact: [phone] * Full Code (Latest Code Status on File) Date Activated Date Inactivated Comments 06/14/2023 10:18 AM 06/14/2023 6:46 PM Care Teams Antenna Machine Operator Relationship Specialty Start Date End Date Adela Lu MD [address] [address] PCP - General Internal Medicine 06/27/23
--- OUTSIDE RECORDS SUMMARY | 2025-01-05 07:59 | XMS_ITS | Data Portability ---
Author Organization [place] - [facility] OFFICE Address [facility] [place] [address] Care Team Providers Care Pump Service Supervisor Name Role Phone NURIS UMANA Primary Care [...] None recorded. Imaging electroca rdiogram 2022 023 LEONARDO Not available 12/08/2022 12:28:05 Medication Orders Eliquis 5 mg tablet 2022 023 [place] [id number], [address] [facility], [place], [place], [id number], 04/25/2023 10:47:31 losartan 25 mg tablet 2022 023 [facility], [address] [facility], [place], [address], 04/11/2023 11:05:45 Eliquis 5 mg tablet 2022 023 LEONARDO [facility], [address] [facility], [place], [address], 04/11/2023 11:05:32 Patient TargetsNo targets recorded. Patient Instructions Encounter Date Encounter Id Patient Instructions Last Modified By Organization Details Last Modified Time 10/18/2020 [id number] heart valve disease: care instructions [email or web address] Not available 10/18/2020 14:22:32 mitral valve prolapse: care instructions [email or web address] Not available 10/18/2020 14:22:32 premature heartbeat: care instructions [email or web address] Not available 10/18/2020 14:22:32 hypothyroidism: care instructions [email or web address] Not available 10/18/2020 14:22:32 learning about low-fat eating Not available 10/18/2020 14:22:32 high cholesterol : care instructions [email or web address] Not available 10/18/2020 14:22:32 Exercise advised Low cholesterol diet advised Low sodium diet advised [email or web address] Not available 10/18/2020 14:15:02 Patient was seen and evaluated by Priyanka Rodriguez [facility]. Plan of care was discussed with collaborating physician and note cosigned by Dr. Dany Gallardo. [email or web address] Not available 10/18/2020 14:21:31 04/25/2023 [id number] Low cholesterol diet advised Low sodium diet advised. [email or web address] Not available 04/25/2023 10:46:26 09/02/2024 [id number] Weight loss 20 pounds Exercise advised Low [...] ation record ed. Dany Gallardo MD [address], [place], [address], 12/08/2022 12:28:05 12/12/19 23 03/28/2022 elect rocar [...] Address Organization Details Recorded Time Benign hypertension 30951621 Active Bethany trivedi [place] - [facility] 3 14:58:01 Body mass index 30+ - obesity 234687346 Active 2018 Bethany trivedi [place] [facility] 3 09:59:43 Microscopic hematuria 737021480 Active 2021 Bethany trivedi [place] [facility] 3 09:59:43 Allergic rhinitis caused by pollen 02478783 Active 2021 Bethany [place] [facility] 3 09:59:43 Low back pain 872777288 Active [place] [facility] 3 09:59:43 Menopause present 246402262 Active [place] [facility] 3 09:59:43 Diverticulitis 805318152 Active [place] [facility] 3 09:59:43 Thyroid function tests abnormal 741815401 Active 2019 Sims [place] [facility] 3 09:59:43 Osteopenia 879748907 Active 2019 Sims [place] [facility] 3 09:59:43 Vitamin D deficiency 12988378 Active 2018 Sims [place] [facility] 3 09:59:43 Non-toxic multinodular goiter 68292466 Active [place] [facility] 3 09:59:43 Osteoarthritis 221749608 Active 2016 Sims [place] [facility] 3 09:59:43 Mitral valve regurgitation 10279213 Active [place] [facility] 3 09:59:43 Left ventricular hypertrophy 75144776 Active 2017 Sims [place] [facility] 3 09:59:43 Hyperlipidemia 61073039 Active 2015 Sims [place] [facility] 3 14:58:08 Chest pain 05423132 Active 2015 Sims [place] [facility] 3 09:59:43 Mitral valve prolapse 621877009 Active 2015 Sims [place] [facility] 3 09:59:43 Hypothyroidism 52268858 Active 2015 Sims [place] [facility] 3 14:58:10 Ventricular premature beats 08458806 Active 2015 Sims [place] [facility] 3 09:59:43 Gastroesophage al reflux disease 271914994 Active 2015 Sims [place] [facility] 3 09:59:43 Irritable bowel syndrome 95476805 Active 2015 Sims [place] [facility] 3 09:59:43 Benign essential hypertension 8737114 Active 2016 Sims [place] [facility] 3 14:57:54 Edema of lower extremity 306961828 Active 2016 Sims [place] [facility] 3 09:59:42 Dyspnea on exertion 05885875 Active 2019 Sims [place] [facility] 3 09:59:43 Problem Notes None recorded. Procedures Surgical History Date Name Laterality Status Provider Name and Address Organization Details Recorded Time Tonsillecto my/Adenoide ctomy completed Sims Mariselamakayla [place] - [facility] 03/18/2016 15:54:20 Imaging Results Imaging Date Name Status LastModified by Organization Details LastModified Time 10/18/2020 electrocardiogram completed Informa tion not available 10/27/2020 15:43:06 12/08/2022 electrocardiogram completed Dany Fisher MD [address], [place], [address], 12/08/2022 12:28:05 03/28/2022 electrocardiogram completed Informa tion [...] Name and Address Organization Details Recorded Time 60679 Niaspan medicatio n Not available Not available Not available 03/21/2023 37206 6 RxNorm Sims Mesto [facility], [place] - [facility] 3 09:59:11 49471 Zocor medicatio n Not available Not available Not available 03/21/2023 40977 3 RxNorm Sims [place] [facility] 3 09:59:11 57622 Pravachol medicatio n Not available Not available Not available 03/21/2023 64799 3 RxNorm Sims [place] [facility] 3 09:59:11 1694 Substance with sulfonami de structure and antibacte rial mechanism of action (substanc e) medicatio n Not available Not available Not available 03/18/2016 31796 8003 SNOMED Statu s-Act costa Type- Drug intol eranc e Hala Arturo [facility], [facility] 6 08:32:02 Medications Name [...] Updated DateTime 1 162.56 cm 33.7 kg/m2 92996.1 8 g 64 /min 98 % 98 % 100 mm[Hg] 60 mm[Hg] Noa Mcgarry [facility] 1 14:08:53 Date Recorded Body height Body mass index (BMI) Body weight Heart rate Respiratory rate Oxygen saturation Oxygen saturation in Arterial blood by Pulse oximetry Systolic blood pressure Diastolic blood pressure Provider Name and Address Organization Details Last Updated DateTime 3 162.56 cm 33.3 kg/m2 68155.9 2 g 82 /min 16 /min 96 % 96 % 122 mm[Hg] 82 mm[Hg] Lowell Tiwari [place] [facility] 3 11:55:55 Date Recorded Body height Body mass index (BMI) Body weight Heart rate Respiratory rate Oxygen saturation Oxygen saturation in Arterial blood by Pulse oximetry Systolic blood pressure Diastolic blood pressure Provider Name and Address Organization Details Last Updated DateTime 3 162.56 cm 33.5 kg/m2 93157.5 1 g 62 /min 16 /min 98 % 98 % 146 mm[Hg] 82 mm[Hg] Lowell Tiwari [facility] 3 10:30:55 Date Recorded Body height Body mass index (BMI) Body weight Heart rate Respiratory rate Oxygen saturation Oxygen saturation in Arterial blood by Pulse oximetry Systolic blood pressure Diastolic blood pressure Provider Name and Address Organization Details Last Updated DateTime 3 162.56 cm 33 kg/m2 56636.7 4 g 89 /min 16 /min 95 % 95 % 132 mm[Hg] 80 mm[Hg] Lowell Tiwari [facility] 3 10:17:42 Date Recorded Body weight Heart rate Oxygen saturation Oxygen saturation in Arterial blood by Pulse oximetry Systolic blood pressure Diastolic blood pressure Provider Name and Address Organization Details Last Updated DateTime 4 38809.5 9 g 59 /min 98 % 98 % 138 mm[Hg] 82 mm[Hg] Karyna Lujan [facility] 4 10:01:17 Date Recorded Body mass index (BMI) Body height Provider Name and Address Organization Details Last Updated DateTime 09/02/2024 31.8 kg/m2 162.56 cm Dany Gallardo MD [address] [place], [address], [facility] 09/02/2024 10:10:24 Social History Question Answer Notes LastModified by Organizat ion Details LastModified Time Tobacco Smoking Status Never Smoker Bethany trivedi [facility] 03/18/2016 15:55:39 Do You Or Have You [...] onary artery disease Medical History Condition Response Valvular Heart Disease Y Hyperlipidemia Y Thyroid Disease Y Arrhythmia Y GERD/Reflux Y Gynecological HistoryNo gynecological history recorded. Obstetrics History GPAL:G 0 P 0 0 0 0 Immunizations Vaccine Type Date Status Note Provider Nam e and Address Organization Details Recorded Time Influenza, split virus, quadrivalent, preservative 0 completed Bethany M[place] - [facility] 03/21/2023 09:59:49 COVID-19, mRNA, LNP-S, PF, 30 mcg/0.3 mL dose 2 completed Sims [place] [facility] 03/21/2023 09:59:49 pneumococcal polysaccharide PPV23 8 completed Sims [place] [facility] 03/21/2023 09:59:49 Td(adult) unspecified formulation 8 completed Sims [place] [facility] 03/21/2023 09:59:49 Pneumococcal conjugate PCV 13 7 completed Sims [place] [facility] 03/21/2023 09:59:49 Influenza, high-dose, trivalent, PF 0 completed Sims [place] [facility] 03/21/2023 09:59:49 Influenza, high-dose, trivalent, PF 8 completed Sims [place] [facility] 03/21/2023 09:59:49 Influenza, split virus, trivalent, preservative 12/06/201 6 completed Sims [facility] 03/21/2023 09:59:49 Past Encounters Encounter ID Performer Location Encounter Start Date Encounter Closed Date Diagnosis/Indication Diagnosis SNOMED-CT Code Diagnosis ICD10 Code Diagnosis Note [id number] Dany Gallardo MD [facility] [place] [address] 03/20/2016 14:05:55 03/20/2016 14:53:47 Ventricular premature beats 47164462 I49.3 much better now. Seems to be well compensate d now Hypothyroidism 67202547 E03.9 Mitral valve prolapse 40 0876184 I34.1 Hyperlipidemia 71927675 E78.5 Needs to keep LDL less than 70, and HDL more than 40 [id number] Dany Gallardo MD [facility] [address] [place] [address] 03/20/2017 15:04:53 03/21/2017 10:31:29 Benign essential hypertension 0549942 I10 Ventricula r premature beats 91824112 I49.3 much better now. Seems to be well compensate d now Hypothyroidism 82964208 E03.9 Mitral valve prolapse 40 4697224 I34.1 Hyperlipidemia 81431460 E78.5 Needs to keep LDL less than 70, and HDL more than 40 Irritable bowel syndrome 27831199 K58.9 Dyspnea on exertion 6084 5006 R06.09 Edema of l ower extremity 548671473 R60.0 [id number] Dany Gallardo MD [facility] [address] [place] [address] 09/11/2017 10:24:41 09/11/2017 12:04:24 Hyperlipidemia 90609744 E78.5 Needs to keep LDL less than 70, and HDL more than 40 Will get lipid profile results from PCP Benign ess ential hypertension 1068470 I10 Ventricula r premature beats 81506887 I49.3 much better now. Seems to be well compensate d now Hypothyroidism 07731431 E03.9 Mitral valve prolapse 40 3158675 I34.1 Irritable bowel syndrome 83592107 K58.9 Dyspnea on exertion 6084 5006 R06.09 03-28-2017 Treadmill Nuclear Stress Test 03/28/17: Negative stress test for ischemia. Edema of l ower extremity 064198360 R60.0 [id number] Dany Almousalli , MD [facility] [address] [place] [address] 09/13/2018 09:44:38 09/13/2018 10:43:15 Hyperlipidemia 75774956 E78.5 Needs to keep LDL less than 70, and HDL more than 40 Will get lipid profile results from PCP Benign ess ential hypertension 3545765 I10 Ventricula r premature beats 40119689 I49.3 much better now. Seems to be well compensate d now Hypothyroidism 75277222 E03.9 Mitral valve prolapse 40 0099672 I34.1 Irritable bowel syndrome 04128744 K58.9 Dyspnea on exertion 6084 5006 R06.03-28-2017 Treadmill Nuclear Stress Test 03/28/17: Negative stress test for ischemia. Edema of l ower extremity 159802504 R60.0 Atypical chest pain 1025 81227 R07.89 [id number] Dany Gallardo MD [facility] [place] [address] 10/14/2019 14:25:16 10/16/2019 14:52:39 Hyperlipidemia 55591101 E78.5 Needs to keep LDL less than 70, and HDL more than 40 01/14/19 FLP: TC 193, TR 89, HDL 48. LDL 126 encouragin g patient to take her pravastati n daily and recheck her labs in 6 months Benign ess ential hypertension 9350514 I10 Well-contr olled. Continue current regimen. Ventricula r premature beats 66409716 I49.3 much better now. Seems to be well compensate d now Hypothyroidism 57896806 E03.9 Mitral valve prolapse 40 1125344 I34.1 09/13/18 ECHO: LV chamber size is normal. LV wall thickness is normal. There is normal global systolic function and contractil ity. The estimated left ventricle ejection fraction is 55-60%(nor mal). There is trace tricuspid regurgitat ion. Irritable bowel syndrome 00869853 K58.9 Dyspnea on exertion 6084 5006 R06.03-28-2017 Treadmill Nuclear Stress Test 03/28/17: Negative stress test for ischemia. Edema of l ower extremity 146831460 R60.0 stable. takes lasix 20 mg [id number] Dany Gallardo MD [facility] [address] [place] [address] 04/12/2020 14:04:18 04/12/2020 14:50:22 Hyperlipidemia 13590894 E78.5 Needs to keep LDL less than 70, and HDL more than 40 03/25/2020 LDL is 65 Benign ess ential hypertension 2902421 I10 Well-contr olled. Continue current regimen. Edema of l ower extremity 764012657 R60.0 Continue Lasix, low salt diet and leg elevation. Ventricula r premature beats 19456553 I49.3 much better now. Seems to be well compensate d now Dyspnea on exertion 6084 5006 R06.09 Stable.Ryne admill Nuclear Stress Test 03/28/17: Negative stress test for ischemia. Mitral valve prolapse 40 3644769 I34.1 09/13/18 ECHO: LV chamber size is normal. LV wall thickness is normal. There is normal global systolic function and contractil ity. The estimated left ventricle ejection fraction is 55-60%(nor mal). There is trace tricuspid regurgitat ion. Hypothyroidism 15863894 E03.9 Managed by PCP [id number] Priyanka Rodriguez [facility] Office [address] [place] [address] 10/18/2020 13:52:22 10/18/2020 14:51:24 Hyperlipidemia 04721845 E78.5 Needs to keep LDL less than 70, and HDL more than 40. 03/25/2020 LDL 65 Continue pravastati n 20mg Will get fasting lipids for follow-up Benign ess ential hypertension 8030116 I10 Well controlled on current regimen Edema of l ower extremity 426188022 R60.0 Improved with LasixLeg elevation and low salt diet advised Ventricula r premature beats 42106727 I49.3 Resolved with metoprolol Dyspnea on exertion 6084 5006 R06.09 StableTDM 03/28/2017 : Negative stress test for ischemia. Mitral valve prolapse 40 1016559 I34.1 Occasional palpitatio ns, otherwise stable. Echo 09/13/2018 : LV chamber size is normal. LV wall thickness is normal. There is normal global systolic function and contractil ity. The estimated left ventricle ejection fraction is 55-60%(nor mal). There is trace tricuspid regurgitat ion. Hypothyroidism 77582853 E03.9 Management by PCP and endocrinol ogist [id number] Dany Gallardo MD [facility] [address] [place] [address] 12/08/2022 11:09:43 12/08/2022 12:24:34 Hyperlipidemia 54022928 E78.5 Needs to keep LDL less than 70, and HDL more than 40. 03/25/2020 LDL 65 Continue pravastati n 20mg Will get fasting lipids for follow-up Benign ess ential hypertension 7888250 I10 Well controlled on current regimen Edema of l ower extremity 401393139 R60.0 Improved with LasixLeg elevation and low salt diet advised Ventricula r premature beats 45695804 I49.3 Resolved with metoprolol Dyspnea on exertion 6084 5006 R06.09 StableTDM 03/28/2017 : Negative stress test for ischemia. Mitral valve prolapse 40 8404985 I34.1 Occasional palpitatio ns, otherwise stable. Echo 09/13/2018 : LV chamber size is normal. LV wall thickness is normal. There is normal global systolic function and contractil ity. The estimated left ventricle ejection fraction is 55-60%(nor mal). There is trace tricuspid regurgitat ion. Hypothyroidism 32558928 E03.9 Management by PCP and endocrinol ogist Palpitations 04967064 R0 0.2 Could be Palpitatio n, will add ASA full dose , continue with [email or web address] Hour Holter, to evaluate arrhythmia [id number] Janessa Hunter [facility] [address] [place] [address] 04/11/2023 10:20:54 04/11/2023 11:11:04 Hyperlipidemia 97465681 E78.5 Needs to keep LDL less than 70, and HDL more than 40. 03/25/2020 LDL 73 Continue pravastati n 20mg Will get fasting lipids for follow-up Edema of l ower extremity 272029362 R60.0 Improved with LasixLeg elevation and low salt diet advised Ventricula r premature beats 87293131 I49.3 Resolved with metoprolol Dyspnea on exertion 6084 5006 R06.09 StableTDM 03/28/2017 : Negative stress test for ischemia. Mitral valve prolapse 40 8476354 I34.1 Occasional palpitatio ns, otherwise stable. Echo 09/13/2018 : LV chamber size is normal. LV wall thickness is normal. There is normal global systolic function and contractil ity. The estimated left ventricle ejection fraction is 55-60%(nor mal). There is trace tricuspid regurgitat ion. Hypothyroidism 87733532 E03.9 Management by PCP and endocrinol ogist Palpitations 94886512 R0 0.2 monitor showed a fib with rvrstartin g eliquis 5 mg BID Paroxysmal atrial fibrillation 085638955 I48.0 heart monitor showed a fib with RVRstart eliquis 5 mg BID daily and continue with metop Atypical chest pain 1025 45461 R07.89 Treadmill Myoview Stress test, has high Carmel Risk score. Has Known CAD, or CAD risk equivalent . To look for any ischemia. Essential hypertension 90933582 I10 BP is elevated today 180/90 [id number] [facility] [address] [place] [address] 04/25/2023 10:11:06 04/25/2023 10:56:54 Hyperlipidemia 31532062 E78.5 Needs to keep LDL less than 70, and HDL more than 40. 03/2023 LDL 55 Continue pravastati n 20mg Will get fasting lipids for follow-up Edema of l ower extremity 759562702 R60.0 Improved with Lasix now it is stabletake lasix as neededLeg elevation and low salt diet advised Ventricula r premature beats 56414272 I49.3 Resolved with metoprolol Dyspnea on exertion [...] test for ischemia. Mitral valve prolapse 40 4293291 I34.1 Occasional palpitatio ns, otherwise stable. Echo 09/13/2018 : LV chamber size is normal. LV wall thickness is normal. There is normal global systolic function and contractil ity. The estimated left ventricle ejection fraction is 55-60%(nor mal). There is trace tricuspid regurgitat ion. Hypothyroidism 42220171 E03.9 Management by PCP and endocrinol ogist Palpitations 01632165 R0 0.2 monitor showed a fib with rvrcontinu e eliquis 5 mg BIDstartin g baby aspirin Paroxysmal atrial fibrillation 078992166 I48.0 heart monitor showed a fib with RVRstart eliquis 5 mg BID daily and continue with metop 75 mg daily Atypical chest pain 1025 68348 R07.89 The patient will be scheduled for left heart catheteriz ation, with coronary angiogram, and possible PTCA/Stent . The procedure was discussed with the patient, and risks, benefits, and alternativ e options were explained. The patient was given informatio n about heart catheteriz ation and interventi onal procedures . The patient agrees to proceed. Essential hypertension 93207867 I10 BP is well controlled today [id number] Dany Gallardo MD [facility] [address] [place] [address] 09/02/2024 09:29:43 09/02/2024 10:13:35 Hyperlipidemia 16338561 E78.5 Needs to keep LDL less than 70, and HDL more than 40. 03/2023 LDL 55 Continue pravastati n 20mg Will get fasting lipids for follow-up Edema of l ower extremity 919497641 R60.0 Improved with Lasix now it is stabletake lasix as neededLeg elevation and low salt diet advised Ventricula r premature beats 81281295 I49.3 Resolved with metoprolol Mitral valve prolapse 40 3662395 I34.1 Occasional palpitatio ns, otherwise stable.Had ECHO on 05/02/24 showed Left ventricula r chamber dimension is normal. left ventricula r diastolic function is grade l diastolic dysfunctio n. E/E 11 is mildly elevated. Global longitudin al strain is normal at -21.1%. Hypothyroidism 00022041 E03.9 Management by PCP and endocrinol ogist Palpitations 29116622 R0 0.2 monitor showed a fib with rvrcontinu e eliquis 5 mg BID Paroxysmal atrial fibrillation 268809178 I48.0 heart monitor showed a fib with RVRstart eliquis 5 mg BID daily and continue with metop 75 mg daily Essential hypertension 02564178 I10 BP is well controlled today Health Concerns Section Related Observation LastModified by Organization Detai ls LastModified Time None Recorded Concern Status LastModified by Organization Details LastModified Time None Recorded Advance Directives Directive None Recorded Payers Encounter Date Sequence Insurance Name Policy Number Policy Gao Covered Member ID Gao Member ID Guarantor Name 10/18/2020 2 [employer] Bárbara Bell Barb [id number] Bárbara Bell Barb 10/18/2020 1 MEDICARE B: [employer] MEDICARE Bárbara Bell Barb [id number] Bárbara Bell Barb 12/08/2022 1 MEDICARE B: [employer]IL[employer] MEDICARE Bárbara Bell Barb [id number] Bárbara Bell Barb 04/11/2023 2 10-20 [employer]UR[employer] (MEDICARE SUPPLEMENT) Bárbara Daleyst [id number] Bárbara Bell Barb 04/11/2023 1 MEDICARE B: [employer]IL[employer] MEDICARE Bárbara Bell Barb [id number] Bárbara Bell Barb 04/25/2023 2 [employer] (MEDICARE SUPPLEMENT) Bárbara Bell Barb [id number] Bárbara Bell Barb 04/25/2023 1 MEDICARE B: [employer] MEDICARE Bárbara Bell Barb [id number] 6 Bárbara Bell Barb 09/02/2024 2 10[employer] (MEDICARE SUPPLEMENT) Bárbara Bell Barb [id number] Bárbara Bell Barb 09/02/2024 1 MEDICARE B: [employer] MEDICARE Bárbara Bell Barb [id number] Bárbara Bell Barb Notes Date Note [...] She is going to follow-up with an machine sole leveler who she saw a few years ago. [...] 12 04/12/20 EKG: Sinus rhythm, RSR (V1)- saxqkcoulpair73/04/19 EKG: Low voltage, chest leads.EKG 10/13/19:Sinus rhythm,low QRS voltage in precordial leads,normal variant of EKG. Had ECHO done in 09/13/18 showed normal global systolic function , EF 55-60% , trace tricuspid regurgitation . Had ECHO done in 08/31/16 showed mild LVH, Normal LV systolic function , EF 60-65% , grade 1 diastolic dysfunction . Priyanka Rodriguez [facility] - [facility] 10/18/2020 14:22:37 12/08/2022 text/html 12/08/22CC : Arya reina follow up, [id number] female with PMH of HTN, GERD, HLD, [...] She is going to follow-up with an machine sole leveler who she saw a few years ago. [...] 12 04/12/20 EKG: Sinus rhythm, RSR (V1)- mneeagzwhgfju27/04/19 EKG: Low voltage, chest leads.EKG 10/13/19:Sinus rhythm,low QRS voltage in precordial leads,normal variant of EKG. Had ECHO done in 09/13/18 showed normal global systolic function , EF 55-60% , trace tricuspid regurgitation . Had ECHO done in 08/31/16 showed mild LVH, Normal LV systolic function , EF 60-65% , grade 1 diastolic dysfunction . Dany Gallardo MD [address] [place], [address], [facility] - [facility] 12/08/2022 12:19:57 04/11/2023 text/html 04/11/23CC : Car diac follow up chest pain and dyspnea on [id number] female with PMH of Hypertension , GERD, [...] She is going to follow-up with an machine sole leveler who she saw a few years ago. [...] 12 04/12/20 EKG: Sinus rhythm, RSR (V1)- xiynkybjywghi52/04/19 EKG: Low voltage, chest leads.EKG 10/13/19:Sinus rhythm,low QRS voltage in precordial leads,normal variant of EKG. Had ECHO done in 09/13/18 showed normal global systolic function , EF 55-60% , trace tricuspid regurgitation . Had ECHO done in 08/31/16 showed mild LVH, Normal LV systolic function , EF 60-65% , grade 1 diastolic dysfunction . Janessa Hunter [facility], [place] - [facility] 04/13/2023 14:07:20 04/25/2023 text/html 04/25/23CC : Car diac follow up dyspnea on [id number] female with PMH of Hypertension , GERD, [...] She is going to follow-up with an machine sole leveler who she saw a few years ago. [...] 12 04/12/20 EKG: Sinus rhythm, RSR (V1)- /04/19 EKG: Low voltage, chest leads.EKG 10/13/19:Sinus rhythm,low QRS voltage in precordial leads,normal variant of EKG. Had ECHO done in 09/13/18 showed normal global systolic function , EF 55-60% , trace tricuspid regurgitation . Had ECHO done in 08/31/16 showed mild LVH, Normal LV systolic function , EF 60-65% , grade 1 diastolic dysfunction . HANNAH trivedi ND - [facility] 04/25/2023 10:47:30 09/02/2024 text/html 09/02/24CC : Car diac follow up , dyspnea on -[id number] female with PMH of Hypertension , GERD, [...] She is going to follow-up with an machine sole leveler who she saw a few years ago. [...] 12 04/12/20 EKG: Sinus rhythm, RSR (V1)- [id number]/04/19 EKG: Low voltage, chest leads.EKG 10/13/19:Sinus rhythm,low QRS voltage in precordial leads,normal variant of EKG. Had ECHO done in 09/13/18 showed normal global systolic function , EF 55-60% , trace tricuspid regurgitation . Had ECHO done in 08/31/16 showed mild LVH, Normal LV systolic function , EF 60-65% , grade 1 diastolic dysfunction . Dany Gallardo MD [address] [place], [id number], [facility] - [facility] 09/02/2024 10:11:07 OBGyn Episode No OBEpisode recorded.
--- OUTSIDE RECORDS SUMMARY | 2025-01-05 07:59 | XMS_ITS | Data Portability ---
Author Organization [facility], [employer] Address [address] [place] [address] Care Team Providers Care Escalator Constructor Name Role Phone ADELA UMANA Primary Care Provider Assessment Encounter Date Assessment Date Assessment LastModified by Organization Details LastModified Time 07/18/2023 07/18/2023 Patient presented for follow up. Studies ordered as below. Discussed plan with patient/careg iver, who expressed understanding . Follow up as noted below. [email or web address] Not available 07/18/2023 09:57:08 10/19/2023 10/19/2023 Patient [...] Lab urinalysis , dipstick 2023 024 [facility], [address], [place], [address], 5 11:47:26 CMP, serum or plasma 2023 024 [facility], [address], [place], [address], 5 09:03:56 CBC 2023 024 [facility], [address], [place], [address], 4 10:26:50 vitamin D, 25-hydroxy , total, serum 2023 024 [facility], [address], [place], [address], 5 09:03:56 urinalysis , dipstick 2023 024 [facility], [address], [place], [address], 4 13:01:10 CMP, serum or plasma 2023 024 [facility], [address], [place], [address], 4 04:37:36 CBC w/ auto diff 2023 024 [facility], [address], [place], [address], 4 04:37:37 HbA1c (hemoglobi n A1c), blood 2023 024 [facility], [address], [place], [address], 4 04:37:39 TSH + free T4, serum 2023 024 [facility], [address], [place], [address], 4 04:37:34 lipid panel, serum 2023 024 [facility] [address], [place], [address], 4 04:37:33 magnesium, serum or plasma 2023 024 [facility], [facility] [address] [address], [place], [address], 4 04:37:35 urinalysis , dipstick 2023 024 [facility], [facility], [address] [place] [address] [address], [place], [address], 4 12:47:43 magnesium, serum or plasma 2023 024 [facility], [facility] [address] [address], [place], [address], 4 03:24:03 CMP, serum or plasma 2023 024 [facility], [facility] [address], [place], [address], 4 03:24:04 CBC w/ auto diff 2023 024 [facility], [facility] [address], [place], [address], 4 03:24:05 lipid panel, serum 2023 024 [facility] [address], [place], [address], 4 03:24:00 vitamin D, 25-hydroxy , total, serum 2023 024 [facility], [address], [place], [address], 4 03:24:06 TSH + free T4, serum 2023 024 [facility], [address], [address], [place], [address], 4 03:24:02 CMP, serum or plasma 2022 023 [facility], [address], [address], [place], [address], 3 04:43:49 CBC w/ auto diff 2022 023 [facility], [address], [place], [address], 3 04:43:50 Referral optometris t referral 2023 024 [facility], [address] [place] [address], [place], [address], 5 07:33:13 optometris t referral 2023 024 [facility], [address] [place] [address], [place], [address], 4 08:45:40 optometris t referral [address], [address] [place] [address], [place], [address], 5 09:07:31 Procedures None recorded. Surgeries None recorded. Imaging bone density [address] [facility], [address], [place], [address], 5 09:07:22 bone density [address], [address], [place], [address], 5 09:07:22 US, thyroid 2023 024 [facility], [address], [place], [address], 4 10:49:05 MAMMO, screening, digital, bilateral 2023 024 [facility], [address], [place], [address], 4 21:30:31 MAMMO, screening, digital, bilateral 2022 023 [email or web address], [address], [place], [address], 5 09:07:21 Medication Orders famotidine 20 mg tablet 2023 024 [facility], [address], [place], [place], [id number], 4 10:25:43 Eliquis 5 mg tablet 2023 024 [email or web address] Not available 4 11:39:05 Synthroid 88 mcg tablet 2023 024 mshenouda Not available 4 22:24:38 cetirizine 10 mg tablet 2023 024 [facility], [address], [place], [place], [id number], 4 11:26:54 Zithromax Z-Jp 250 mg tablet 2023 024 [facility], [address], [place], [place], [id number], 11:49:43 Patient TargetsNo targets recorded. Patient Instructions Encounter Date Encounter Id Patient Instructions Last Modified By Organization Details Last Modified Time 07/18/2023 [id number] mammogram: about this test mshenouda Not available 07/18/2023 10:56:04 atrial fibrillation: care instructions mshenouda Not available 07/18/2023 10:56:05 hypothyroidism: care instructions mshenouda Not available 07/18/2023 10:56:05 high cholesterol : care instructions mshenouda Not available 07/18/2023 10:56:04 body mass index: care instructions mshenouda Not available 07/18/2023 10:56:05 learning about healthy weight mshenouda Not available 07/18/2023 10:56:04 10/19/2023 [id number] mammogram: about this test mshenouda Not available [...] will mshenouda Not available 05/2024 11:21:22 01/18/2024 [id number] mammogram: about this test mshenouda Not available 01/18/2024 11:17:46 blood in the urine: care instructions mshenouda Not available 01/18/2024 11:17:46 goiter: care instructions mshenouda Not available 01/18/2024 11:17:46 high cholesterol : care instructions mshenouda Not available 01/18/2024 11:17:46 body mass index: care instructions mshenouda Not available 01/18/2024 11:17:46 learning about healthy weight mshenouda Not available 01/18/2024 11:17:46 06/05/2024 [id number] mammogram: about this test mshenouda Not available [...] weight mshenouda Not available 06/05/2024 10:25:04 09/09/2024 [id number] mammogram: about this test mshenouda Not available [...] Not available 09/09/2024 10:25:35 Reason for Referral Financial Business Analyst Referral for Franklyn ign hypertension Referring Physician: Adela Umana, Internal Medicine, Encounter Date: 07/18/2023 Financial Business Analyst Referral for Franklyn ign hypertension Referring Physician: Adela Umana, Internal Medicine, Encounter Date: 10/19/2023 Financial Business Analyst Referral for Franklyn ign hypertension Referring Physician: Adela Umana, Internal Medicine, Encounter Date: 09/09/2024 Results Created Date Observation Date Name Description Value Unit Range Abnormal Flag Note LastModifiedBy Organization Detail LastModifiedTime 07/28/2007/30/2023 COMPR EHENS JOANNE METAB OLIC PANEL glucose 92 mg/dL 65-99 normal Fasti ng refer ence inter esteban Not Available [address], [address], 07/30/2023 04:43:49 07/28/2007/30/2023 COMPR EHENS JOANNE METAB OLIC PANEL urea nitrogen (BUN) 14 mg/dL 7-25 normal Not Available [employer] [address] [place], [address], 07/30/2023 04:43:49 07/28/2007/30/2023 COMPR EHENS JOANNE METAB OLIC PANEL creatinine 0.77 mg/dL 0.60-1 .00 normal Not Available [facility] [address], [address], 07/30/2023 04:43:49 07/28/20 23 07/30/2023 COMPR EHENS JOANNE METAB OLIC PANEL eGFR 80 mL/mi n/1.7 3m2 > or = 60 normal Not Available [address] [address] [place], [address], 07/30/2023 04:43:49 07/28/20 23 07/30/2023 COMPR EHENS JOANNE METAB OLIC PANEL BUN/creatini ne ratio SEE NOTE: (calc ) 6-22 Not Repor cuba: BUN and Creat inine are withi n refer ence range . Not Available [address] [address] [place], [address], 07/30/2023 04:43:49 07/28/20 23 07/30/2023 COMPR EHENS JOANNE METAB OLIC PANEL sodium 140 mmol/ L 135-14 6 normal Not Available [address] [address] [place], [address], 07/30/2023 04:43:49 07/28/20 23 07/30/2023 COMPR EHENS JOANNE METAB OLIC PANEL potassium 3.9 mmol/ L 3.5-5. 3 normal Not Available [address] [address] [place], [address], 07/30/2023 04:43:49 07/28/20 23 07/30/2023 COMPR EHENS JOANNE METAB OLIC PANEL chloride 106 mmol/ L 98-110 normal Not Available [address], [address], 07/30/2023 04:43:49 07/28/20 23 07/30/2023 COMPR EHENS JOANNE METAB OLIC PANEL carbon dioxide 25 mmol/ L 20-32 normal Not Available [address], [address], 07/30/2023 04:43:49 07/28/20 23 07/30/2023 COMPR EHENS JOANNE METAB OLIC PANEL calcium 9.1 mg/dL 8.6-10 .4 normal Not Available [facility] [address], [address], 07/30/2023 04:43:49 07/28/20 23 07/30/2023 COMPR EHENS JOANNE METAB OLIC PANEL protein, total 6.6 g/dL 6.1-8. 1 normal Not Available [address], [address], 07/30/2023 04:43:49 07/28/20 23 07/30/2023 COMPR EHENS JOANNE METAB OLIC PANEL albumin 4.2 g/dL 3.6-5. 1 normal Not Available [address], [address], 07/30/2023 04:43:49 07/28/20 23 07/30/2023 COMPR EHENS JOANNE METAB OLIC PANEL globulin 2.4 g/dL_ (calc ) 1.9-3. 7 normal Not Available [address], [address], 07/30/2023 04:43:49 07/28/20 23 07/30/2023 COMPR EHENS JOANNE METAB OLIC PANEL albumin/glob ulin ratio 1.8 (calc ) 1.0-2. 5 normal Not Available [address], [address], 07/30/2023 04:43:49 07/28/20 23 07/30/2023 COMPR EHENS JOANNE METAB OLIC PANEL bilirubin, total 0.6 mg/dL 0.2-1. 2 normal Not Available [address], [address], 07/30/2023 04:43:49 07/28/20 23 07/30/2023 COMPR EHENS JOANNE METAB OLIC PANEL alkaline phosphatase 55 U/L 37-153 normal Not Available [address] [address] [place], [address], 07/30/2023 04:43:49 07/28/20 23 07/30/2023 COMPR EHENS JOANNE METAB OLIC PANEL AST 15 U/L 10-35 normal Not Available [address], [address], 07/30/2023 04:43:49 07/28/20 23 07/30/2023 COMPR EHENS JOANNE METAB OLIC PANEL ALT 15 U/L 6-29 normal Not Available [address], [address], 07/30/2023 04:43:49 07/28/20 23 07/30/2023 CBC (INCL UDES DIFF/ PLT) white blood cell count 6.2 thous and/u L 3.8-10 .8 normal Not Available [address], [address], 07/30/2023 04:43:50 07/28/20 23 07/30/2023 CBC (INCL UDES DIFF/ PLT) red blood cell count 4.32 constantino on/uL 3.80-5 .10 normal Not Available [address], [address], 07/30/2023 04:43:50 07/28/20 23 07/30/2023 CBC (INCL UDES DIFF/ PLT) hemoglobin 13.8 g/dL 11.7-1 5.5 normal Not Available [address], [address], 07/30/2023 04:43:50 07/28/20 23 07/30/2023 CBC (INCL UDES DIFF/ PLT) hematocrit 41.2 % 35.0-4 5.0 normal Not Available [address], [address], 07/30/2023 04:43:50 07/28/20 23 07/30/2023 CBC (INCL UDES DIFF/ PLT) MCV 95.4 fL 80.0-1 00.0 normal Not Available [address], [address], 07/30/2023 04:43:50 07/28/20 23 07/30/2023 CBC (INCL UDES DIFF/ PLT) MCH 31.9 pg 27.0-3 3.0 normal Not Available [address], [address], 07/30/2023 04:43:50 07/28/20 23 07/30/2023 CBC (INCL UDES DIFF/ PLT) MCHC 33.5 g/dL 32.0-3 6.0 normal Not Available [address], [address], 07/30/2023 04:43:50 07/28/20 23 07/30/2023 CBC (INCL UDES DIFF/ PLT) RDW 11.8 % 11.0-1 5.0 normal Not Available [address], [address], 07/30/2023 04:43:50 07/28/20 23 07/30/2023 CBC (INCL UDES DIFF/ PLT) platelet count 191 thous and/u L 140-40 0 normal Not Available [address], [address], 07/30/2023 04:43:50 07/28/20 23 07/30/2023 CBC (INCL UDES DIFF/ PLT) MPV 10.9 fL 7.5-12 .5 normal Not Available [address], [address], 07/30/2023 04:43:50 07/28/20 23 07/30/2023 CBC (INCL UDES DIFF/ PLT) absolute neutrophils 4018 cells /uL 1500-7 800 normal Not Available [address], [address], 07/30/2023 04:43:50 07/28/20 23 07/30/2023 CBC (INCL UDES DIFF/ PLT) absolute lymphocytes 1711 cells /uL 850-39 00 normal Not Available [address], [address], 07/30/2023 04:43:50 07/28/20 23 07/30/2023 CBC (INCL UDES DIFF/ PLT) absolute monocytes 360 cells /uL 200-95 0 normal Not Available [address], [address], 07/30/2023 04:43:50 07/28/2007/30/2023 CBC (INCL UDES DIFF/ PLT) absolute eosinophils 81 cells /uL 15-500 normal Not Available [address], [address], 07/30/2023 04:43:50 07/28/20 23 07/30/2023 CBC (INCL UDES DIFF/ PLT) absolute basophils 31 cells /uL 0-200 normal Not Available [address], [address], 07/30/2023 04:43:50 07/28/20 23 07/30/2023 CBC (INCL UDES DIFF/ PLT) neutrophils 64.8 % normal Not Available [address], [address], 07/30/2023 04:43:50 07/28/20 23 07/30/2023 CBC (INCL UDES DIFF/ PLT) lymphocytes 27.6 % normal Not Available [address], [address], 07/30/2023 04:43:50 07/28/20 23 07/30/2023 CBC (INCL UDES DIFF/ PLT) monocytes 5.8 % normal Not Available [address], [address], 07/30/2023 04:43:50 07/28/20 23 07/30/2023 CBC (INCL UDES DIFF/ PLT) eosinophils 1.3 % normal Not Available [address], [address], 07/30/2023 04:43:50 07/28/20 23 07/30/2023 CBC (INCL UDES DIFF/ PLT) basophils 0.5 % normal Not Available [address], [address], 07/30/2023 04:43:50 11/09/19 24 11/10/2023 LIPID PANEL WITH REFLE X TO DIREC T LDL cholesterol, total 139 mg/dL <200 normal Not Available [address], [address], 11/10/2023 03:23:57 11/09/19 24 11/10/2023 LIPID PANEL WITH REFLE X TO DIREC T LDL HDL cholesterol 52 mg/dL > or = 50 normal Not Available [address], [address], 11/10/2023 03:23:57 11/09/19 24 11/10/2023 LIPID PANEL WITH REFLE X TO DIREC T LDL triglyceride s 87 mg/dL <150 normal Not Available [address], [address], 11/10/2023 03:23:57 11/09/19 24 11/10/2023 LIPID PANEL [...] LDL-C is now calcu lated using the [facility] kins jose guadalupe guerrero n, which is a valid ated novel metho d provi marli juli r accur acy than the Fried reynaldo equat ion in the estim ation of LDL-C . Kailey n SS et al. SUZANNE. 2013; 310(1 9): 2061- 2068 (http ://ed ucati on.Spark [employer] gingerBetterCloud. com/f aq/FA Q164) Not Available [address] [address] [place], [address], 11/10/2023 03:23:57 11/09/19 24 11/10/2023 LIPID PANEL WITH REFLE X TO DIREC T LDL chol/HDLC ratio 2.7 (calc ) <5.0 normal Not Available [address], [address], 11/10/2023 03:23:57 11/09/19 24 11/10/2023 LIPID PANEL WITH REFLE X TO DIREC T LDL non HDL cholesterol 87 mg/dL _(devon c) <130 normal For patie nts with diabe bear plus 1 major ASCVD risk facto r, treat ing to a non-H DL-C goal of <100 mg/dL (LDL- C of <70 mg/dL ) is amita jurado n. Not Available [address] [address] [place], [address], 11/10/2023 03:23:57 11/09/1911/10/2023 TSH+F REE T4 TSH 0.20 mIU/L 0.40-4 .50 low Not Available [facility] [address] [address] [place], [address], 11/10/2023 03:24:02 11/09/19 24 11/10/2023 TSH+F REE T4 T4, free 1.5 NG/dL 0.8-1. 8 normal Not Available [facility] [address] [address] [place], [address], 11/10/2023 03:24:02 11/09/19 24 11/10/2023 MAGNE SIUM magnesium 2.1 mg/dL 1.5-2. 5 normal Not Available [address], [address], 11/10/2023 03:24:02 11/09/19 24 11/10/2023 COMPR EHENS JOANNE METAB OLIC PANEL glucose 89 mg/dL 65-99 normal Fasti ng refer ence inter esteban Not Available [address], [address], 11/10/2023 03:24:04 11/09/19 24 11/10/2023 COMPR EHENS JOANNE METAB OLIC PANEL urea nitrogen (BUN) 11 mg/dL 7-25 normal Not Available [address], [address], 11/10/2023 03:24:04 11/09/19 24 11/10/2023 COMPR EHENS JOANNE METAB OLIC PANEL creatinine 0.84 mg/dL 0.60-1 .00 normal Not Available [address], [address], 11/10/2023 03:24:04 11/09/19 24 11/10/2023 COMPR EHENS JOANNE METAB OLIC PANEL eGFR 72 mL/mi n/1.7 3m2 > or = 60 normal Not Available [address], [address], 11/10/2023 03:24:04 11/09/19 24 11/10/2023 COMPR EHENS JOANNE METAB OLIC PANEL BUN/creatini ne ratio SEE NOTE: (calc ) 6-22 Not Repor cuba: BUN and Creat inine are withi n refer ence range . Not Available [address], [address], 11/10/2023 03:24:04 11/09/19 24 11/10/2023 COMPR EHENS JOANNE METAB OLIC PANEL sodium 140 mmol/ L 135-14 6 normal Not Available [address], [address], 11/10/2023 03:24:04 11/09/19 24 11/10/2023 COMPR EHENS JOANNE METAB OLIC PANEL potassium 4.2 mmol/ L 3.5-5. 3 normal Not Available [address], [address], 11/10/2023 03:24:04 11/09/19 24 11/10/2023 COMPR EHENS JOANNE METAB OLIC PANEL chloride 104 mmol/ L 98-110 normal Not Available [address], [address], 11/10/2023 03:24:04 11/09/19 24 11/10/2023 COMPR EHENS JOANNE METAB OLIC PANEL carbon dioxide 29 mmol/ L 20-32 normal Not Available [address], [address], 11/10/2023 03:24:04 11/09/19 24 11/10/2023 COMPR EHENS JOANNE METAB OLIC PANEL calcium 9.2 mg/dL 8.6-10 .4 normal Not Available [address], [address], 11/10/2023 03:24:04 11/09/19 24 11/10/2023 COMPR EHENS JOANNE METAB OLIC PANEL protein, total 6.5 g/dL 6.1-8. 1 normal Not Available [address], [address], 11/10/2023 03:24:04 11/09/19 24 11/10/2023 COMPR EHENS JOANNE METAB OLIC PANEL albumin 4.3 g/dL 3.6-5. 1 normal Not Available [address], [address], 11/10/2023 03:24:04 11/09/19 24 11/10/2023 COMPR EHENS JOANNE METAB OLIC PANEL globulin 2.2 g/dL_ (calc ) 1.9-3. 7 normal Not Available [address], [address], 11/10/2023 03:24:04 11/09/19 24 11/10/2023 COMPR EHENS JOANNE METAB OLIC PANEL albumin/glob ulin ratio 2.0 (calc ) 1.0-2. 5 normal Not Available [address], [address], 11/10/2023 03:24:04 11/09/19 24 11/10/2023 COMPR EHENS JOANNE METAB OLIC PANEL bilirubin, total 0.9 mg/dL 0.2-1. 2 normal Not Available [address], [address], 11/10/2023 03:24:04 11/09/19 24 11/10/2023 COMPR EHENS JOANNE METAB OLIC PANEL alkaline phosphatase 55 U/L 37-153 normal Not Available [address], [address], 11/10/2023 03:24:04 11/09/19 24 11/10/2023 COMPR EHENS JOANNE METAB OLIC PANEL AST 17 U/L 10-35 normal Not Available [address], [address], 11/10/2023 03:24:04 11/09/19 24 11/10/2023 COMPR EHENS JOANNE METAB OLIC PANEL ALT 14 U/L 6-29 normal Not Available [address], [address], 11/10/2023 03:24:04 11/09/19 24 11/10/2023 CBC (INCL UDES DIFF/ PLT) white blood cell count 5.3 thous and/u L 3.8-10 .8 normal Not Available [address], [address], 11/10/2023 03:24:05 11/09/19 24 11/10/2023 CBC (INCL UDES DIFF/ PLT) red blood cell count 4.21 constantino on/uL 3.80-5 .10 normal Not Available [address], [address], 11/10/2023 03:24:05 11/09/19 24 11/10/2023 CBC (INCL UDES DIFF/ PLT) hemoglobin 13.4 g/dL 11.7-1 5.5 normal Not Available [address], [address], 11/10/2023 03:24:05 11/09/19 24 11/10/2023 CBC (INCL UDES DIFF/ PLT) hematocrit 39.8 % 35.0-4 5.0 normal Not Available [address], [address], 11/10/2023 03:24:05 11/09/19 24 11/10/2023 CBC (INCL UDES DIFF/ PLT) MCV 94.5 fL 80.0-1 00.0 normal Not Available [facility] [address], [address], 11/10/2023 03:24:05 11/09/19 24 11/10/2023 CBC (INCL UDES DIFF/ PLT) MCH 31.8 pg 27.0-3 3.0 normal Not Available [facility] [address], [address], 11/10/2023 03:24:05 11/09/19 24 11/10/2023 CBC (INCL UDES DIFF/ PLT) MCHC 33.7 g/dL 32.0-3 6.0 normal Not Available [facility] [address], [address], 11/10/2023 03:24:05 11/09/19 24 11/10/2023 CBC (INCL UDES DIFF/ PLT) RDW 12.4 % 11.0-1 5.0 normal Not Available [address], [address], 11/10/2023 03:24:05 11/09/19 24 11/10/2023 CBC (INCL UDES DIFF/ PLT) platelet count 205 thous and/u L 140-40 0 normal Not Available [facility] [address], [address], 11/10/2023 03:24:05 11/09/19 24 11/10/2023 CBC (INCL UDES DIFF/ PLT) MPV 10.3 fL 7.5-12 .5 normal Not Available [address], [address], 11/10/2023 03:24:05 11/09/19 24 11/10/2023 CBC (INCL UDES DIFF/ PLT) absolute neutrophils 3599 cells /uL 1500-7 800 normal Not Available [address], [address], 11/10/2023 03:24:05 11/09/19 24 11/10/2023 CBC (INCL UDES DIFF/ PLT) absolute lymphocytes 1293 cells /uL 850-39 00 normal Not Available [address], [address], 11/10/2023 03:24:05 11/09/19 24 11/10/2023 CBC (INCL UDES DIFF/ PLT) absolute monocytes 297 cells /uL 200-95 0 normal Not Available [facility] [address], [address], 11/10/2023 03:24:05 11/09/19 24 11/10/2023 CBC (INCL UDES DIFF/ PLT) absolute eosinophils 80 cells /uL 15-500 normal Not Available [address], [address], 11/10/2023 03:24:05 11/09/19 24 11/10/2023 CBC (INCL UDES DIFF/ PLT) absolute basophils 32 cells /uL 0-200 normal Not Available [address], [address], 11/10/2023 03:24:05 11/09/19 24 11/10/2023 CBC (INCL UDES DIFF/ PLT) neutrophils 67.9 % normal Not Available [address], [address], 11/10/2023 03:24:05 11/09/19 24 11/10/2023 CBC (INCL UDES DIFF/ PLT) lymphocytes 24.4 % normal Not Available [address], [address], 11/10/2023 03:24:05 11/09/19 24 11/10/2023 CBC (INCL UDES DIFF/ PLT) monocytes 5.6 % normal Not Available [address], [address], 11/10/2023 03:24:05 11/09/19 24 11/10/2023 CBC (INCL UDES DIFF/ PLT) eosinophils 1.5 % normal Not Available [address], [address], 11/10/2023 03:24:05 11/09/19 24 11/10/2023 CBC (INCL UDES DIFF/ PLT) basophils 0.6 % normal Not Available [address], [address], 11/10/2023 03:24:05 11/09/19 24 11/10/2023 VITAM IN [...] /MS is recom enrique d: order code 70195 (lefty ents >2yrs ). See Note 1 Note 1 For addit ional infor carlos a deluca refer to http: //[facility] david Al stDia gnost ics.c om/fa q/FAQ 199 (This link is being provi ded for infor van cox/ mauri majano purpo ses only. ) Not Available [facility] [address] [address] [place], [address], 11/10/2023 03:24:06 01/10/20 24 01/11/2024 TSH+F REE T4 TSH 1.29 mIU/L 0.40-4 .50 normal Not Available [facility] [address] [address] [place], [address], 01/11/2024 05:43:55 01/10/20 24 01/11/2024 TSH+F REE T4 T4, free 1.5 NG/dL 0.8-1. 8 normal Not Available [facility] [address] [address] [place], [address], 01/11/2024 05:43:55 01/18/20 24 01/18/2024 urina lysis , dipst ick Leukocytes Negati ve Not Available [facility], [facility] [address], [place], [address], 01/18/2024 13:44:20 01/18/20 24 01/18/2024 urina lysis , dipst ick Nitrite negati ve Not Available [facility], [facility] [address], [place], [address], 01/18/2024 13:44:20 01/18/20 24 01/18/2024 urina lysis , dipst ick Urobilinogen .2 Not Available [facility] [address], [place], [address], 01/18/2024 13:44:20 01/18/20 24 01/18/2024 urina lysis , dipst ick Protein Trace Not Available [facility] [address] [facility] [address], [place], [address], 01/18/2024 13:44:20 01/18/20 24 01/18/2024 urina lysis , dipst ick pH 7.5 Not Available [facility] [address], [place], [address], 01/18/2024 13:44:20 01/18/20 24 01/18/2024 urina lysis , dipst ick Blood Negati ve Not Available [facility] [address], [place], [address], 01/18/2024 13:44:20 01/18/20 24 01/18/2024 urina lysis , dipst ick Specific [place] 1.005 Not Available [facility] [address], [place], [address], 01/18/2024 13:44:20 01/18/20 24 01/18/2024 urina lysis , dipst ick Ketone Negati ve Not Available [facility] [address], [place], [address], 01/18/2024 13:44:20 01/18/20 24 01/18/2024 urina lysis , dipst ick Bilirubin Negati ve Not Available [facility] [address], [place], [address], 01/18/2024 13:44:20 01/18/20 24 01/18/2024 urina lysis , dipst ick Glucose Negati ve Not Available [facility] [place], [facility] [address], [place], [address], 01/18/2024 13:44:20 01/18/20 24 01/18/2024 urina lysis , dipst ick Appearance Clear Not Available [facility] [address], [place], [address], 01/18/2024 13:44:20 01/18/20 24 01/18/2024 urina lysis , dipst ick Color Pale Yellow Not Available [facility] [place], [facility] [address], [place], [address], 01/18/2024 13:44:20 06/05/20 24 06/05/2024 urina lysis , dipst ick Leukocytes Negati ve Not Available [facility] [place], [facility] [address], [place], [address], 06/05/2024 10:22:52 06/05/20 24 06/05/2024 urina lysis , dipst ick Nitrite negati ve Not Available [facility] [place], [facility] [address], [place], [address], 06/05/2024 10:22:52 06/05/20 24 06/05/2024 urina lysis , dipst ick Urobilinogen .2 Not Available [facility], [facility] [address], [place], [address], 06/05/2024 10:22:52 06/05/20 24 06/05/2024 urina lysis , dipst ick Protein Trace Not Available [facility] [address], [place], [address], 06/05/2024 10:22:52 06/05/20 24 06/05/2024 urina lysis , dipst ick pH 7.5 Not Available [facility] [address], [place], [address], 06/05/2024 10:22:52 06/05/20 24 06/05/2024 urina lysis , dipst ick Blood Negati ve Not Available [facility] [address], [place], [address], 06/05/2024 10:22:52 06/05/20 24 06/05/2024 urina lysis , dipst ick Specific [place] 1.010 Not Available [facility] [address], [place], [address], 06/05/2024 10:22:52 06/05/20 24 06/05/2024 urina lysis , dipst ick Ketone Negati ve Not Available [facility] [address], [place], [address], 06/05/2024 10:22:52 06/05/20 24 06/05/2024 urina lysis , dipst ick Bilirubin Negati ve Not Available [facility] [address], [place], [address], 06/05/2024 10:22:52 06/05/20 24 06/05/2024 urina lysis , dipst ick Glucose Negati ve Not Available [facility] [address], [place], [address], 06/05/2024 10:22:52 06/05/20 24 06/05/2024 urina lysis , dipst ick Appearance Clear Not Available [facility], [facility] [address], [place], [address], 06/05/2024 10:22:52 06/05/20 24 06/05/2024 urina lysis , dipst ick Color Yellow Not Available [facility] [place], [facility] [address], [place], [address], 06/05/2024 10:22:52 06/18/20 24 06/19/2024 LIPID PANEL WITH REFLE X TO DIREC T LDL cholesterol, total 143 mg/dL <200 normal Not Available [address] [place], [address], 06/19/2024 04:37:33 06/18/20 24 06/19/2024 LIPID PANEL WITH REFLE X TO DIREC T LDL HDL cholesterol 43 mg/dL > or = 50 low Not Available [facility] [address] [address] [place], [address], 06/19/2024 04:37:33 06/18/20 24 06/19/2024 LIPID PANEL WITH REFLE X TO DIREC T LDL triglyceride s 79 mg/dL <150 normal Not Available [address] [address] [place], [address], 06/19/2024 04:37:33 06/18/20 24 06/19/2024 LIPID PANEL WITH REFLE X TO DIREC T LDL LDL-choleste rol 83 mg/dL _(devon c) normal Refer ence range : <100 Everarod able range <100 mg/dL for prima ry preve ntion ; <70 mg/dL for patie nts with CHD or diabe tic patie nts with > or = 2 CHD risk facto rs. LDL-C is now calcu lated using the [facility] calcu yolanda n, which is a valid ated novel metho d regan bustos r accur acy than the Fried reynaldo equat ion in the estim ation of LDL-C . Kailey n SS et al. SUZANNE. 2013; 310(4 0): 2061- 2068 (http ://ed ucati on.[employer]. [employer]/f aq/FA Q164) Not Available [address], [address], 06/19/2024 04:37:33 06/18/20 24 06/19/2024 LIPID PANEL WITH REFLE X TO DIREC T LDL chol/HDLC ratio 3.3 (calc ) <5.0 normal Not Available [address], [address], 06/19/2024 04:37:33 06/18/20 24 06/19/2024 LIPID PANEL WITH REFLE X TO DIREC T LDL non HDL cholesterol 100 mg/dL _(devon c) <130 normal For patie nts with diabe bear plus 1 major ASCVD risk facto r, treat ing to a non-H DL-C goal of <100 mg/dL (LDL- C of <70 mg/dL ) is consi dered a thera peuti c optio n. Not Available [address], [address], 06/19/2024 04:37:33 06/18/20 24 06/19/2024 TSH+F REE T4 TSH 4.72 mIU/L 0.40-4 .50 high Not Available [facility] [address], [address], 06/19/2024 04:37:34 06/18/20 24 06/19/2024 TSH+F REE T4 T4, free 1.3 NG/dL 0.8-1. 8 normal Not Available [address], [address], 06/19/2024 04:37:34 06/18/20 24 06/19/2024 MAGNE SIUM magnesium 1.9 mg/dL 1.5-2. 5 normal Not Available [address], [address], 06/19/2024 04:37:35 06/18/20 24 06/19/2024 COMPR EHENS JOANNE METAB OLIC PANEL glucose 88 mg/dL 65-99 normal Fasti ng refer ence inter esteban Not Available [address], [address], 06/19/2024 04:37:36 06/18/20 24 06/19/2024 COMPR EHENS JOANNE METAB OLIC PANEL urea nitrogen (BUN) 24 mg/dL 7-25 normal Not Available [address], [address], 06/19/2024 04:37:36 06/18/20 24 06/19/2024 COMPR EHENS JOANNE METAB OLIC PANEL creatinine 0.94 mg/dL 0.60-1 .00 normal Not Available [address], [address], 06/19/2024 04:37:36 06/18/20 24 06/19/2024 COMPR EHENS JOANNE METAB OLIC PANEL eGFR 63 mL/mi n/1.7 3m2 > or = 60 normal Not Available [address], [address], 06/19/2024 04:37:36 06/18/20 24 06/19/2024 COMPR EHENS JOANNE METAB OLIC PANEL BUN/creatini ne ratio SEE NOTE: (calc ) 6-22 Not Repor cuba: BUN and Creat inine are withi n refer ence range . Not Available [address], [address], 06/19/2024 04:37:36 06/18/20 24 06/19/2024 COMPR EHENS JOANNE METAB OLIC PANEL sodium 139 mmol/ L 135-14 6 normal Not Available [address], [address], 06/19/2024 04:37:36 06/18/20 24 06/19/2024 COMPR EHENS JOANNE METAB OLIC PANEL potassium 3.7 mmol/ L 3.5-5. 3 normal Not Available [address], [address], 06/19/2024 04:37:36 06/18/20 24 06/19/2024 COMPR EHENS JOANNE METAB OLIC PANEL chloride 107 mmol/ L 98-110 normal Not Available [address], [address], 06/19/2024 04:37:36 06/18/2006/19/2024 COMPR EHENS JOANNE METAB OLIC PANEL carbon dioxide 27 mmol/ L 20-32 normal Not Available [address], [address], 06/19/2024 04:37:36 06/18/20 24 06/19/2024 COMPR EHENS JOANNE METAB OLIC PANEL calcium 8.6 mg/dL 8.6-10 .4 normal Not Available [address], [address], 06/19/2024 04:37:36 06/18/20 24 06/19/2024 COMPR EHENS JOANNE METAB OLIC PANEL protein, total 6.3 g/dL 6.1-8. 1 normal Not Available [address], [address], 06/19/2024 04:37:36 06/18/20 24 06/19/2024 COMPR EHENS JOANNE METAB OLIC PANEL albumin 3.8 g/dL 3.6-5. 1 normal Not Available [address], [address], 06/19/2024 04:37:36 06/18/20 24 06/19/2024 COMPR EHENS JOANNE METAB OLIC PANEL globulin 2.5 g/dL_ (calc ) 1.9-3. 7 normal Not Available [address], [address], 06/19/2024 04:37:36 06/18/20 24 06/19/2024 COMPR EHENS JOANNE METAB OLIC PANEL albumin/glob ulin ratio 1.5 (calc ) 1.0-2. 5 normal Not Available [address], [address], 06/19/2024 04:37:36 06/18/20 24 06/19/2024 COMPR EHENS JOANNE METAB OLIC PANEL bilirubin, total 0.6 mg/dL 0.2-1. 2 normal Not Available [address], [address], 06/19/2024 04:37:36 06/18/20 24 06/19/2024 COMPR EHENS JOANNE METAB OLIC PANEL alkaline phosphatase 55 U/L 37-153 normal Not Available [address], [address], 06/19/2024 04:37:36 06/18/20 24 06/19/2024 COMPR EHENS JOANNE METAB OLIC PANEL AST 15 U/L 10-35 normal Not Available [address], [address], 06/19/2024 04:37:36 06/18/20 24 06/19/2024 COMPR EHENS JOANNE METAB OLIC PANEL ALT 12 U/L 6-29 normal Not Available [address], [address], 06/19/2024 04:37:36 06/18/20 24 06/19/2024 CBC (INCL UDES DIFF/ PLT) white blood cell count 5.7 thous and/u L 3.8-10 .8 normal Not Available [address], [address], 06/19/2024 04:37:37 06/18/20 24 06/19/2024 CBC (INCL UDES DIFF/ PLT) red blood cell count 4.06 constantino on/uL 3.80-5 .10 normal Not Available [address], [address], 06/19/2024 04:37:37 06/18/20 24 06/19/2024 CBC (INCL UDES DIFF/ PLT) hemoglobin 12.9 g/dL 11.7-1 5.5 normal Not Available [address], [address], 06/19/2024 04:37:37 06/18/20 24 06/19/2024 CBC (INCL UDES DIFF/ PLT) hematocrit 39.9 % 35.0-4 5.0 normal Not Available [address], [address], 06/19/2024 04:37:37 06/18/20 24 06/19/2024 CBC (INCL UDES DIFF/ PLT) MCV 98.3 fL 80.0-1 00.0 normal Not Available [address], [address], 06/19/2024 04:37:37 06/18/20 24 06/19/2024 CBC (INCL UDES DIFF/ PLT) MCH 31.8 pg 27.0-3 3.0 normal Not Available [address], [address], 06/19/2024 04:37:37 06/18/20 24 06/19/2024 CBC (INCL UDES DIFF/ PLT) MCHC 32.3 g/dL 32.0-3 6.0 normal For adult s, a sligh t decre ase in the calcu lated MCHC value (in the range of 30 to 32 g/dL) is most likel y not clini hussein signi mihaelaan t; leandro er, it shoul d be inter prete d with cauti on in corre latio n with other red cell desi eters and the patie nt's clini devon condi tion. Not Available [address], [address], 06/19/2024 04:37:37 06/18/20 24 06/19/2024 CBC (INCL UDES DIFF/ PLT) RDW 11.9 % 11.0-1 5.0 normal Not Available [facility] [address], [address], 06/19/2024 04:37:37 06/18/2006/19/2024 CBC (INCL UDES DIFF/ PLT) platelet count 197 thous and/u L 140-40 0 normal Not Available [address], [address], 06/19/2024 04:37:37 06/18/20 24 06/19/2024 CBC (INCL UDES DIFF/ PLT) MPV 10.0 fL 7.5-12 .5 normal Not Available [address], [address], 06/19/2024 04:37:37 06/18/20 24 06/19/2024 CBC (INCL UDES DIFF/ PLT) absolute neutrophils 3665 cells /uL 1500-7 800 normal Not Available [address], [address], 06/19/2024 04:37:37 06/18/20 24 06/19/2024 CBC (INCL UDES DIFF/ PLT) absolute lymphocytes 1636 cells /uL 850-39 00 normal Not Available [address], [address], 06/19/2024 04:37:37 06/18/20 24 06/19/2024 CBC (INCL UDES DIFF/ PLT) absolute monocytes 239 cells /uL 200-95 0 normal Not Available [address], [address], 06/19/2024 04:37:37 06/18/20 24 06/19/2024 CBC (INCL UDES DIFF/ PLT) absolute eosinophils 131 cells /uL 15-500 normal Not Available [address], [address], 06/19/2024 04:37:37 06/18/2006/19/2024 CBC (INCL UDES DIFF/ PLT) absolute basophils 29 cells /uL 0-200 normal Not Available [address], [address], 06/19/2024 04:37:37 06/18/20 24 06/19/2024 CBC (INCL UDES DIFF/ PLT) neutrophils 64.3 % normal Not Available [address], [address], 06/19/2024 04:37:37 06/18/20 24 06/19/2024 CBC (INCL UDES DIFF/ PLT) lymphocytes 28.7 % normal Not Available [address], [address], 06/19/2024 04:37:37 06/18/2006/19/2024 CBC (INCL UDES DIFF/ PLT) monocytes 4.2 % normal Not Available [address], [address], 06/19/2024 04:37:37 06/18/20 24 06/19/2024 CBC (INCL UDES DIFF/ PLT) eosinophils 2.3 % normal Not Available [address], [address], 06/19/2024 04:37:37 06/18/20 24 06/19/2024 CBC (INCL UDES DIFF/ PLT) basophils 0.5 % normal Not Available [facility] [address] [address] [place], [address], 06/19/2024 04:37:37 06/18/20 24 06/19/2024 HEMOG LOBIN A1C hemoglobin A1C 5.2 %_of_ total _HGB <5.7 normal For the purpo se of emi saavedrag for the prese nce of diabe bear: [...] Care in Diabe bear(A DA). Not Available [facility] [address] [address] [place], [address], 06/19/2024 04:37:39 08/27/20 24 08/28/2024 TSH+F REE T4 TSH 1.17 mIU/L 0.40-4 .50 normal Not Available [facility] [address] [address] [place], [address], 08/28/2024 03:46:22 08/27/20 24 08/28/2024 TSH+F REE T4 T4, free 1.7 NG/dL 0.8-1. 8 normal Not Available [facility] [address] [address] [place], [address], 08/28/2024 03:46:22 09/16/19 25 09/16/2024 urina lysis , dipst ick Leukocytes Negati ve Not Available [facility] [address], [place], [address], 09/09/2024 10:20:42 09/16/19 25 09/16/2024 urina lysis , dipst ick Nitrite negati ve Not Available [facility] [address], [place], [address], 09/09/2024 10:20:42 09/16/19 25 09/16/2024 urina lysis , dipst ick Urobilinogen .2 Not Available [facility] [address], [place], [address], 09/09/2024 10:20:42 09/16/19 25 09/16/2024 urina lysis , dipst ick Protein Trace Not Available [facility] [address], [place], [address], 09/09/2024 10:20:42 09/16/19 25 09/16/2024 urina lysis , dipst ick pH 7.0 Not Available [facility] [address], [place], [address], 09/09/2024 10:20:42 09/16/19 25 09/16/2024 urina lysis , dipst ick Blood Modera te Not Available [facility] [address], [place], [address], 09/09/2024 10:20:42 09/16/19 25 09/16/2024 urina lysis , dipst ick Specific [place] 1.005 Not Available [facility] [address], [place], [address], 09/09/2024 10:20:42 09/16/19 25 09/16/2024 urina lysis , dipst ick Ketone Negati ve Not Available [facility] [place], [facility] [address], [place], [address], 09/09/2024 10:20:42 09/16/19 25 09/16/2024 urina lysis , dipst ick Bilirubin Negati ve Not Available [facility] [address], [place], [address], 09/09/2024 10:20:42 09/16/19 25 09/16/2024 urina lysis , dipst ick Glucose Negati ve Not Available [facility] [place], [facility] [address], [place], [address], 09/09/2024 10:20:42 09/16/19 25 09/16/2024 urina lysis , dipst ick Appearance Clear Not Available [facility] [address], [place], [address], 09/09/2024 10:20:42 09/16/19 25 09/16/2024 urina lysis , dipst ick Color Pale Yellow Not Available [facility] [address] [facility] [facility] [address], [place], [address], 09/09/2024 10:20:42 12/12/19 24 12/12/2023 MAMMO , scree delores, digit al, bilat eral No observ ation record ed. [facility] [address], [place], [address], 06/20/2024 00:49:12 12/14/19 24 12/12/2023 MAMMO , scree delores, digit al, bilat eral No observ ation record ed. [facility] [address], [place], [address], 06/20/2024 00:49:12 12/14/19 24 12/12/2023 MAMMO , scree delores, digit al, bilat eral No observ ation record ed. [facility] [address], [place], [address], 06/20/2024 00:49:13 03/18/20 24 03/17/2024 MAMMO , diagn ostic , digit al, unila teral No observ ation record ed. [address], [place], [address], 06/05/2024 10:20:04 05/15/20 24 2024 US, echo ardio gram No observ ation record ed. [facility] Not Available 2023 10:18:09 06/07/20 24 05/02/2024 US, echoc ardio gram No observ ation record ed. [address], [place], [address], 09/09/2024 10:17:48 06/24/20 24 06/23/2024 US, thyro id No observ ation record ed. [address], [place], [address], 09/09/2024 10:17:48 09/09/20 24 09/02/2024 elect jennifer thomas am No observ ation record ed. [facility] [address], [place], [address], 09/10/2024 17:44:01 Result Notes None recorded. Problems Name Problem SNOMED Code Status Onset Date Resolution Date Notes Provider Name and Address Organization Details Recorded Time Menopaus e Active 2023 Adela Umana MD [address], [place], [address] , [place] [facility] 10:17:28 Hashimot o thyroidi tis 40261764 Active 2023 Adela Umana MD [address], [place], [address] , [place] [facility] 4 21:09:59 Divertic ulitis 629182656 Completed 08/15/2016 Adela Umana MD [address], [place], [address] , [place] [facility] 6 12:18:07 Benign hyperten eric 48559963 Active Not Available [facility] 2 07:14:14 Hyperlip idemia 43268773 Active Not Available [facility] 2 07:14:14 Hypothyr oidism 50539504 Active Not Available [facility] 2 07:14:14 Low back pain 077696628 Active Not Available [facility] 2 07:14:13 Menopaus e present 910625681 Active Not Available [facility] 2 07:14:14 Mitral valve regurgit ation 22606910 Active Not Available [facility] 2 07:14:13 Non-toxi c multinod ular goiter 95637165 Active Not Available [facility] 2 07:14:13 Osteoart hritis 959715078 Active 2016 Not Available [facility] 2 07:14:13 Left ventricu lar hypertro phy 24938131 Active 2017 Not Available [facility] 2 07:14:13 Body mass index 30+ - obesity 678055876 Active 2018 Not Available [facility] 2 07:14:14 Vitamin D deficien cy 87774931 Active 2018 Not Available [facility] 2 07:14:13 Osteopen ia 435781094 Active 2019 Not Available [facility] 2 07:14:14 Thyroid function tests abnormal 399899581 Active 2019 Not Available [facility] 2 07:14:14 Gastroes ophageal reflux disease without esophagi tis 169788126 Active 2019 Not Available [facility] 2 07:14:14 Microsco pic hematuri a 373584676 Active 2021 Not Available [facility] 2 07:14:13 Allergic rhinitis caused by pollen 49376338 Active 2021 Not Available [facility] 2 07:14:14 Atrial fibrilla tion 37953668 Active 2022 Adela Umana MD [address], [place], [address] , [facility] 3 10:55:25 Coronary arterios clerosis 93792211 Active 2022 on cardiac cath 06/2023 per pt Adela Umana MD [address], [place], [address] , [facility] 3 10:50:20 Long-ter m drug therapy Active 2023 Adela Umana MD [address], [place], [address] , [facility] 4 11:13:44 Problem Notes None recorded. Procedures Surgical History Date Name Laterality Status Provider Name and Address Organization Details Recorded Time 05/11/20 21 Date of Last Mammogram completed Praveena Marie [facility] 11/10/2021 11:27:51 06/09/20 20 Colonoscopy completed Adela Umana MD [address], [place], [address], [facility] 06/09/2020 19:34:41 02/09/20 20 Date of Last Pap Smear completed SEAN YOUNG [facility] 04/08/2020 09:36:11 09/08/20 15 Date of Last Colonoscopy completed Gayatri Kennedy [facility] 02/12/2018 12:19:40 10/12/19 10 Colonoscopy completed Gayatriprudencio Kennedy [facility] 02/14/2016 09:02:47 Tonsillectomy completed Gayatriprudencio Kennedy [facility] 02/14/2016 09:02:52 Imaging Results Imaging Date Name Status LastModified by Organization Details LastModified Time 12/12/2023 MAMMO, screening, digital, bilateral completed [facility] [address], [place], [address], 06/20/2024 00:49:12 12/12/2023 MAMMO, screening, digital, bilateral completed [facility] [address], [place], [address], 06/20/2024 00:49:12 12/12/2023 MAMMO, screening, digital, bilateral completed [facility] [address], [place], [address], 06/20/2024 00:49:13 03/17/2024 MAMMO, diagnostic, digital, unilateral completed [address], [address], 06/05/2024 10:20:04 2024 US, echocardiogram completed [facility] not available 06/05/2024 10:18:09 05/02/2024 US, echocardiogram completed [address], [address], 09/09/2024 10:17:48 06/23/2024 US, thyroid completed [address], [address], 09/09/2024 10:17:48 09/02/2024 electrocardiogram completed [facility] [address] [place] [address] [address], [place], [address], 09/10/2024 17:44:01 Procedure Notes None recorded. Medical Equipment None Reported. Allergies Allergen ID Allergen Name Allergen Category Reaction Reaction Severity Criticality Documentation Date Start Date Code Code System Note Provider Name and Address Organization Details Recorded Time 1882 Niaspan medicatio n Not available Not available Not available 02/14/2016 10007 6 RxNorm Not Available Not Available Not Available 1884 Pravachol medicatio n Not available Not available Not available 02/14/201681366 3 RxNorm Not Available Not Available Not Available 188 Substance with sulfonami de structure and antibacte rial mechanism of action (substanc e) medicatio n Not available Not available Not available 02/14/2016 28023 8003 SNOMED Not Available Not Available Not Available 188 Zocor medicatio n Not available Not available Not available 02/14/2016 89431 3 RxNorm Not Available Not Available Not Available Medications Name Sig Start Date Stop Date [...] TAKE 1 TABLET BY MOUTH ONCE DAILY 08/07 /2023 completed Not Available Not Available Not Available triamcinolo ne acetonide 0.1 % topical cream APPLY TO THE AFFECTED AREA TWICE DAILY NEEDED FOR RASH active Not Available Not Available No t Available cefadroxil 500 mg capsule 10/27 completed Not Available Not Available Not Available levothyroxi ne 100 mcg tablet TAKE 1 TABLET BY MOUTH EVERY DAY IN THE MORNING 2024 active Not Available Not Available Not Avai lable famotidine 20 mg tablet Take 1 tablet [...] Available Not Available Not Available amoxicillin 875 mg-potneilu m clavulanate 125 mg tablet 08/15 completed [...] Not Available Not Avai lable Fluzone High-Dose 2019-20 (PF) 180 mcg/0.5 mL intramuscul ar syringe PHARMACIS T ADMINISTE RED IMMUNIZAT ION ADMINISTE RED AT TIME OF DISPENSIN G 04/08 completed Not Available Not Available Not Available Fluzone High-Dose Quad 2019- (PF) 240 mcg/0.7 mL IM syringe PHARMACIS [...] Updated DateTime 07/18/2023 162.[address] [facility] 07/18/2023 09:57:17 Date Recorded Body mass index (BMI) Body weight Body temperature Respiratory rate Heart rate Systolic blood pressure Diastolic blood pressure Provider Name and Address Organization Details Last Updated DateTime 3 31.4 kg/m2 32448.4 g 98.1 [degF] 16 /min 57 /min 137 mm[Hg] 76 mm[Hg] Rohini Brody [facility] 3 10:04:05 Date Recorded Body height Body mass index (BMI) Body weight Body temperature Respiratory rate Heart rate Systolic blood pressure Diastolic blood pressure Provider Name and Address Organization Details Last Updated DateTime 4 162.56 cm 30.4 kg/m2 02858.8 5 g 98.4 [degF] 16 /min 58 /min 123 mm[Hg] 68 mm[Hg] Rohini Brody [facility] 4 10:43:39 Date Recorded Body height Body temperature Body mass index (BMI) Body weight Respiratory rate Heart rate Systolic blood pressure Diastolic blood pressure Provider Name and Address Organization Details Last Updated DateTime 4 162.56 cm 98.1 [degF] 30 kg/m2 72916.6 6 g 16 /min 66 /min 121 mm[Hg] 76 mm[Hg] [facility] 10:[facility]19 Date Recorded Body height Body temperature Respiratory rate Heart rate Body mass index (BMI) Body weight Systolic blood pressure Diastolic blood pressure Provider Name and Address Organization Details Last Updated DateTime 4 162.56 cm 98.1 [degF] 16 /min 55 /min 31.4 kg/m2 06976.4 g 138 mm[Hg] 65 mm[Hg] [facility] 10:12:52 Date Recorded Body height Respiratory rate Heart rate Body temperature Body mass index (BMI) Body weight Provider Name and Address Organization Details Last Updated DateTime 4 162.56 cm 16 /min 60 /min 97.4 [degF] 32.3 kg/m2 13724.[address] [facility] 4 09:57:20 Date Recorded Systolic blood pressure Diastolic blood pressure Provider Name and Address Organization Details Last Updated DateTime 09/09/2024 134 mm[Hg] 79 mm[Hg] Adela Umana MD [address] [facility] [address], [place], [address], [place] - [facility] 09/09/2024 10:25:01 Social History Question Answer Notes LastModified by Organizat ion Details LastModified Time Tobacco Smoking Status Never Smoker Not Available [facility] 06/25/2020 03:11:41 Do You Have An Advance Directive? Yes [email or web address] Information n ot available 07/30/2020 What Is Your Level Of Alcohol Consumption? None [id number] Information not available 06/25/2020 In The 14 Days Before Symptom Onset, Have You Had Close Contact With A Laboratory-confirm ed COVID-19 While That Case Was Ill? No [email or web address] Information n ot available 07/30/2020 In The 14 Days Before Symptom Onset, Have You Had Close Contact With A Person Who Is Under Investigation For COVID-19 While That Person Was Ill? No [email or web address] Information not available 07/30/2020 Have You Been To An Area Known To Be High Risk For COVID-19? No [email or web address] Information not available 07/30/2020 Have You Directly Handled Bats, Rodents, Or Primates From Ebola Endemic Areas? No Information not available 03/18/2021 Have You Processed Blood Or Body Fluids From An Ebola Virus Disease Patient Without Appropriate PPE? No [email or web address] Information not available 03/18/2021 Have You Had Household Contact With An Ebola Virus Disease Patient? No [email or web address] Information not available 03/18/2021 Have You Had Direct Contact With A Body In An Ebola-affected Area Without Appropriate PPE? No [email or web address] Information not available 03/18/2021 Have You Had Percutaneous (e.g. Needle Stick) Or Mucous Membrane Exposure To Blood Or Body Fluids From An Ebola Virus Disease Patient? No [email or web address] Information not available 03/18/2021 Have You Had Other Close Contact With An Ebola Virus Disease Patient In Health Care Facilities Or Community Settings? No [email or web address] Information not available 03/18/2021 Do You Reside In Or Have You Traveled To An Area Where Ebola Virus Transmission Is Active? No [email or web address] Information not available 03/18/2021 Live Alone Or With Others? With Others [email or web address] Information not available 02/14/2016 What Was The Date Of Your Most Recent Tobacco Screening? 11/10/2021 [email or web address] Information not available 11/10/2021 Sex: Unknown Functional Status None recorded. Mental Status None recorded. Family History Relationship Description Onset Age of this Age Resolved Age Notes LastModified by Organization Details LastModified Time Father Coronary arterioscler [email or web address] 81 Not available 2015 09:03:15 Mother Coronary arterioscler osis 85 [email or web address] Not available 2015 09:03:15 Mother Myocardial infarction [email or web address] Not available 02/13 09:03:25 Mother Epilepsy Not availabl e 02/14/2016 09:03:33 Mother Cerebrovascu lar accident [email or web address] Not available 02/2016 09:03:39 Medical History Condition [...] high-dose, trivalent, PF 8 completed Not Available [facility] 07/24/2022 07:14:14 pneumococcal polysaccharide PPV23 8 completed Not Available [facility] 07/24/2022 07:14:14 Influenza, high-dose, trivalent, PF 0 completed Not Available [facility] 07/24/2022 07:14:14 Influenza, split virus, quadrivalent, preservative 0 completed Not Available [facility] 07/24/2022 07:14:14 COVID-19, mRNA, LNP-S, PF, 30 mcg/0.3 mL dose 2 completed Not Available [facility] 07/24/2022 07:14:14 Td(adult) unspecified formulation 8 completed Not Available [facility] 07/24/2022 07:14:14 Influenza, split virus, trivalent, preservative 6 completed Not Available [facility] 09/27/2019 02:27:22 Pneumococcal conjugate PCV 13 7 completed Not Available [facility] 07/24/2022 07:14:14 Past Encounters Encounter ID Performer Location Encounter Start Date Encounter Closed Date Diagnosis/Indication Diagnosis SNOMED-CT Code Diagnosis ICD10 Code Diagnosis Note [id number] Adela Umana MD [employer] [address] [place] [address] 02/14/2016 12:27:39 02/14/2016 13:28:22 Benign hypertension 78881683 I10 Menopause present 778991 006 N95.1 Non-toxic multinodular goiter 28983699 E04.2 Hypothyroidism 79715408 E03.9 Hyperlipidemia 66478575 E78.5 Viral screening 94009522 4 Z11.59 Active or passive immunization 435912230 Z23 Osteoarthritis 678832919 M19.90 [id number] Adela Umana MD [employer] [address] [place] [address] 08/15/2016 12:06:02 08/15/2016 12:37:47 Benign hypertension 93915142 I10 Hypothyroidism 11339572 E03.9 Hyperlipidemia 80763712 E78.5 Aortic esteban ve regurgitation 38160428 I35.1 mild on ECHO 11/2014 Active or passive immunization 420400345 Z23 Vitamin D deficiency 347 54260 E55.9 Osteoarthritis 656388823 M19.90 [id number] Paulina Aguilera, ANP-BC [employer] [facility], [facility] [address] [place] [address] 09/07/2016 10:11:31 09/07/2016 12:10:58 Adult health examination 573324884 Z00.00 Benign hypertension 1072 5009 I10 Managed with medication . Normal CBC, creatine kinase 08/18/16 CMP normal 02/16/16 Hypothyroidism 12897630 E03.9 Normal TSH, controlled with medication Hyperlipidemia 21770915 E78.5 Normal Lipid panel 08/18/16, controlled with medicaiton Aortic esteban ve regurgitation 57483182 I35.1 mild on ECHO 11/2014 Active or passive immunization 201645059 Z23 Pneumovax and Zostavax ordered Vitamin D deficiency 347 61470 E55.9 Osteoarthritis 408164601 M19.90 [id number] Adela Umana MD [employer] [facility], [facility] [address] [place] [address] 02/13/2017 11:39:36 02/13/2017 12:58:28 Benign hypertension 30048229 I10 Hypothyroidism 50605590 E03.9 Hyperlipidemia 26144618 E78.5 Osteoarthritis 078283429 M19.90 Vitamin D deficiency 347 68045 E55.9 Non-toxic multinodular goiter 76913218 E04.2 Screening mammography 24 706345 Z12.31 per pt had mammogram 01/2017 @ [facility] [id number] Adela Umana MD [employer] [facility], [facility] [address] [place] [address] 08/15/2017 11:43:25 08/15/2017 12:39:36 Benign hypertension 34539401 I10 sees ophth every year Osteoarthritis 409897258 M19.90 Hypothyroidism 82753510 E03.9 Hyperlipidemia 55974671 E78.5 Non-toxic multinodular goiter 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 E04.2 Osteopenia 632814145 M85 .862 Screening mammography 24 357035 Z12.31 per pt had mammogram 12/2016 @ [facility] Active or passive immunization 026140500 Z23 Screening for malignant neoplasm of colon 943933780 Z12.11 last C scope 09/08/15 , good till 2020 Abdominal pain 67077824 R10.9 suprapubic , mild , education , BO[place] [place]ER eval PRN [id number] Adela Umana MD [employer], [facility] [address] [place] [address] 02/12/2018 12:12:37 02/12/2018 13:10:23 Gastroesophageal reflux disease without esophagitis 910566001 K21.9 Contact dermatitis 30357 004 L25.9 Benign hypertension 1072 5009 I10 sees ophth every year Hypothyroidism 97742675 E03.9 Screening for malignant neoplasm of cervix 848713337 Z12.4 per pt had PAP 01/2018 Active or passive immunization 699674321 Z23 [id number] Adela Umana MD [employer], [facility] [address] [place] [address] 05/15/2018 11:53:53 05/15/2018 13:10:09 Low back pain 478337582 M54.5 Pain in right knee 21783 43907 13377 M25.561 Benign hypertension 1072 5009 I10 sees ophth every year , just seen optometry 04/2018 Non-toxic multinodular goiter 00242317 E04.2 last US 08/22/17 Hypothyroidism 58019634 E03.9 Hyperlipidemia 39544495 E78.5 Screening mammography 24 242051 Z12.31 per pt had mammogram 01/21/18 [facility] Screening for malignant neoplasm of cervix 983020178 Z12.4 per pt had PAP 01/2018 Screening for malignant neoplasm of colon 354098241 Z12.11 last C scope 09/08/15 , good till 2020 Active or passive immunization 251290315 Z23 [id number] Adela Umana MD [employer], [facility] [address] [place] [address] 08/28/2018 11:46:08 08/28/2018 12:43:32 Benign hypertension 08251429 I10 sees ophth every year , just seen optometry 04/2018 Osteoarthritis 736586745 M19.90 Hypothyroidism 35105447 E03.9 with MNG , recheck US Hyperlipidemia 42896691 E78.5 pls take prava Allergic r hinitis caused by pollen 38347592 J30.1 Low back pain 622788905 M54.5 a lot better with PT Screening mammography 24 978681 Z12.31 per pt had mammogram 01/21/18 @ [facility] Screening for malignant neoplasm of cervix 828535553 Z12.4 per pt had PAP 01/2018 Screening for malignant neoplasm of colon 728979177 Z12.11 last C scope 09/08/15 , good till 2020 Active or passive immunization 163405086 Z23 Left ventr icular hypertrophy 08913127 I51.7 mild on ECHO 08/2018 , recheck [id number] Adela Umana MD [employer] [address] [place] [address] 12/19/2018 10:16:40 12/19/2018 11:07:45 Adult health examination 914044406 Z00.01 Benign hypertension 1072 5009 I10 sees ophth every year , just seen optometry 04/2018last EKG 05/15/18 Body mass index 30+ - obesity 528733822 Z68.33 Menopause present 804318 006 N95.1 last DEXA 08/15/17 Non-toxic multinodular goiter 52611750 E04.2 last US 09/04/18 Osteoarthritis 647851845 M19.90 stable Hypothyroidism 71250134 E03.9 with MNG , recheck US Hyperlipidemia 21737302 E78.5 pls take prava Left ventr icular hypertrophy 04794293 I51.7 mild on ECHO 09/2018 @ cardiology , will get copy Screening mammography 24 106556 Z12.31 per pt had mammogram 01/21/18 @ [facility] Screening for malignant neoplasm of cervix 775629348 Z12.4 per pt had PAP 01/2018 Screening for malignant neoplasm of colon 562787565 Z12.11 last C scope 09/08/15 , good till 2020 Active or passive immunization 541346289 Z23 Ingrowing toenail 153506 009 L60.0 [id number] Adela Umana MD [employer] [employer] [address] [place] [address] 06/23/2019 15:44:15 06/23/2019 16:55:11 Preoperative cardiovascular examination 586719489 Z01.810 [place] for cataract surg under mac Eruption 276552058 R21 Benign hypertension 1072 5009 I10 sees ophth every year , just seen optometry 04/2018last EKG 05/15/18 Vitamin D deficiency 347 85852 E55.9 Hypothyroidism 03379245 E03.9 with MNG , recheck US Screening mammography 24 997514 Z12.31 per pt had mammogram 01/2919 @ [facility] Screening for malignant neoplasm of cervix 469554041 Z12.4 per pt had PAP 01/2018 Screening for malignant neoplasm of colon 273295390 Z12.11 last C scope 09/08/15 , good till 2020 Active or passive immunization 036396561 Z23 Non-toxic multinodular goiter 94593602 E04.2 last US 09/04/18 Hyperlipidemia 27448912 E78.5 pls take prava [id number] Adela Umana MD [employer] [employer] [address] [place] [address] 10/13/2019 11:00:40 10/13/2019 11:26:19 Benign hypertension 07360121 I10 sees ophth every year , just seen optometry 07/2019las t EKG 05/15/18 Body mass index 30+ - obesity 633542824 Z68.33 education Hyperlipidemia 35050567 E78.5 pls take prava Hypothyroidism 29704467 E03.9 with MNG , recheck USlast TSH 08/11/19 Non-toxic multinodular goiter 04367827 E04.2 last US 09/04/18 Vitamin D deficiency 347 70849 E55.9 last level 08/11/19 Osteopenia 672962129 M85 .862 last DEXA 08/15/2017 Screening mammography 24 798095 Z12.31 per pt had mammogram 01/2919 @ [place] Screening for malignant neoplasm of cervix 692484614 Z12.4 per pt had PAP 01/2018 Screening for malignant neoplasm of colon 359743876 Z12.11 last C scope 09/08/15 , good till 2020 Active or passive immunization 848800497 Z23 Eruption 038008199 R21 [id number] Adela Umana MD [employer] [address] [place] [address] 04/08/2020 09:23:48 04/08/2020 10:21:39 Adult health examination 256709660 Z00.01 Benign hypertension 1072 5009 I10 sees ophth every year , just seen optometry 07/2019las t EKG 10/13/19 Hyperlipidemia 87359268 E78.5 last LDL 03/2020 @ goal on prava Hypothyroidism 99074849 E03.9 with MNG ,last TSH 03/25/20 Mitral esteban ve regurgitation 36406994 I34.0 sees cardiology on reg basis Non-toxic multinodular goiter 82526431 E04.2 last US 10/22/19 Osteoarthritis 596140628 M19.90 stable Osteopenia 169076554 M85 .862 last DEXA 10/16/19 Vitamin D deficiency 347 55544 E55.9 last level 08/11/19 Body mass index 30+ - obesity 824872583 Z68.33 education Thyroid fu nction tests abnormal 274471316 R94.6 Screening mammography 24 138962 Z12.31 per pt had mammogram 01/2919 @ [place] Screening for malignant neoplasm of cervix 625210517 Z12.4 per pt had PAP 01/2020 Screening for malignant neoplasm of colon 931509754 Z12.11 last C scope 09/08/15 , good till 2019 Active or passive immunization 695251005 Z23 Hyperkalemia 99878308 E8 7.5 Hyperglycemia 86389499 R 73.9 Gastroesop hageal reflux disease without esophagitis 546647220 K21.9 [id number] Adela Umana MD [facility] [address] [place] [address] 07/30/2020 09:51:38 07/30/2020 10:50:12 Benign hypertension 16060005 I10 sees ophth every year , just seen optometry 04/2020last EKG 10/13/19 Body mass index 30+ - obesity 500504180 Z68.33 education Hypothyroidism 08055183 E03.9 with MNG ,last TSH 03/25/20 Non-toxic multinodular goiter 16683423 E04.2 last US 10/22/19 Osteopenia 194494133 M85 .862 last DEXA 10/16/19 Vitamin D deficiency 347 04601 E55.9 last level 08/11/19 Screening mammography 24 088017 Z12.31 per pt had mammogram 04/14/20 Screening for malignant neoplasm of cervix 696988175 Z12.4 per pt had PAP 01/2020 Screening for malignant neoplasm of colon 750377697 Z12.11 last C scope 06/09/2020 , good for 5 years Active or passive immunization 695694548 Z23 up to date [id number] Adela Umana MD [employer], [facility] [address] [place] [address] 10/27/2020 10:28:48 10/27/2020 11:28:34 Preoperative cardiovascular examination 451793752 Z01.810 [place] for blepharopl asty surg under mac Benign hypertension 1072 5009 I10 sees ophth every year , just seen optometry 04/2020last EKG 10/13/19 Body mass index 30+ - obesity 437008231 Z68.33 education Hyperlipidemia 04478611 E78.5 last LDL 03/2020 @ goal on prava Hypothyroidism 47433632 E03.9 with MNG ,last TSH 03/25/20 Osteopenia 400297471 M85 .862 last DEXA 10/16/19 Vitamin D deficiency 347 40658 E55.9 last level 04/10/20 Non-toxic multinodular goiter 08799562 E04.2 last US 10/22/19 [place] thyroiditis 21 604064 E06.3 per endo note 06/15/20 Screening mammography 24 473620 Z12.31 per pt had mammogram 04/14/20 Screening for malignant neoplasm of cervix 418873845 Z12.4 per pt had PAP 01/2020 Screening for malignant neoplasm of colon 112705519 Z12.11 last C scope 06/09/2020 , good for 5 years Active or passive immunization 836447778 Z23 up to date [id number] Adela Umana MD [employer], [facility] [address] [place] [address] 03/18/2021 09:30:25 03/18/2021 10:37:48 Benign hypertension 64625114 I10 sees ophth every year , just seen optometry 10/20/20las t EKG 10/13/19 Body mass index 30+ - obesity 806119612 Z68.33 education Osteopenia 514730297 M85 .862 last DEXA 10/16/19with Rt 5th metatarsal Fxwill start fosamax Hyperlipidemia 99432218 E78.5 last LDL 12/07/20 @ goal on prava Hypothyroidism 33253003 E03.9 with MNG ,last TSH 10/28/20 Left ventr icular hypertrophy 82955150 I51.7 mild on ECHO 09/2018 @ cardiology , will get copy Non-toxic multinodular goiter 13038705 E04.2 last US 11/16/20 Screening mammography 24 964309 Z12.31 per pt had mammogram 04/14/20 Screening for malignant neoplasm of cervix 902936469 Z12.4 per pt had PAP 01/2020 Screening for malignant neoplasm of colon 139794096 Z12.11 last C scope 06/09/2020 , good for 5 years Active or passive immunization 325801334 Z23 up to date [id number] Adela Umana MD [employer] [address] [place] [address] 06/09/2021 10:41:18 06/09/2021 12:05:02 Adult health examination 889225968 Z00.01 Benign hypertension 1072 5009 I10 sees ophth every year , just seen optometry 10/20/20las t EKG 03/21/21 Body mass index 30+ - obesity 766218937 Z68.33 education Gastroesop hageal reflux disease without esophagitis 147336208 K21.9 stable Hyperlipidemia 00327870 E78.5 last LDL 12/07/20 @ goal on prava Hypothyroidism 94658846 E03.9 with MNG ,last TSH 03/22/21 Left ventr icular hypertrophy 02681516 I51.7 mild on ECHO 09/2018 @ cardiology , Low back pain 146314258 M54.5 a lot better with PT Menopause present 536730 006 N95.1 last DEXA 10/16/19 Non-toxic multinodular goiter 42077429 E04.2 last US 11/16/20 Osteoarthritis 220042654 M19.90 stable Osteopenia 219581076 M85 .862 last DEXA 10/16/19with Rt 5th metatarsal Fxwill start fosamax Vitamin D deficiency 347 35646 E55.9 last level 03/22/21 Screening mammography 24 224684 Z12.31 per pt had mammogram 05/11/21 Screening for malignant neoplasm of cervix 094344524 Z12.4 per pt had PAP 01/2020 Screening for malignant neoplasm of colon 004792233 Z12.11 last C scope 06/09/2020 , good for 5 years Active or passive immunization 294256381 Z23 up to date Hearing sc reening status 950167336 Z13.5 [id number] Adela Umana MD [employer] [facility], [facility] [address] [place] [address] 11/10/2021 11:16:42 11/10/2021 11:55:04 Benign hypertension 05287397 I10 sees ophth every year , just seen optometry 10/20/20las t EKG 03/21/21 Body mass index 30+ - obesity 155393516 Z68.33 education Gastroesop hageal reflux disease without esophagitis 657909680 K21.9 stable Hyperlipidemia 57838945 E78.5 last LDL 09/05/21 @ goal on prava Hypothyroidism 84326643 E03.9 with MNG ,last TSH 09/05/21 Left ventr icular hypertrophy 59551930 I51.7 mild on ECHO 09/2018 @ cardiology , Menopause present 954886 006 N95.1 last DEXA 10/16/19 Non-toxic multinodular goiter 88220213 E04.2 last US 11/16/20 Osteoarthritis 196324558 M19.90 stable Vitamin D deficiency 347 43924 E55.9 last level 03/22/21 Screening mammography 24 718642 Z12.31 per pt had mammogram 05/11/21 Screening for malignant neoplasm of cervix 350983894 Z12.4 per pt had PAP 01/2020 Screening for malignant neoplasm of colon 751831640 Z12.11 last C scope 06/09/2020 , good for 5 years Active or passive immunization 992397292 Z23 up to date Low back pain 674983081 M54.50 [id number] Adela Umana MD [employer] [employer] [address] [place] [address] 03/28/2022 09:54:02 03/28/2022 10:51:56 Benign hypertension 08009001 I10 sees ophth every year , just seen optometry 01/27/22las t EKG 03/21/21 Osteopenia 047524999 M85 .862 last DEXA 12/07/21wit h Rt 5th metatarsal Fxon fosamax Allergic r hinitis caused by pollen 02085204 J30.1 Body mass index 30+ - obesity 237313938 Z68.33 education Hypothyroidism 55410189 E03.9 with MNG ,last TSH 09/05/21 Hyperlipidemia 10362177 E78.5 last LDL 09/05/21 @ goal on prava Left ventr icular hypertrophy 22991563 I51.7 mild on ECHO 09/2018 @ cardiology , Palpitations 80961342 R0 0.2 H/O PVC and MVPrecheck ECHO Screening mammography 24 106898 Z12.31 per pt had mammogram 05/11/21 Screening for malignant neoplasm of cervix 745394018 Z12.4 per pt had PAP 01/2020 Screening for malignant neoplasm of colon 687212939 Z12.11 last C scope 06/09/2020 , good for 5 years Active or passive immunization 118692719 Z23 up to date [id number] Adela Umana MD [facility] [address] [place] [address] 10/16/2022 10:00:15 10/16/2022 11:07:02 Adult health examination 441035338 Z00.01 Benign hypertension 1072 5009 I10 sees ophth every year , just seen optometry 01/27/22las t EKG 04/20/22 Body mass index 30+ - obesity 639530042 Z68.33 education Gastroesop hageal reflux disease without esophagitis 514388413 K21.9 stable Hyperlipidemia 90771676 E78.5 last LDL 03/29/22 @ goal on prava Hypothyroidism 49989657 E03.9 with MNG ,last TSH 03/29/22 Left ventr icular hypertrophy 13788948 I51.7 mild on ECHO 04/2022 per pt Menopause present 397254 006 N95.1 last DEXA 12/07/21 Low back pain 600913640 M54.50 stable Allergic r hinitis caused by pollen 81130200 J30.1 stable Microscopic hematuria [address] 12/07/21 , seen urology Mitral esteban ve regurgitation 96468804 I34.0 sees cardiology on reg basis Non-toxic multinodular goiter 79841025 E04.2 last US 12/07/21 Osteoarthritis 732224260 M19.90 stable Osteopenia 082608004 M85 .862 last DEXA 12/07/21wit h Rt 5th metatarsal Fxon fosamax Thyroid fu nction tests abnormal 052376997 R94.6 recheck Vitamin D deficiency 347 91965 E55.9 last level 03/29/22 Screening mammography 24 652409 Z12.31 per pt had mammogram 07/07/22 Screening for malignant neoplasm of cervix 868209747 Z12.4 per pt had PAP 01/2022 Screening for malignant neoplasm of colon 281459005 Z12.11 last C scope 06/09/2020 , good for 5 years Active or passive immunization 463945162 Z23 up to datedeclin e flu Advance di rective discussed with patient 372739911 Z71.89 education Intermitte nt palpitations 399638807 R00.2 [id number] Adela Umana MD [employer], [employer] [address] [place] [address] 04/16/2023 09:58:24 04/16/2023 11:05:30 Benign hypertension 41390690 I10 sees ophth every year , just seen optometry 01/27/22las t EKG 04/20/22 Atrial fibrillation 4943 6004 I48.91 on holter per pt , will get copyantico agulation safty education Body mass index 30+ - obesity 457093386 Z68.33 educationd own 5 LBs on diet Hyperlipidemia 87230535 E78.5 last LDL 10/19/22 @ goal on prava Hypothyroidism 13594745 E03.9 with MNG ,last TSH 03/29/22 Microscopic hematuria [address] 12/07/21 , seen urology Non-toxic multinodular goiter 01274623 E04.2 last US 12/07/21 Vitamin D deficiency 347 77122 E55.9 last level 03/29/22 Screening mammography 24 775679 Z12.31 per pt had mammogram 07/07/22 Screening for malignant neoplasm of cervix 217606202 Z12.4 per pt had PAP 01/2022 Screening for malignant neoplasm of colon 638706949 Z12.11 last C scope 06/09/2020 , good for 5 years Active or passive immunization 085794394 Z23 up to datedeclin e flu [id number] Adela Umana MD [employer], [facility] [address] [place] [address] 07/18/2023 09:47:21 07/18/2023 11:01:56 Benign hypertension 58890650 I10 sees ophth every year , just seen optometry 01/27/22las t EKG 06/2023 @ cardiology Body mass index 30+ - obesity 767807055 Z68.33 educationo n diet Coronary arteriosclerosis 01794622 I25.10 per pt on cardiac cath 06/2023wil l get copy Hyperlipidemia 16771638 E78.5 last LDL 10/19/22 @ goal on prava Hypothyroidism 93757447 E03.9 with MNG ,last TSH 03/29/22 Atrial fibrillation 4943 6004 I48.91 on holter per pt , will get copyantico agulation safty education Screening mammography 24 700790 Z12.31 per pt had mammogram 07/07/22 Screening for malignant neoplasm of cervix 694555567 Z12.4 per pt had PAP 01/2022 Screening for malignant neoplasm of colon 005563726 Z12.11 last C scope 06/09/2020 , good for 5 years Active or passive immunization 745860014 Z23 up to datedeclin e flu [id number] Adela Umana MD [employer], [facility] [address] [place] [address] 10/19/2023 10:05:12 10/19/2023 11:35:13 Adult health examination 707512642 Z00.01 Benign hypertension 1072 5009 I10 sees ophth every year , just seen optometry 01/27/22las t EKG 06/2023 @ cardiology Atrial fibrillation 4943 6004 I48.91 on holter per pt , will get copyantico agulation safty education Allergic r hinitis caused by pollen 15181696 J30.1 stable Body mass index 30+ - obesity 072353047 Z68.33 educationo n diet Coronary arteriosclerosis 99875043 I25.10 per pt on cardiac cath 06/2023wil l get copy Gastroesop hageal reflux disease without esophagitis 585141079 K21.9 stable Hyperlipidemia 35301651 E78.5 last LDL 04/21/23 @ goal on prava Hypothyroidism 25414449 E03.9 with MNG ,last TSH 04/21/23 Left ventr icular hypertrophy 75762651 I51.7 mild on ECHO 04/2022 per pt Low back pain 420048492 M54.50 stable Menopause present 935576 006 N95.1 last DEXA 12/07/21 Microscopic hematuria [address] 12/07/21 , seen urology Non-toxic multinodular goiter 06649424 E04.2 last US 04/25/23 Mitral esteban ve regurgitation 14361432 I34.0 sees cardiology on reg basis Osteoarthritis 022877397 M19.90 stable Thyroid fu nction tests abnormal 022872256 R94.6 recheck Vitamin D deficiency 347 25184 E55.9 last level 03/29/22 Screening mammography 24 301720 Z12.31 per pt had mammogram 07/07/22 Screening for malignant neoplasm of cervix 141234295 Z12.4 per pt had PAP 01/2022 Screening for malignant neoplasm of colon 791864003 Z12.11 last C scope 06/09/2020 , good for 5 years Active or passive immunization 327198588 Z23 up to datedeclin e flu Advance di rective discussed with patient 171779336 Z71.89 education [id number] Adela Umana MD [facility], [facility] [address] [place] [address] 01/18/2024 09:52:40 01/18/2024 11:24:04 Hypothyroidism 84186933 E03.9 with MNG ,last TSH 01/10/24 Atrial fibrillation 4943 6004 I48.91 on holter per pt , will get copyantico agulation safty education Benign hypertension 1072 5009 I10 sees ophth every year , just seen optometry 10/2023last EKG 06/2023 @ cardiology Body mass index 30+ - obesity 900276763 Z68.33 educationo n diet Coronary arteriosclerosis 46732501 I25.10 per pt on cardiac cath 06/2023wil l get copy Hyperlipidemia 56205140 E78.5 last LDL 11/09/23 @ goal on prava Menopause present 839359 006 N95.1 last DEXA 12/07/21 Microscopic hematuria [address] 12/07/21 , seen urology Non-toxic multinodular goiter 99016656 E04.2 last US 04/25/23 Vitamin D deficiency 347 31735 E55.9 last level 11/09/23 Screening mammography 24 366974 Z12.31 per pt had mammogram 12/12/23 Screening for malignant neoplasm of cervix 107213640 Z12.4 per pt had PAP 01/2022 Screening for malignant neoplasm of colon 921740543 Z12.11 last C scope 06/09/2020 , good for 5 years Active or passive immunization 381685909 Z23 up to datedeclin e flu Long-term drug therapy 487090501 Z79.899 statin [id number] Adela Umana MD [facility], [facility] [address] [place] [address] 06/05/2024 09:52:18 06/05/2024 10:32:29 Benign hypertension 01870645 I10 sees ophth every year , seen optometry 10/2023last EKG 06/2023 @ cardiology Atrial fibrillation 4943 6004 I48.91 on holter per pt , will get copyantico agulation safty education Body mass index 30+ - obesity 402746093 Z68.33 educationo n diet Coronary arteriosclerosis 87762241 I25.10 per pt on cardiac cath 06/2023wil l get copy Gastroesop hageal reflux disease without esophagitis 984552163 K21.9 stable Hyperlipidemia 28907944 E78.5 last LDL 11/09/23 @ goal on prava Hypothyroidism 40754810 E03.9 with MNG ,last TSH 01/10/24 Microscopic hematuria [address] 12/07/21 , seen urology Non-toxic multinodular goiter 27863424 E04.2 last US 04/25/23 Vitamin D deficiency 347 18857 E55.9 last level 11/09/23 Menopause 487970886 Z78. 0 Screening mammography 24 368720 Z12.31 per pt had mammogram 12/12/23 Screening for malignant neoplasm of cervix 389242494 Z12.4 per pt had PAP 01/2024 Screening for malignant neoplasm of colon 806296137 Z12.11 last C scope 06/09/2020 , good for 5 years Active or passive immunization 505682900 Z23 up to datedeclin e flu Long-term drug therapy 535797515 Z79.899 statin [id number] Adela Umana MD [facility] [address] [place] [address] 09/09/2024 09:45:12 09/09/2024 10:37:15 Benign hypertension 84183004 I10 sees ophth every year , seen optometry 10/2023last EKG 08/2024 @ cardiology Body mass index 30+ - obesity 169697803 Z68.33 educationo n diet Allergic r hinitis caused by pollen 35451428 J30.1 stable Atrial fibrillation 4943 6004 I48.91 on holter per pt , will get copyantico agulation safty education Gastroesop hageal reflux disease without esophagitis 740813610 K21.9 stable Rogerio thyroiditis 21 696459 E06.3 per endo note 06/15/20 Hyperlipidemia 47572782 E78.5 last LDL 06/18/24 @ goal on prava Hypothyroidism 33001655 E03.9 with MNG ,last TSH 06/18/24 Long-term drug therapy 269782630 Z79.899 statin Menopause 702028904 Z78. 0 Microscopic hematuria [address] 12/07/21 , seen urology Non-toxic multinodular goiter 65763797 E04.2 last US 06/23/24 Vitamin D deficiency 347 48935 E55.9 last level 11/09/23 Screening mammography 24 502469 Z12.31 per pt had mammogram 12/12/23 Screening for malignant neoplasm of cervix 367724657 Z12.4 per pt had PAP 01/2024 Screening for malignant neoplasm of colon 611691225 Z12.11 last C scope 06/09/2020 , good for 5 years Active or passive immunization 383820135 Z23 up to datedeclin e flu Health Concerns Section Related Observation LastModified by Organization Detai ls LastModified Time None Recorded Concern Status LastModified by Organization Details LastModified Time None Recorded Advance Directives Directive Y: Payers Encounter Date Sequence Insurance Name Policy Number Policy Gao Covered Member ID Gao Member ID Guarantor Name 07/18/2023 2 [employer] (MEDICARE SUPPLEMENT) PLAN G Bárbara Bell Barb [id number] Bárbara Bell Barb 07/18/2023 1 [facility] Bárbara Bell Barb [id number] Bárbara Bell Barb 10/19/2023 2 AET[employer] (MEDICARE SUPPLEMENT) PLAN G Bárbara Bell Barb [id number] Bárbara Bell Barb 10/19/2023 1 MEDICARE B: [facility] Bábrara Bell Barb [id number] Bárbara Bell Barb 01/18/2024 2 A[employer] (MEDICARE SUPPLEMENT) PLAN G Bárbara Bell Barb [id number] Bárbara Bell Barb 01/18/2024 1 MEDICARE B: [facility] Bárbara Bell Barb [id number] Bárbara Bell Barb 06/05/2024 2 AET[employer] (MEDICARE SUPPLEMENT) PLAN G Bárbara Bell Barb [id number] Bárbara Bell Barb 06/05/2024 1 [facility]ICARE B[facility] Bárbara Bell Barb [id number] Bárbara Bell Barb 09/09/2024 2 A[employer] (MEDICARE SUPPLEMENT) PLAN G Bárbara Bell Barb [id number] Bárbara Bell Barb 09/09/2024 1 MEDICARE B: [facility] Bárbara Bell Barb [id number] Bárbara Bell Barb Notes Date Note Type [...] with exertion; no headache Adela Umana MD [address] [place] [address], [place], [address], [facility] 07/18/2023 10:56:25 10/19/2023 text/html Hypertension F/UReported bypatient.Medications: [...] loss while driving Adela Umana MD [address], [place], [address], [facility] 10/19/2023 11:27:07 01/18/2024 text/html Hypertension F/UReported bypatient.Medications: taking medications as directed; no side effects from medication Lifestyle:regular exercise; limiting/avoiding salt; compliant with low salt diet Associated Symptoms:no dizziness; no lightheadedness; no chest pain; no shortness of breath; no palpitations; no edema; no calf pain with exertion; no headache MD [address], [place], [place], [address] [place] [address] 01/18/2024 11:18:51 06/05/2024 text/html Hypertension F/UReported bypatient.Medications: taking medications as directed; no side effects from medication Lifestyle:regular exercise; limiting/avoiding salt; compliant with low salt diet Associated Symptoms:no dizziness; no lightheadedness; no chest pain; no shortness of breath; no palpitations; no edema; no calf pain with exertion; no headache Adela Umana MD [address], [place], [address] [place] [address] 06/05/2024 10:28:11 09/09/2024 text/html Hypertension F/UReported bypatient.Medications: taking medications as directed; no side effects from medication Lifestyle:regular exercise; limiting/avoiding salt; compliant with low salt diet Associated Symptoms:no dizziness; no lightheadedness; no chest pain; no shortness of breath; no palpitations; no edema; no calf pain with exertion; no headache MD [address], [place], [address], [facility] 09/09/2024 10:26:53 OBGyn Episode No OBEpisode recorded.
== END 2025-01-05 07:53 | disposition home or self-care (01) ==
LOC: ANHIMG 07:54
PROVIDERS: PCP Internal Medicine; Visit Provider Internal Medicine
DX: Z78.0 Asymptomatic menopausal state (principal); M85.851 Other specified disorders of bone density and structure, right thigh
CPT/HCPCS: 77080

== ENCOUNTER 2025-06-29 10:29 | Outpatient (CLI) | payer MEDICARE, SELFPAY ==
--- NOTE | ~2025-06-29 | MMUS_ITS ---
EXAMINATION: MM diagnostic chaitanya RT w bre, US breast RT limited INDICATION: 75-year old female; presents for evaluation of diffuse nonfocal right breast pain on and off. COMPARISON: 12/18/2024 through 02/05/2019 TECHNIQUE: Digital breast tomosynthesis True lateral, CC and MLO views of the RIGHT breast were obtained with computer-aided detection to assist in interpretation of the study. MAMMOGRAM FINDINGS: There are scattered areas of fibroglandular density. An existing circumscribed mass in the superior lateral at middle depth as not significantly changed. No new suspicious mass, calcification or architectural distortion to suggest malignancy in either breast. RIGHT BREAST ULTRASOUND FINDINGS: Targeted evaluation of the superior lateral quadrant was completed. At 10:00, 1 cm from the nipple, there is a parallel oriented circumscribed hypoechoic mass that measure 1.13 x 1.20 x 0.61 cm. This mass correlates to the mammographic finding. IMPRESSION: Benign RIGHT breast mass is unchanged. No mammographic or sonographic evidence of malignancy within the right breast that explains patient's breast pain. RECOMMENDATION: Medical management of patient's breast pain. Annual screening mammography due December 2025. BI-RADS 2, BENIGN Reviewed, dictated and finalized at location B. IMPRESSION: Benign RIGHT breast mass is unchanged. No mammographic or sonographic evidence of malignancy within the right breast t hat explains patient's breast pain. RECOMMENDATION: Medical management of patient's breast pain. Annual screening mammography due December 2025. BI-RADS 2, BENIGN
--- OUTSIDE RECORDS SUMMARY | 2025-06-29 12:21 | XMS_ITS | Data Portability ---
Author Organization [facility] [place] Address [address] [place] [address] Assessment Encounter Date Assessment Date Assessment LastModified by Organization Details LastModified Time 05/02/2022 05/02/2022 healthy female exam/menopause no further paps needed- over 70yo mammogram already ordered, encouraged colonoscopy due 2023 dexa repeat 2-3 years, continue alendronate Encouraged weight bearing exercise and 1500mg daily of Calcium with Vitamin D FU 1 year or prn [email or web address] Not available 05/02/2022 10:41:42 05/25/2025 05/25/2025 Annual gynecological exam performed. Patient will come back in a year unless there are new symptoms. [email or web address] Not available 05/25/2025 10:45:22 Plan of Treatment Reminders Order Date Submit Date Provider Last Modified By Organization Details Last Modified Time Details Appointments None recorded. Lab None recorded. Referral None recorded. Procedures None recorded. Surgeries None recorded. Imaging US, breast, unilateral - right breast pain, right breast lump around 6oclock 2024 025 [facility], [address], [address], [place], [address], 5 04:00:58 MAMMO, diagnostic, digital, unilateral 2024 025 [facility], [address], [address], [place], [address], 5 04:00:58 US, breast, unilateral 2023 024 [facility], [address], [place], [address], 17:09:26 MAMMO, diagnostic, digital, unilateral 2023 024 [facility], [address], [place], [address], 17:09:26 Medication Orders None recorded. Patient TargetsNo targets recorded. Patient InstructionsNo instructions recorded. Reason for Referral None Reported. Results Created Date Observation Date Name Description Value Unit Range Abnormal Flag Note LastModifiedBy Organization Detail LastModifiedTime 07/07/2007/07/2022 MAMMO , scree delores, bilat eral No observ ation record ed. [email or web address] [facility], [place], [address], 07/10/2022 09:19:21 03/18/20 24 03/17/2024 MAMMO , diagn ostic , digit al, unila teral No observ ation record ed. [address] [facility], [place], [address], 03/21/2024 11:43:29 03/18/20 24 03/17/2024 US, breas t, unila teral No observ ation record ed. [address], [address], 03/21/2024 11:43:29 12/19/19 25 12/18/2024 imagi ng/di agnos tic resul t No observ ation record ed. [address], [address], 01/05/2025 04:05:16 Result Notes None recorded. Problems Name Problem SNOMED Code Status Onset Date Resolution Date Notes Provider Name and Address Organization Details Recorded Time Essential hypertension 97320219 Active 2021 Michelle Burgos MD [address], [place], [address], [facility] 2 10:14:48 Hypothyroidi sm 20723145 Active 2021 Michelle Burgos MD [address], [place], [address], [facility] 2 10:14:59 Hypercholest erolemia 37033134 Active 2021 Michelle Burgos MD [address], [place], [address], [facility] 2 10:15:06 Osteopenia 379083943 Active 2021 Michelle Burgos MD [address], [place], [address], [facility] 2 10:39:13 Problem Notes None recorded. Procedures Surgical History Date Name Laterality Status Provider Name and Address Organization Details Recorded Time 12/19/19 25 Date of Last Mammogram completed Sidra Carvajal [facility] 05/25/2025 10:49:16 09/10/19 22 Most Recent Bone Density completed [facility] 05/02/2022 10:13:14 09/10/19 19 Date of Last Colonoscopy completed [facility] 05/02/2022 10:13:04 09/10/18 55 tonsillectomy completed [facility] 05/02/2022 10:15:00 Imaging Results None recorded. Procedure Notes None recorded. Medical Equipment None Reported. Allergies Allergen ID Allergen Name Allergen Category Reaction Reaction Severity Criticality Documentation Date Start Date Code Code System Note Provider Name and Address Organization Details Recorded Time 49444 Substance with sulfonami de structure and antibacte rial mechanism of action (substanc e) medicatio n Not available Not available Not available 05/02/2022 57466 8003 SNOMED Pauly trivedi [facility] 2 10:03:14 Medications Name Sig Start [...] MOUTH EVERY 8 HOURS UNTIL ALL TAKEN 05/25 completed Not Available Not Available Not Available doxycycline monohydrate 100 mg tablet TAKE 1 TABLET BY MOUTH ONCE DAILY 05/25 completed Not Available Not Available Not Available triamcinolo ne acetonide 0.1 % topical cream APPLY TOPICALLY TO THE AFFECTED AREA TWICE DAILY NEEDED active Not Available Not Available No t Available levothyroxi ne 100 mcg tablet TAKE 1 TABLET BY MOUTH EVERY DAY IN THE MORNING active Not Available Not Available No t Available famotidine 20 mg tablet TAKE 1 TABLET BY MOUTH TWICE DAILY 05/25 completed Not Available Not Available Not Available doxycycline monohydrate 100 mg capsule TAKE 1 CAPSULE BY MOUTH DAILY active Not Available Not Available No t Available losartan 25 mg tablet TAKE 1 [...] Not Available Not Available Not Available Synthroid 05/25 completed Not Available Not Available Not Available Eliquis 5 mg tablet TAKE 1 TABLET BY MOUTH TWICE DAILY active Not Available Not Available No t Available BinaxNOW COVID-19 Ag Self Test kit Use as Directed on the Package 02/24 completed Not Available Not Available Not Available Vitals Date Recorded Body height Body mass index (BMI) Body weight Systolic And Diastolic Provider Name and Address Organization Details Last Updated DateTime 02/25/2024 162.56 cm 30.6 kg/m2 75036.44 g 136/80 mm[Hg] Rohini Daigle [facility] 02/25/2024 11:26:37 Date Recorded Body height Body mass index (BMI) Body weight Systolic And Diastolic Provider Name and Address Organization Details Last Updated DateTime 05/02/2022 162.56 cm 34 kg/m2 31315.29 g 117/73 mm[Hg] Pauly Osman [facility] 05/02/2022 10:09:07 Date Recorded Body height Body mass index (BMI) Body weight Systolic And Diastolic Provider Name and Address Organization Details Last Updated DateTime 05/25/2025 162.56 cm 33.6 kg/m2 52877.1 g 128/87 mm[Hg] Sidra Carvajal [facility] 05/25/2025 10:46:23 Social History Question Answer Notes LastModified by [employer] Details LastModified Time Tobacco Smoking Status Never Smoker Pauly Osman [facility] 05/02/2022 10:09:40 In The 14 Days Before Symptom Onset, [...] For COVID-19? No Information not available 02/25/2024 Has Tobacco Cessation Counseling Been Provided? No Information not available 05/02/2022 Sex: Unknown Functional Status Question Answer Note LastModified by [employer] Details LastModified Time Do you use any illicit or recreational drugs? No Information not available 05/02/2022 Do you or have you ever used any other forms of tobacco or nicotine? No Information not available 05/02/2022 What is your level of alcohol consumption? None Information not available 05/02/2022 Mental Status None recorded. Family History Relationship Description Onset Age of this Age Resolved Age Notes LastModified by Organization Details LastModified Time Mother Malignant neoplasm of colon [email or web address] Not available 2021 10:15:17 [...] Disease N Pre-Eclampsia N Hypertension Y Osteoporosis Y Thrombophilias Y Gynecological History Statement/Question Response Abnormal Pap N Date of Last Mammogram 12/18/2024 On BCP's at Conception? N STIs/STDs N [...] Diagnosis SNOMED-CT Code Diagnosis ICD10 Code Diagnosis IMO Codes Diagnosis Note [id number] Michelle Burgos MD [place] [address],[place] [address] 05/02/2022 10:00:00 05/02/2022 10:58:10 Gynecologic examination 46226574 Z01.419 Osteopenia 196280544 M85 .80 [id number] Skylar Silverio [place] [address],[place] [address] 06/13/2023 10:42:48 06/14/2023 16:39:21 Left without being seen 1410285409 9102 Z53.21 [id number] Skylar Silverio [place] [address],[place] [address] 02/25/2024 10:57:00 02/25/2024 12:43:29 Lesion of left nipple 0380443352 1249057 N64.59 warm compress to areano s/sx's of infection, pt to notify office with any changes/pr ecautions discussedo rder for left breast imaging given Time spent in visit is a total of 18 mins with at least 50% of visit consisting of counseling and review of plan of care. [id number] Skylar Silverio REYNALDO [place] [address],[place] [address] 05/25/2025 10:28:30 05/25/2025 13:06:02 Gynecologic examination 84767975 Z01.314 1095821 WWEpostmen opausalPap - Not indicatedS TI screen - declinedMa mmogram - screening mammogram UTDColon cancer screening - UTD/PCP ordersDexa -UTD/PCPRo utine labs - UTD/PCPRTC in 1 yr or sooner if needed Do monthly self breast exams.It is advised to get annual flu shot in the fall and she could obtain at local pharmacy. If you haven't received the Tdap vaccine in the last 10 years you should obtain one as well.Have mammogram yearly, bone density every 2-3 years and stay up to date on colon cancer screening. Engage in regular exercise. Avoid tobacco and illicit drugs. This lifestyle behavior pattern will lead to less health conditions and longer life span. If BMI greater than 25 dietary consult advised.Qu estions have been answered. Pain of right breast 685 5142175 N64.4 6394119 Order given for Right diagnostic mammogram with u/s Health Concerns Section Related Observation LastModified by Organization Detai ls LastModified Time None Recorded Concern Status LastModified by Organization Details LastModified Time None Recorded Advance Directives Directive None Recorded Payers Insurance Date Sequence Insurance Name Policy Number Policy Gao Covered Member ID Gao Member ID Guarantor Name 05/25/2025 2 [employer] (MEDICARE SUPPLEMENT) Bárbara Daleyst [id number] Bárbara Barb 05/25/2025 1 DIANA [employer] - MEDICARE-RAILR [employer] S[employer]ARD (MEDICARE) Bárbara Ray Day [id number] Bárbara Barb 05/25/2025 2 [employer] (MEDICARE REPLACEMENT/AD VANTAGE - PPO) Bárbara Barb [id number] Bárbara Barb 05/25/2025 3 [employer] (MEDICARE SUPPLEMENT) Bárbara Daleyst [id number] Bárbara Barb Notes Date Note Type Note Provider Name and Address Organization Details Recorded Time 2 text/html Patient is a 72yo who presents for an annual exam. No concerns.last pap-2018 all normal for eonsmammo-2020, has order from PCPcolonoscopy-2019, 5 yearsdexa-2021 osteopeniamenopause-47yo, no bleedingsexually ukjadd-ftncgcgfsa-fchegiu se-y, walks 3x per weekdepression-deniesdome stic oqgmutdj-lubsevbpdlopu-sd oncerns-n Michelle Burgos MD [address], [place], [address], [place] [facility] 05/02/2022 10:41:56 4 text/html 74yopresents for evaluation of breast lesionnoticed small white bump on left nipple about 2 weeks agopinpoint sizedno pain/redness/drainage/or nipple dischargeno n/v/f, no flu-like symptoms mammogram last 12/2022 : normal per pt LUIS Negrete [address], [place], [address], [facility] 02/25/2024 12:38:47 5 text/html Annual [employer] Post-MenopausalReported by PatientGenitourinary symptomsFor menopausal symptoms, patient reportsno menopausal symptomsandnormal vaginal lubrication. For vaginal bleeding, patient reportshistory of menopause having occurredandno history of post menopausal bleeding. For urinary symptoms, patient reportsno hematuria,no incontinence,no nocturia, andno urinary frequency. For vulva, patient reportsno genital lesionandno vulvar atrophy. For vagina, patient reportsnormal vaginal dischargeandno vaginal atrophy.Breast symptomsFor breast, patient reportsno breast lump,no nipple discharge, andno breast pain.Psychological symptomsFor sexual complaints, patient reportsno sexual complaints. For psychological symptoms, patient reportsno depressionandno anxiety.Preventative measuresFor preventive measures, patient reportsencourage regular mammograms starting age 40,encourage self breast examination,encourage regular exercise, andencourage no tobacco use.75yo wwepostmenopausallast pap 2019 wnl per pth/o abnormal pap >20yrs ago, no procedures requiredlast mammogram 12/2023 wnl per ptdexa UTD/on alendronate (PCP manages)Right breast pain x 1 day, tender at 6 oclock throughout outer quadrant LUIS Negrete [address], [place], [address], [facility] 05/25/2025 13:02:07 OBGyn Episode Ob Episode Information Episode Created Date Number of Fetuses Patient Bloodtype Patient rh Status Prepregnancy Weight lbs Domestic Partner Domestic Partner Phone Father Name Marble Coper Status 05/02/20 22 1 CLOSED Fetus Data First Name Last Name Admitted to NICU Weight (g) Sex Living Outcome Pediatric Complications Fetus ID Race Codes Race Delivery Type M [id number] Vaginal Delivery Stuart Calculation Initial Stuart Date [...] Domestic Partner Domestic Partner Phone Father Name Marble Coper Status 05/02/20 22 1 CLOSED Fetus Data First Name Last Name Admitted to NICU Weight (g) Sex Living Outcome Pediatric Complications Fetus ID Race Codes Race Delivery Type M [id number] Vaginal Delivery Stuart Calculation Initial Stuart Date [...]
--- OUTSIDE RECORDS SUMMARY | 2025-06-29 12:21 | XMS_ITS | Clinical Summary ---
Author Organization [facility] Address [address] [place] [id number] Care Team Providers Care Crystallography Teacher Name Role Phone Unavailable Primary Care Provider [...] series) 02/20/2023 COVID-19 Vaccine (2023-2 5 season) 2025 Influenza Adult (#1) 2025 Hepatitis A Vaccines Aged Out No long er eligible based on patient's age to complete this topic Meningococcal B Vaccine Aged Out No l onger eligible based on patient's age to complete this topic Meningococcal Vaccine Aged Out No edwige chelita eligible based on patient's age to complete this topic RSV Immunizations Under 20 Months Aged Out No longer eligible based on patient's age to complete this topic
--- OUTSIDE RECORDS SUMMARY | 2025-06-29 12:21 | XMS_ITS | Clinical Summary ---
Author Organization [facility] Address [address] [address] [place] [address] Care Team Providers Care Electronic Scanner Operator Name Role Phone Adela Lu MD Primary Care Provider [phone] Allergies Active Allergy Reactions Criticality Noted Date [...] daily. Active fluticasone propionate (FLONASE) 50 mcg/spray [place], Suspension nasal inhaler Administer 2 Sprays in [...] daily as needed for Other (See Comment) (kye). Active Eliquis 5 mg tablet Take 1 Tablet (5 mg) by mouth 2 times daily. 180 Tablet 2 Active Active Problems Patient Care Coordination No te Formatting of this note migh t be different from the original. Lasting Room Supervisor: Dany Gallardo MD Problem Noted Date Diagnosed Date Benign hypertension 09/17/2023 Atrial fibrillation 04/16/2023 Social History Tobacco Use Types Packs/Day Years [...] 9:34 AM CDT Height 162.6 cm (5' 4) 04/02/2024 9:34 AM CDT Body Mass Index 30.38 04/02/2024 9:34 AM CDT Plan of Treatment Health Maintenance Due Date Last Done Comments ZOSTER VACCINE (1 of 2) 02/20/1998 DTAP/TDAP/TD VACCINES (1 - Tdap) 07/04/2008 07/03/20 08 RSV VACCINE (60+ or ) (1 - 1-dose 75+ series) 02/20/2023 INFLUENZA VACCINE (#1) 2025 0, 11/06/2019, 08/28/2018, Additional history exists OSTEOPOROSIS SCREENING 01/05/2030 5, 12/07/2021, 10/16/2019 PNEUMOCOCCAL VACCINE 50+ YEARS Completed 09/05/2018 , 04/04/2017 COLORECTAL SCREENING Discontinued 06/09/2020, 06/09/2020, 09/07/2015, Additional history exists Colorectal Cancer Screening Discontinued FIT-DNA Q 3 years Discontinued FIT/FOBT Q 1 year Discontinued Flex Sig/CT Colonography Q 5 years Discontinued Medical Devices Implanted Type Area Civil Designer Device Identifier Shelf Expiration Date Model / Serial / Lot Lens Bilateral: Eye Insurance MEDICARE RAILROAD [employer] MEDICARE SUPP AESSI Advance Directives For more information, please contact: [phone] * Full Code (Latest Code Status on File) Date Activated Date Inactivated Comments 06/14/2023 10:18 AM 06/14/2023 6:46 PM Care Teams Electronic Scanner Operator Relationship Specialty Start Date End Date Adela uL MD [phone] [id number] PCP - General Internal Medicine 06/27/23
== END 2025-06-29 10:30 | disposition home or self-care (01) ==
LOC: ANHFOHIMG 10:31
PROVIDERS: PCP Internal Medicine; Visit Provider Nurse Practitioner
DX: N64.4 Mastodynia (principal)
CPT/HCPCS: 76642; 77061; 77065; G0279